=== PATIENT | male | born 1940 | race Caucasian/White ===

== ENCOUNTER 2020-06-28 11:22 | Inpatient (IN) | payer MEDICARE, BC, SELFPAY ==
[2020-06-28] VITALS (10 sets, daily range): BP systolic 112–157; BP diastolic 56–85; PULSE 83–124; RESP 17–20; TEMP 36.8–39.3; O2SAT 92–97
--- NOTE | 2020-06-28 11:36 | ECG_ITS ---
[facility] Test Date: 2020-06-28 Pat Name: Sheng Patiño Department: Room: Gender: Male [employer] Supervisor: : 1940 Requested By: Maria Luisa Kenyon Order Number: [id number] Minoo MD: gO Lewis M.D. Measurements Intervals [place] Rate: 107 P: 84 NV: 206 QRS: -50 QRSD: 81 T: 71 QT: 307 QTc: 410 Interpretive Statements SINUS TACHYCARDIA LEFT ANTERIOR FASCICULAR BLOCK [QRS AXIS <= -45, QR IN I, RS IN II] POSSIBLE ANTERIOR MYOCARDIAL INFARCTION , OF INDETERMINATE AGE [30 ms Q WAVE IN V3/V4, OR R < 0.2 mV IN V4] Compared to ECG 12/02/2015 06:29:59 Left anterior fascicular block now present Myocardial infarct finding now present Sinus rhythm no longer present Left-axis deviation no longer present T-wave abnormality no longer present Possible ischemia no longer present Electronically Signed On 06-28-2020 22:43:59 CDT by Og Lewis M.D. [email or web address].[facility].[employer]/store/[id number]
--- NOTE | 2020-06-28 11:37 | XR_ITS ---
WS: [id number] EXAM: AP CHEST: PORTABLE UPRIGHT DATE OF EXAM: 06/28/2020, 1141 hours COMPARISON: Chest x-ray from 12/01/2015 HISTORY: Patient is 80 years old with fever and abdominal pain.. FINDINGS: The cardiac silhouette is normal in size. The mediastinal contours are normal. The pulmonary vas cularity is normal. Lungs are clear. There is no effusion or pneumothorax. Bone density is decreas ed. There are secondary signs of full thickness rotator cuff tearing in the right shoulder demonstrat ed. XR/XR chest 1V portable [id number] IMPRESSION: No acute pulmonary disease.
--- NOTE | 2020-06-28 11:40 | ED_ITS ---
HPI - Abdominal Pain General: Chief Complaint: Abdominal Pain Stated Complaint: abd pain Time Seen by Provider: 06/28/20 11:23 History of Present Illness: HPI narrative: This patient is an 80-year-old male presenting today by EMS. His family reports that he woke up this morning complaining of abdominal pain. The patient denies abdominal pain now. He does tell me he had pain earlier and has been vomiting. He is otherwise very confused and cannot provide any history including his own birthday. The patient's son, Elisha MOCTEZUMA, arrived and provided further history. He tells me that the patient did not have abdominal pain this morning but had chest pain. He also was sick . By this the son means he was having shaking chills and vomiting. The patient does have baseline dementia however his son says he has been much much worse over the past 2 days. He has been almost too weak to get up and move around. He has been getting out of breath with just mild exertion. His son said a few months ago he was able to get around quite easily. His son also noted that he takes an injectable once a week medicine for diabetes and they have noticed that when they given to him on Thursday he is routinely sick with vomiting on Thursday. The nurse at the doctor's office told him to just give half a dose which they have been doing for the past few weeks. That has seemed to help and he did not have vomiting on this past Thursday. MD elicited complaint: abdominal pain Associated Symptoms: Reports vomiting Review of Systems General: Reports: ROS unobtainable due to mental status GI: Reports: vomiting [facility] ED PFSH: Medical History Coronary artery disease Diabetes Hydronephrosis, left Hyperlipidemia Urinary retention Social History (Updated 06/29/20 @ 16:18 by Lupis Mcgill MD) Smoking and tobacco status: unknown if ever smoked Alcohol intake: unknown Physical Exam Const: COMMON NORMALS: no acute distress, patient oriented x3 and alert GENERAL APPEARANCE: cooperative and comfortable HENMT: HEAD & SCALP: normal to inspection FACE & SINUS: normal facial exam Eye: GENERAL EYE: appearance normal, both eyes and all related structures Neck/C-Spine: COMMON NORMALS: supple, no meningeal signs and no JVD Chest: COMMONS NORMALS: normal inspection of the chest Resp: COMMON NORMALS: normal respiratory effort, No use of accessory muscles and clear to auscultation bilaterally AUSCULTATION: clear to auscultation bilaterally Cardio: COMMON NORMALS: no JVD, regular rate, regular rhythm and No murmurs present (Cardio) RATE: regular rate RHYTHM: regular rhythm GI: COMMON NORMALS: Normal to inspection, nondistended, normoactive bowel sounds present, Soft to palpation and non-tender INSPECTION: Yes normal to inspection AUSCULTATION: Yes normoactive bowel sounds PALPATION: Yes Soft to palpation Back/Pelvis: COMMON NORMALS: thoracic and lumbar spine normal to inspection Extremity: COMMON NORMALS: normal to inspection Neuro: COMMON NORMALS: patient oriented x3, moves all extremities, no focal motor deficits and no sensory deficits noted SENSORIUM/ORIENTATION: Yes alert MENINGEAL SIGNS: Yes no meningeal signs Psych: COMMON NORMALS: cooperative and normal affect THOUGHT PROCESS: confused and Confabulating thought process present Skin: COMMON NORMALS: no rashes or lesions noted and turgor normal GENERAL SKIN EXAM: no rashes or lesions noted and turgor normal Course ED course: Patient will be admitted for further evaluation. He has had a fairly acute change in his mental status over the past couple of days. No clear cause for this is been found. His son said that he had not been complaining of abdominal pain but for my exam he was mildly tender on the left. He does have significant hydronephrosis but is not clear if this is acute. Vital Signs: Vital signs: Vital Signs Temperature 97.7 F 07/01/20 04:00 Pulse Rate 67 07/01/20 04:00 Respiratory Rate 18 07/01/20 04:00 Blood Pressure 154/71 07/01/20 04:00 Pulse Oximetry 98 07/01/20 04:00 MDM - Abdominal Pain Lab Data: Labs: Lab Results 06/28/20 06/28/20 06/28/20 Range/Units 11:54 11:54 11:54 WBC 4.8 (4.0-10.0) 10^3/ uL RBC 3.99 L (4.1-5.3) 10^6/u L Hgb 12.7 (11.7-16.6) g/dL Hct 40.1 L (42.0-52.0) % MCV 100.5 H (80-94) fL MCH 31.8 (28.0-34.0) pg MCHC 31.7 (30.0-36.0) g/dL RDW 14.3 (12.1-15.1) % Plt Count 118 L (130-400) 10^3/c mm MPV 9.9 (7.4-10.4) fL Neut % (Auto) 87.8 % Lymph % (Auto) 6.0 % [place] % (Auto) 4.8 % Eos % (Auto) 0.8 % Baso % (Auto) 0.4 % Neut # (Auto) 4.24 (1.8-7.7) 10^3/u L Lymph # (Auto) 0.3 L (0.8-4.8) 10^3/u L [place] # (Auto) 0.2 (0.2-0.9) 10^3/u L Eos # (Auto) 0.0 (0.0-0.8) 10^3/u L Baso # (Auto) 0.0 (0.0-0.1) 10^3/u L Nucleated RBC % (a uto) 0 % Nucleated RBCs # 0.0 /100WBC Sodium 135 L (136-145) mmol/L Potassium 4.7 (3.5-5.1) mmol/L Chloride 101 (98-107) mmol/L Carbon Dioxide 21 L (22-29) mmol/L Anion Gap 17.7 (5-19) BUN 19 (8-23) mg/dL Creatinine 1.2 (0.7-1.2) mg/dL GFR Calculation Not Reportable Glucose 179 H (65-115) mg/dL Estimat Average Gl ucose Hemoglobin A1c (4.0-6.0) % Calculated Osmolal ity 281 L (285-295) mOsm/k g Lactic Acid 3.1 H (0.5-2.2) mmol/L Calcium 9.6 (8.5-10.5) mg/dL Total Bilirubin 0.6 (0.15-1.2) mg/dL AST 27 (0-40) U/L ALT 19 (0-41) U/L Alkaline Phosphata se 91 (40-130) IU/L Troponin T Baselin e (0-15) ng/L Troponin T 120 Min breana (0-15) ng/L Delta Troponin T (0-10) ABS# C-Reactive Protein (0.0-4.9) mg/L Total Protein 7.7 (6.6-8.7) g/dL Albumin 4.3 (3.5-5.2) g/dL Globulin 3.4 (1.3-4.6) g/dL Lipase (13-60) U/L Procalcitonin (0-0.5) ng/mL TSH (0.27-4.20) uIU/ mL Urine Color (Yellow) Urine Appearance (CLEAR) Urine pH (5-7) Ur Specific Gravit y (1.005-1.030) Urine Protein (Negative) Urine Glucose (UA) (Normal) Urine Ketones (Negative) Urine Blood (Negative) Urine Nitrate (Negative) Urine Bilirubin (NEGATIVE) Prot Sulfosalicyli c Acd (Negative) Urine Urobilinogen (Negative) mg/dL Ur Leukocyte Lilli ase (Negative) Urine RBC (0-2) /hpf Urine WBC (0-5) /hpf Ur Squamous Epith Cells (0-5) Amorphous Sediment Urine Bacteria (NONE) 06/28/20 06/28/20 06/28/20 Range/Units 11:54 11:54 11:54 WBC (4.0-10.0) 10^3/ uL RBC (4.1-5.3) 10^6/u L Hgb (11.7-16.6) g/dL Hct (42.0-52.0) % MCV (80-94) fL MCH (28.0-34.0) pg MCHC (30.0-36.0) g/dL RDW (12.1-15.1) % Plt Count (130-400) 10^3/c mm MPV (7.4-10.4) fL Neut % (Auto) % Lymph % (Auto) % [place] % (Auto) % Eos % (Auto) % Baso % (Auto) % Neut # (Auto) (1.8-7.7) 10^3/u L Lymph # (Auto) (0.8-4.8) 10^3/u L [place] # (Auto) (0.2-0.9) 10^3/u L Eos # (Auto) (0.0-0.8) 10^3/u L Baso # (Auto) (0.0-0.1) 10^3/u L Nucleated RBC % (a uto) % Nucleated RBCs # /100WBC Sodium (136-145) mmol/L Potassium (3.5-5.1) mmol/L Chloride (98-107) mmol/L Carbon Dioxide (22-29) mmol/L Anion Gap (5-19) BUN (8-23) mg/dL Creatinine (0.7-1.2) mg/dL GFR Calculation Glucose (65-115) mg/dL Estimat Average Gl ucose 146 Hemoglobin A1c 6.7 H (4.0-6.0) % Calculated Osmolal ity (285-295) mOsm/k g Lactic Acid (0.5-2.2) mmol/L Calcium (8.5-10.5) mg/dL Total Bilirubin (0.15-1.2) mg/dL AST (0-40) U/L ALT (0-41) U/L Alkaline Phosphata se (40-130) IU/L Troponin T Baselin e 34 H (0-15) ng/L Troponin T 120 Min breana (0-15) ng/L Delta Troponin T (0-10) ABS# C-Reactive Protein 3.9 (0.0-4.9) mg/L Total Protein (6.6-8.7) g/dL Albumin (3.5-5.2) g/dL Globulin (1.3-4.6) g/dL Lipase 55 (13-60) U/L Procalcitonin 0.81 H (0-0.5) ng/mL TSH (0.27-4.20) uIU/ mL Urine Color (Yellow) Urine Appearance (CLEAR) Urine pH (5-7) Ur Specific Gravit y (1.005-1.030) Urine Protein (Negative) Urine Glucose (UA) (Normal) Urine Ketones (Negative) Urine Blood (Negative) Urine Nitrate (Negative) Urine Bilirubin (NEGATIVE) Prot Sulfosalicyli c Acd (Negative) Urine Urobilinogen (Negative) mg/dL Ur Leukocyte Lilli ase (Negative) Urine RBC (0-2) /hpf Urine WBC (0-5) /hpf Ur Squamous Epith Cells (0-5) Amorphous Sediment Urine Bacteria (NONE) 06/28/20 06/28/20 06/28/20 Range/Units 11:54 13:55 14:15 WBC (4.0-10.0) 10^3/ uL RBC (4.1-5.3) 10^6/u L Hgb (11.7-16.6) g/dL Hct (42.0-52.0) % MCV (80-94) fL MCH (28.0-34.0) pg MCHC (30.0-36.0) g/dL RDW (12.1-15.1) % Plt Count (130-400) 10^3/c mm MPV (7.4-10.4) fL Neut % (Auto) % Lymph % (Auto) % [place] % (Auto) % Eos % (Auto) % Baso % (Auto) % Neut # (Auto) (1.8-7.7) 10^3/u L Lymph # (Auto) (0.8-4.8) 10^3/u L [place] # (Auto) (0.2-0.9) 10^3/u L Eos # (Auto) (0.0-0.8) 10^3/u L Baso # (Auto) (0.0-0.1) 10^3/u L Nucleated RBC % (a uto) % Nucleated RBCs # /100WBC Sodium (136-145) mmol/L Potassium (3.5-5.1) mmol/L Chloride (98-107) mmol/L Carbon Dioxide (22-29) mmol/L Anion Gap (5-19) BUN (8-23) mg/dL Creatinine (0.7-1.2) mg/dL GFR Calculation Glucose (65-115) mg/dL Estimat Average Gl ucose Hemoglobin A1c (4.0-6.0) % Calculated Osmolal ity (285-295) mOsm/k g Lactic Acid (0.5-2.2) mmol/L Calcium (8.5-10.5) mg/dL Total Bilirubin (0.15-1.2) mg/dL AST (0-40) U/L ALT (0-41) U/L Alkaline Phosphata se (40-130) IU/L Troponin T Baselin e (0-15) ng/L Troponin T 120 Min [place] 30.87 H (0-15) ng/L Delta Troponin T -3.13 L (0-10) ABS# C-Reactive Protein (0.0-4.9) mg/L Total Protein (6.6-8.7) g/dL Albumin (3.5-5.2) g/dL Globulin (1.3-4.6) g/dL Lipase (13-60) U/L Procalcitonin (0-0.5) ng/mL TSH 2.15 (0.27-4.20) uIU/ mL Urine Color Yellow (Yellow) Urine Appearance Hazy A (CLEAR) Urine pH 8 H (5-7) Ur Specific Gravit y 1.010 (1.005-1.030) Urine Protein Neg (Negative) Urine Glucose (UA) Norm (Normal) Urine Ketones Negative (Negative) Urine Blood 3+ H (Negative) Urine Nitrate Negative (Negative) Urine Bilirubin Neg (NEGATIVE) Prot Sulfosalicyli c Acd Negative (Negative) Urine Urobilinogen Norm (Negative) mg/dL Ur Leukocyte Lilli ase Negative (Negative) Urine RBC 25-40 H (0-2) /hpf Urine WBC None (0-5) /hpf Ur Squamous Epith Cells Rare (0-5) Amorphous Sediment Not Reportable Urine Bacteria 1+ H (NONE) EKG Data ^: EKG 1: EKG interpretation date: 06/28/20 EKG interpretation time: 12:01 Interpretation: Sinus tachycardia with a rate of 107. Left lenticular fascicular block. HI interval is 206. QRS duration is 81 ms. Poor R wave progression. No acute ischemic changes. 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
--- NOTE | 2020-06-28 11:49 | PC.NURSE ---
pt trying to climb out of bed. pt appears disoriented. pt not verbalizing complaints to nurse. ED physician notified.
--- NOTE | 2020-06-28 11:55 | PC.NURSE ---
EKG done at 1150 and shown to ER doctor
[2020-06-28 12:00] LABS: Basophils % 0.4 %; Eosinophils % 0.8 %; Hematocrit 40.1 % (42.0-52.0); Hemoglobin 12.7 g/dL (11.7-16.6); Lymphocytes # 0.3 10^3/uL (0.8-4.8); Mean Corpuscular HGB Conc 31.7 g/dL (30.0-36.0); Mean Corpuscular Hemoglobin 31.8 pg (28.0-34.0); Mean Corpuscular Volume 100.5 fL (80-94); Mean Platelet Volume 9.9 fL (7.4-10.4); Monocytes # 0.2 10^3/uL (0.2-0.9); Monocytes % 4.8 %; Neutrophils # 4.24 10^3/uL (1.8-7.7); Neutrophils % 87.8 %; Nucleated Red Blood Cells % 0 %; Platelet Count 118 10^3/cmm (130-400); Red Blood Count 3.99 10^6/uL (4.1-5.3); Red Cell Distribution Width 14.3 % (12.1-15.1); White Blood Count 4.8 10^3/uL (4.0-10.0)
[2020-06-28] MEDS: sodium chloride 0.9% 500 ML 999 ML IV (12:14)
[2020-06-28 12:25] LABS: Alanine Aminotransferase 19 U/L (0-41); Albumin Level 4.3 g/dL (3.5-5.2); Alkaline Phosphatase 91 IU/L (40-130); Anion Gap 17.7 (5-19); Aspartate Amino Transferase 27 U/L (0-40); Blood Urea Nitrogen 19 mg/dL (8-23); Calcium 9.6 mg/dL (8.5-10.5); Carbon Dioxide 21 mmol/L (22-29); Chloride 101 mmol/L (98-107); Globulin 3.4 g/dL (1.3-4.6); Glucose 179 mg/dL (65-115); Osmolality Calculated 281 mOsm/kg (285-295); Potassium 4.7 mmol/L (3.5-5.1); Sodium 135 mmol/L (136-145); Total Bilirubin 0.6 mg/dL (0.15-1.2); Total Protein 7.7 g/dL (6.6-8.7)
[2020-06-28 12:26] LABS: Lactic Sepsis W/Reflex 3.1 mmol/L (0.5-2.2)
--- NOTE | 2020-06-28 12:35 | CT_ITS ---
WS: [id number] CT ABDOMEN AND PELVIS WITH CONTRAST HISTORY: abdominal pain, fever TECHNIQUE: Imaging performed of the abdomen and pelvis with IV contrast. Single phase imaging of the abdomen. Coronal and sagittal reformats are submitted. All CT scans at [facility] use at least one of these dose optimization techniques: automated exposure control; mA and/or kV adjustment per patient size (includes targeted exams where dose is matched to clinical indication); or iterativ e reconstruction. IV CONTRAST: Visipaque 320; 95 mL IV. Oral contrast: No DLP: 2664.06 mGy.cm COMPARISON: None available. Lower thorax: Subsegmental atelectasis at the lung bases. Normal size heart. Heavy calcification in t he [place] coronary arteries. No hiatal hernia. Liver/biliary system: Normal size liver. 3.0 cm cyst towards the diaphragmatic surface of the liver. No bile duct dilatation. Gallbladder: Normal. No gallstones or wall thickening. No pericholecystic fluid. Pancreas: Atrophied pancreas. No mass. Spleen: Normal. Adrenal glands: Normal. Right kidney: Mild diffuse cortical thinning. Cortical cyst measures 2.8 cm from the mid kidney. Ther e are additional smaller cysts. Left kidney: Cortical thinning. Moderate to severe hydronephrosis. Dilated renal pelvis and dilated t ortuous LEFT ureter. The entire ureter is dilated. The very distal ureter is poorly visualized due to edema hardening artifact secondary to the bilateral hip prostheses. There is also mild increased den sity in the renal pelvis suggests there may be an infectious process. Aorta: Mild atherosclerosis with no aneurysm. Lymphadenopathy: None. Free fluid: None. GI tract: Extensive diverticular disease throughout the colon. No GI tract obstruction. No definite a cute diverticulitis. Abdominal wall: Unremarkable abdominal wall. No hernia. Pelvis: Dilated urinary bladder. Large portion of the bladder is being obscured by artifact secondary to the hip prostheses. Bones: Increase in thoracic kyphosis. There is osteopenia. L4 anterolisthesis by 3 mm. Bilateral hip prostheses. CT/CT abdomen pelvis w con* [id number] IMPRESSION: 1. Significant LEFT hydroureteronephrosis of uncertain etiology. The very dist al LEFT ureter is obscured by artifact from the hip prostheses. Distal ureteral calcification, stricture or mass should be considered. 2. Extensive colonic diverticulosis without evidence for acute diverticulitis. 3. No ascites. 4. RIGHT renal cysts.
--- NOTE | 2020-06-28 12:36 | CT_ITS ---
WS: [id number] CT HEAD NONCONTRAST HISTORY: AMS TECHNIQUE: Contiguous axial imaging performed through the brain in 2.5 mm imaging. Bone and soft tiss ue windows. Sagittal and coronal reformats reviewed. All CT scans at [facility] use at le ast one of these dose optimization techniques: automated exposure control; mA and/or kV adjustment pe r patient size (includes targeted exams where dose is matched to clinical indication); or iterative r econstruction. DLP: 824.3 mGy.cm COMPARISON: None available. No acute intracranial hemorrhage, midline shift or mass effect. Moderate atrophy and chronic ischemic disease. Ventricles: Normal size with no hydrocephalus. Paranasal sinuses: As visualized are clear. Mastoid air cells: Well pneumatized. Calvarium and scalp: Skull is intact with no soft tissue edema or swelling. Moderate atherosclerosis intracranial carotid arteries. CT/CT head wo con* [id number] IMPRESSION: 1. No acute intracranial hemorrhage or edema. 2. Moderate atrophy and chronic ischemic disease.
[2020-06-28 12:57] LABS: Troponin(5th) Baseline 34 ng/L (0-15)
[2020-06-28 14:01] LABS: Reflex Lactate Order REFLEX LACTIC ORDERD
[2020-06-28 14:22] LABS: Troponin 5 2HR 30.87 ng/L (0-15); Troponin 5 2HR Delta -3.13 ABS# (0-10)
--- NOTE | 2020-06-28 14:26 | PC.NURSE ---
EKG done at 1425 and shown to ER doctor
--- NOTE | 2020-06-28 14:36 | ECG_ITS ---
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 Measurements Intervals [place] Rate: 96 P: 22 NE: 191 QRS: -44 QRSD: 81 T: 91 QT: 333 QTc: 422 Interpretive Statements SINUS RHYTHM LEFT AXIS DEVIATION [QRS AXIS < -30] PATTERN CONSISTENT WITH PULMONARY DISEASE NONSPECIFIC T-WAVE ABNORMALITY Compared to ECG 06/28/2020 11:52:33 Left-axis deviation now present T-wave abnormality now present Sinus tachycardia no longer present Left anterior fascicular block no longer present Myocardial infarct finding no longer present Electronically Signed On 06-28-2020 23:28:38 CDT by Og Lewis M.D. [email or web address]/store/OM/[id number]
--- NOTE | 2020-06-28 14:38 | PC.NURSE ---
Pt to CT by stretcher with tech
[2020-06-28] MEDS: iodixanol 320 mg/mL 100mL Btl IV (14:42)
[2020-06-28 14:43] LABS: Add Urine Microscopic? YES; Bilirubin Urine Neg (NEGATIVE); Blood Urine 3+ (Negative); Glucose Urine UA Norm (Normal); Ketones Urine Negative (Negative); Leukocyte Esterase Urine Negative (Negative); Nitrate Urine Negative (Negative); Protein Urine Neg (Negative); RBC Urine 25-40 /hpf (0-2); Sulfosalicylic Acid Urine Negative (Negative); Urine Appearance Hazy (CLEAR); Urine Color Yellow (Yellow); Urobilinogen Urine Norm (Negative); pH Urine 8 (5-7)
[2020-06-28 14:44] LABS: Add Urine Culture? Yes; Bacteria Urine 1+; Squamous Epithelial Cell Urine RARE (0-5)
--- NOTE | 2020-06-28 16:40 | PC.NURSE ---
gave patient a drink of water
[2020-06-28 16:54] LABS: Procalcitonin 0.81 ng/mL (0-0.5)
[2020-06-28 17:04] LABS: C Reactive Protein 3.9 mg/L (0.0-4.9); Lipase 55 U/L (13-60)
[2020-06-28] MEDS: haloperidol inj 5 mg/mL INJ 1 mL IVP (17:31)
--- NOTE | 2020-06-28 17:38 | PC.NURSE ---
pt swabbed for COVID 19 coronavirus. Pt placed on droplet isolation precautions
--- NOTE | 2020-06-28 18:21 | P.HP_ITS ---
Providers/Chief Complaint Admitting Physician: Lupis Mcgill MD Primary Care Provider: Nils Guerrero MD Chief Complaint: abd pain History of Present Illness Sheng Patiño is a 80 year old male With a past medical history of dementia, diabetes mellitus, neuropathic pain, who presents to the ER brought by the son today with chief complaint of altered mental status. I have been unable to reach the son to talk today, history is obtained by talking to the ER physician who states that patient was reportedly in his usual state of health until this morning when he started to develop shaking chills and then became more confused during course of the day. It is possible that he had complained of some chest pain versus abdominal pain. He is unable to participate in history taking right now. He had a T-max of 99 Fahrenheit here. Lactate was elevated. He is being admitted now due to concerns for sepsis. Review of Systems 2 General: Reports: ROS unobtainable due to medical condition and ROS unobtainable due to mental status Medications/Allergies Home Medications Medication Instructions Recorded Confirmed Last Taken Type cetirizine 10 mg PO BID 06/28/20 06/28/20 06/28/20 History donepezil 10 mg PO DAILY 06/28/20 06/28/20 06/28/20 History glimepiride 2 mg PO DAILY 06/28/20 06/28/20 Unknown History metformin 1,000 mg PO BID 06/28/20 06/28/20 Unknown History montelukast 10 mg PO DAILY 06/28/20 06/28/20 06/27/20 History omeprazole 20 mg PO DAILY 06/28/20 06/28/20 06/28/20 History paroxetine HCl 30 mg PO DAILY 06/28/20 06/28/20 06/28/20 History pioglitazone 30 mg PO DAILY 06/28/20 06/28/20 Unknown History polyethylene glycol 3350 [ClearLax] See Rx Instructions .ROUTE .COMPLEX 06/28/20 06/28/20 Unknown History ropinirole 1 mg PO BEDTIME 06/28/20 06/28/20 06/27/20 History simvastatin 40 mg PO DAILY 06/28/20 06/28/20 06/28/20 History Allergies Allergy/AdvReac Type Severity Reaction Status Date / Time No Known Allergies Allergy Verified 06/28/20 12:20 PFSH Acute PFSH: Medical History Coronary artery disease Diabetes Hydronephrosis, left Hyperlipidemia Urinary retention Social History (Updated 06/29/20 @ 16:18 by Lupis Mcgill MD) Smoking and tobacco status: unknown if ever smoked Alcohol intake: unknown Vitals/I&O/Wt Last Vital Signs Temp 98.3 F 06/28/20 16:39 Pulse 83 06/28/20 17:36 Resp 20 H 06/28/20 11:23 BP 154/80 06/28/20 17:36 Pulse Ox 95 06/28/20 17:36 Physical Exam Narrative: EXAM NARRATIVE: GEN: Confused and lethargic HEENT: NC/AT CVS: S1S2 N RS: CTA B/L Abd: Soft, nt/nd , bs+ GILL TENDER: unable to assess, moves all extremities in bed Data : 06/29/20 05:00 06/29/20 05:00 Micro: Microbiology 06/28/20 13:55 Blood Culture - Preliminary Blood SPECIMEN COLLECTED 06/28/20 11:54 Blood Culture - Preliminary Blood SPECIMEN COLLECTED A&P Assessment and plan (1) Sepsis: Status: Acute Qualifiers: Sepsis type: sepsis due to unspecified organism Sepsis acute organ dysfunction status: with acute organ dysfunction Severe sepsis acute organ dysfunction type: encephalopathy Severe sepsis shock status: without septic shock Qualified Code(s): A41.9 - Sepsis, unspecified organism; R65.20 - Severe sepsis without septic shock; G93.40 - Encephalopathy, unspecified (2) AMS (altered mental status): Status: Acute Qualifiers: Altered mental status type: unspecified Qualified Code(s): R41.82 - Altered mental status, unspecified (3) Hydronephrosis: Status: Inactive Qualifiers: Hydronephrosis type: unspecified Qualified Code(s): N13.30 - Unspecified hydronephrosis (4) Urinary retention: Status: Acute (5) Diabetes mellitus: Status: Acute Qualifiers: Diabetes mellitus type: type 2 Diabetes mellitus residential insulin use: without marine oil terminal superintendent use Additional A&P Information # AMS c/o chills at home, tmax here 99F Meets sepsis criteria with elevated lactate and fever,chills possible infectious source left hydronpehrois, lower part not visualized suspect methabolic encephalopathy- start CTX, vancomycin and acyclovir, cannot r /o meningitis US abdomen to evaluate lower end of ureter ?stone vs mass urology consult in am if no improvement in the next 24 hrs, likely proceed with LP blood cx pending covid ag negative # dementia: no h/o available, cant reach son, uncertain of baseline # DM: ISS Full code Dvt ppx: Attestations Medical Necessity Statement*: >2midnight admission for evakuation fo sepsis, source under evaluation Coding Level of Care Code Acute 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 Attendant for [facility] Fwd Diagnoses Sepsis A41.9; R65.20; G93.40 Sepsis type: sepsis due to unspecified organism Sepsis acute organ dysfunction status: with acute organ dysfunction Severe sepsis acute organ dysfunction type: encephalopathy Severe sepsis shock status: without septic shock AMS (altered mental status) R41.82 Altered mental status type: unspecified Hydronephrosis N13.30 Hydronephrosis type: unspecified Urinary retention R33.9 Diabetes mellitus E11.9 Diabetes mellitus type: type 2 Diabetes mellitus marine oil terminal superintendent insulin use: without residential use
--- NOTE | 2020-06-28 18:27 | PC.NURSE ---
jen membreno nurse refused to take ER report at 1825
[2020-06-28 18:44] LABS: SARS Covid-2 Antigen Negative (Negative)
[2020-06-28 18:46] LABS: Estmated Average Glucose 146; Hemoglobin A1C 6.7 % (4.0-6.0)
--- NOTE | 2020-06-28 18:52 | PC.NURSE ---
pt continues to be agitated and disoriented. sitter remains at bedside
--- NOTE | 2020-06-28 18:52 | PC.NURSE ---
orders received earlier from ER physician to place catheter. Pt able to use urinal with assistance. ED physician notified. Catheter not placed
[2020-06-28 19:32] LABS: Troponin 5 6HR 34.96 ng/L (0-15); Troponin 5 6HR Delta 0.96 ng/L (0-12)
[2020-06-28 19:33] LABS: Lactic Acid level (Lactate) 5.8 mmol/L (0.5-2.2)
[2020-06-28] MEDS: enoxaparin 40 mg/0.4 mL Syringe SUBCUT (20:04)
[2020-06-28] MEDS: sodium chloride 0.9% 1,000 ML 75 ML IV (20:05)
[2020-06-28] MEDS: cefTRIAXone 2,000 MG in sodium chloride 0.9% (plus) 50 ML 100 MG IV (20:05)
[2020-06-28 20:52] LABS: Thyroid Stimulating Hormone 2.15 uIU/mL (0.27-4.20)
[2020-06-28] MEDS: acetaminophen 650 mg Supp PR (21:04)
[2020-06-28] MEDS: sodium chloride 0.9% 1,000 ML 999 ML IV (21:21)
[2020-06-28 21:51] LABS: Glucose Point of Care 196 mg/dL (70-110)
--- NOTE | 2020-06-28 22:53 | PC.PHAR ---
Vancomycin is dosed at 1500mg IVPB every 18 hours to produce a predicted trough level of 13.81 (population based pharmacokinetic analysis). A trough level has been ordered from the lab to be obtained before the fourth dose to confirm and adjust if needed.
[2020-06-29 04:00] VITALS: BP 125/75; PULSE 81; RESP 17; TEMP 37.1; O2SAT 97
[2020-06-29 05:13] LABS: Basophils % 0.2 %; Hematocrit 34.4 % (42.0-52.0); Hemoglobin 10.9 g/dL (11.7-16.6); Lymphocytes # 0.5 10^3/uL (0.8-4.8); Lymphocytes % 9.9 %; Mean Corpuscular HGB Conc 31.7 g/dL (30.0-36.0); Mean Corpuscular Hemoglobin 32.8 pg (28.0-34.0); Mean Corpuscular Volume 103.6 fL (80-94); Mean Platelet Volume 10.2 fL (7.4-10.4); Monocytes # 0.2 10^3/uL (0.2-0.9); Monocytes % 3.6 %; Neutrophils # 4.01 10^3/uL (1.8-7.7); Neutrophils % 86.1 %; Nucleated Red Blood Cells % 0 %; Platelet Count 91 10^3/cmm (130-400); Red Blood Count 3.32 10^6/uL (4.1-5.3); Red Cell Distribution Width 14.6 % (12.1-15.1); White Blood Count 4.7 10^3/uL (4.0-10.0)
[2020-06-29 06:14] LABS: Alanine Aminotransferase 17 U/L (0-41); Albumin Level 3.6 g/dL (3.5-5.2); Alkaline Phosphatase 65 IU/L (40-130); Anion Gap 13.5 (5-19); Aspartate Amino Transferase 26 U/L (0-40); Blood Urea Nitrogen 17 mg/dL (8-23); Calcium 8.6 mg/dL (8.5-10.5); Carbon Dioxide 23 mmol/L (22-29); Chloride 104 mmol/L (98-107); Globulin 2.9 g/dL (1.3-4.6); Glucose 137 mg/dL (65-115); Osmolality Calculated 281 mOsm/kg (285-295); Potassium 4.5 mmol/L (3.5-5.1); Sodium 136 mmol/L (136-145); Total Bilirubin 0.5 mg/dL (0.15-1.2); Total Protein 6.5 g/dL (6.6-8.7)
[2020-06-29 07:08] LABS: Glucose Point of Care 116 mg/dL (70-110)
[2020-06-29 08:00] VITALS: BP 117/68; PULSE 84; RESP 16; TEMP 36.8; O2SAT 98
[2020-06-29] MEDS: cefTRIAXone 2,000 MG in sodium chloride 0.9% (plus) 50 ML 100 MG IV ×2 (08:40→21:11)
[2020-06-29 11:07] LABS: Glucose Point of Care 118 mg/dL (70-110)
[2020-06-29 12:00] VITALS: BP 117/68; BP 126/63; PULSE 84; RESP 16; TEMP 36.8; TEMP 37.1; O2SAT 97
--- NOTE | 2020-06-29 13:58 | PC.CHAP ---
Pastoral Care Encounter/Spiritual Assessment Type of Contact [] Declined director ehs visit [] Patient/Family/Request visit [] Outpatient visit [] Follow-up visit [] Physician referral [] Code/Alert [x] Routine visit [] Staff referral [] Actively dying [] Patient sleeping [] Family support [] [] Out of room [] Palliative care [] [] Receiving care in room [] Pre-surgical visit [] Trauma [] Long length of stay [] ICU visit [] Other: Relational/Emotional Strength [] Patient feels connected with others/family/visitors/staff [] Distress [] Loneliness/isolation [] Abandonment Spirituality of Patient [] Person of Kiesha [] Attends Cheondoism of their Kiesha [] Believes in Prayer [] Reads Bible or Presybeterian materials [x] There are Spiritual issues to be addressed Campus Supervisor Interventions [] Prayer [x] Active listening [x] Non-anxious presence [] Spiritual/emotional support [] Crisis/trauma care [] Spiritual counseling [] Bereavement support [] Provided bereavement packet [] Provided Bible/devotional materials [] Provided toy/stuffed animal, coloring book to patient or family member [] Provided Communion [] Anointing/[place] [] Salvation [x] Completed spiritual assessment [] Other: Impact on Illness or Injury [] Angry [] Fearful [x] Anxious [] Often cries [] Exhaustion [] Unable to work [] Unable to attend buddhism [] Unable to walk/stand [] Unable to read [] Unable to drive [] Unable to eat/drink [] Unable to sleep [x] Unable to be with family [] Patient intubated [] Other: Summary Patient stated he didn't know if he wanted prayer or not. Patient stated repeatedly that he didn't know why he was here and didn't know when he was going to be able to leave. He stated that he felt just fine. When the director ehs asked him if he was still having abdominal pain the patient stated that he wasn't having any pain. Patient was demonstrating some anxiousness and wanted to go home to be with his son. Campus Supervisor spoke with nursing staff as to whether or not a decision had been reached about when he may be able to go home. Nurse stated that the they had not been informed by the doctor of his being released. Campus Supervisor let the patient know what the nurse had stated and he stated I don't know when they'll let me go home. Time spent with patient 10 minutes
--- NOTE | 2020-06-29 15:27 | PM.CONSULT ---
Providers/Reason For Consult Consulting Physican/Specialty*: Taylor/Urology Reason for Consult*: Left Hydronephrosis Attending Physician: Lupis Mcgill MD Primary Care Provider: Nils Guerrero MD History of Present Illness History of Present Illness Sheng Patiño is a 80 year old male who I evaluated for the first time today at the request of Dr. Mcgill for left hydronephrosis, urinary retention, and concern for possible urinary source of sepsis. Patient presented to the emergency department yesterday with complaints of decreased mentation, chills, vomiting, abdominal pain. His mental status was much worse than his baseline dementia. Information was obtained from his son who knew his status well. Work-up: Fever, stable vital signs otherwise. White blood cell count of 4.8, creatinine 1.2, elevated lactic acid, normal LFTs. 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 There was significant atrophy of left kidney. No acute inflammatory changes around the left kidney or ureter the bladder was quite distended. Bladder was drained and had about 1200 cc in it. At time of admission the patient could not really relate any significant symptoms. His clinical status has improved. The source of his infection is not clear. Today he states that he is not had any renal colicky type pain. Denies any tenderness in the left flank or left upper quadrant. Does state that he voids frequently but denies history of retention. I do not think his answers are completely reliable. Genitourinary physical findings: Normal genitalia. No CVA tenderness. No left upper quadrant tenderness My general impression that he does not have obstructive pyelonephritis, the hydronephrosis appears to be chronic and without clear etiology at this point. He does need to be worked up but in the absence of clear urinary source of sepsis and no acute symptoms related to the left collecting system and no evidence of progressive renal dysfunction at this point I would hold on placing a stent. Would recommend repeating the urinalysis and consider empiric stenting if in fact his condition deteriorates or the urinalysis shows evidence of urine source for infection. Review of Systems Narrative: In general he denies any significant symptoms but I do not think he is able to give too many accurate answers at this point. The information that have been obtained by the emergency physician from his son is already mentioned above Meds/Allergies Home Medications and Allergies Home Medications Medication Instructions Recorded Confirmed Last Taken Type cetirizine 10 mg PO BID 06/28/20 06/28/20 06/28/20 History donepezil 10 mg PO DAILY 06/28/20 06/28/20 06/28/20 History glimepiride 2 mg PO DAILY 06/28/20 06/28/20 Unknown History metformin 1,000 mg PO BID 06/28/20 06/28/20 Unknown History montelukast 10 mg PO DAILY 06/28/20 06/28/20 06/27/20 History omeprazole 20 mg PO DAILY 06/28/20 06/28/20 06/28/20 History paroxetine HCl 30 mg PO DAILY 06/28/20 06/28/20 06/28/20 History pioglitazone 30 mg PO DAILY 06/28/20 06/28/20 Unknown History polyethylene glycol 3350 [ClearLax] See Rx Instructions .ROUTE .COMPLEX 06/28/20 06/28/20 Unknown History ropinirole 1 mg PO BEDTIME 06/28/20 06/28/20 06/27/20 History simvastatin 40 mg PO DAILY 06/28/20 06/28/20 06/28/20 History Allergies Allergy/AdvReac Type Severity Reaction Status Date / Time No Known Allergies Allergy Verified 06/28/20 12:20 Current Medications Current Medications Generic Name Dose Route Start Last Admin Trade Name Freq PRN Reason Stop Dose Admin Acetaminophen 650 mg 06/28/20 20:19 06/28/20 21:04 Tylenol OK 650 mg Q4H PRN Administration MILD PAIN OR INCREASE TEMP Enoxaparin Sodium 40 mg 06/28/20 19:00 06/28/20 20:04 Lovenox SUBCUT 40 mg Q24H TWILA Administration Sodium Chloride 1,000 mls @ 75 mls/hr 06/28/20 18:15 06/28/20 23:00 Sodium Chloride 0.9% IV 75 mls/hr .[id number] TWILA Infusion Ceftriaxone Sodium 2,000 mg/ 50 mls @ 100 mls/hr 06/28/20 19:00 06/29/20 08:40 Sodium Chloride IV 100 mls/hr Q12H TWILA Administration Protocol Vancomycin HCl 1,500 mg/ 250 mls @ 250 mls/hr 06/28/20 23:00 06/29/20 12:11 Sodium Chloride IV Infused Q18H TWILA Infusion Protocol As Directed Acyclovir 1,090 mg/ Sodium 121.8 mls @ 110 mls/hr 06/28/20 22:30 06/29/20 10:04 Chloride IV 110 mls/hr Q8H TWILA Administration Insulin Aspart 0 unit 06/28/20 21:00 06/29/20 11:57 Novolog SUBCUT Not Given WM&BEDTIME TWILA Protocol PFSH Acute PFSH: Medical History (Updated 06/29/20 @ 15:49 by Jono Taylor MD) Coronary artery disease Diabetes Hydronephrosis, left Hyperlipidemia Urinary retention Vitals/I&O/Wt Last Vital Signs Temp 98.8 F 06/29/20 12:00 Pulse 84 06/29/20 12:00 Resp 16 06/29/20 12:00 BP 126/63 06/29/20 12:00 Pulse Ox 97 06/29/20 12:00 06/29/20 06/29/20 06/29/20 06:59 14:59 22:59 Intake Total 1121.8 / 1768.05 250 / 250 Output Total 950 / 2200 Balance 171.8 / -431.95 250 / 250 Weight last 48 hrs Weight 240 lb 11.2 oz Weight 240 lb 11.2 oz Physical Exam Const: COMMON NORMALS: no acute distress, alert and well nourished GENERAL APPEARANCE: well kempt and well developed HENMT: COMMON NORMALS: normocephalic and atraumatic HEAD & SCALP: normocephalic and atraumatic Neck/C-Spine: COMMON NORMALS: full ROM Resp: COMMON NORMALS: normal respiratory effort EFFORT & INSPECTION: No labored and No Actively coughing Extremity: COMMON NORMALS: no clubbing, cyanosis or edema Neuro: COMMON NORMALS: no focal motor deficits SENSORIUM/ORIENTATION: Yes alert Psych: COMMON NORMALS: mental status grossly normal APPEARANCE: Yes grossly normal and Yes well kempt ATTITUDE: Yes calm and Yes engaged Skin: COMMON NORMALS: no rashes or lesions noted GENERAL SKIN EXAM: no rashes or lesions noted Urinary Catheter Management^: Reed: Cath Placed During This Visit: yes Reason for Continuing Indwelling Catheter: Acute Urinary Retention or Obstruction Urinary Catheter Date of Insertion: 06/28/20 Urinary Catheter Time of Insertion: 22:00 Data Micro: Micro: Microbiology 06/28/20 13:55 Blood Culture - Pr eliminary Blood NEGATIVE TO YURI E 06/28/20 11:54 Blood Culture - Pr eliminary Blood NEGATIVE TO YURI E A&P Assessment and plan (1) Hydronephrosis, left: Etiology unclear. Does not appear to be an acute process given the left renal atrophy. No obvious inflammatory changes around the kidney suggestive of pyelonephritis or acute obstruction. In the absence of obstructive pyelonephritis clinical picture I would hold on placing a stent but I do think this needs to be further worked up as his condition improves. If in fact he has significant clinical deterioration or development of evidence pointing to a urinary source of infection I can place a stent at any time. I will review with Dr. Mcgill Status: Acute (2) Urinary retention: About 1200 cc drained from the bladder. Status: Acute (3) Sepsis: Status: Acute Consult Attestations Medical Necessity Statement: See attending Coding Level of Care Code Acute Factory Representative for [facility] Diagnoses Hydronephrosis, left N13.30 Urinary retention R33.9 Sepsis A41.9
[2020-06-29 15:59] VITALS: BP 117/69; PULSE 91; RESP 16; TEMP 36.7; O2SAT 96
[2020-06-29 16:00] VITALS: BP 117/69; PULSE 91; RESP 16; TEMP 36.7
[2020-06-29] MEDS: sodium chloride 0.9% 1,000 ML 75 ML IV (16:25)
--- NOTE | 2020-06-29 16:26 | PM.PN ---
Subjective Subjective: Interval history: overnight tmax 102.7F, mental status much improved today, able to converse in few short sentences, states he was brought to the hospital for abdominal pain and diarrhea. US abdomen withotu any further information on hydronpehrosis Medications: Reviewed: Yes Vitals/I&O/Wt Last Vital Signs Temp 98.1 F 06/29/20 15:59 Pulse 91 06/29/20 15:59 Resp 16 06/29/20 15:59 BP 117/69 06/29/20 15:59 Pulse Ox 96 06/29/20 15:59 06/29/20 06/29/20 06/29/20 06:59 14:59 22:59 Intake Total 1121.8 / 1768.05 1153.75 / 1153.75 50 / 1203.75 Output Total 950 / 2200 Balance 171.8 / -431.95 1153.75 / 1153.75 50 / 1203.75 Weight last 48 hrs Weight 109.18 kg Weight 109.18 kg Physical Exam Narrative: EXAM NARRATIVE: GEN: Awake, alert, needs frequent reorientation, mentation improved over yesetrday CVS: S1S2 N RS: CTA B/L Abd: Soft, nt/nd , bs+ CONSUMER EDUCATION SPECIALIST: moving all extremities in bed Urinary Catheter Management^: Reed: Cath Placed During This Visit: yes Reason for Continuing Indwelling Catheter: Acute Urinary Retention or Obstruction Urinary Catheter Date of Insertion: 06/28/20 Urinary Catheter Time of Insertion: 22:00 Data : 06/29/20 05:00 06/29/20 05:00 Micro: Microbiology 06/28/20 13:55 Blood Culture - Preliminary Blood NEGATIVE TO DATE 06/28/20 11:54 Blood Culture - Preliminary Blood NEGATIVE TO DATE A&P Assessment and plan (1) Sepsis: Status: Acute Qualifiers: Sepsis type: sepsis due to unspecified organism Sepsis acute organ dysfunction status: with acute organ dysfunction Severe sepsis acute organ dysfunction type: encephalopathy Severe sepsis shock status: without septic shock Qualified Code(s): A41.9 - Sepsis, unspecified organism; R65.20 - Severe sepsis without septic shock; G93.40 - Encephalopathy, unspecified (2) AMS (altered mental status): Status: Acute Qualifiers: Altered mental status type: unspecified Qualified Code(s): R41.82 - Altered mental status, unspecified (3) Hydronephrosis: Status: Inactive Qualifiers: Hydronephrosis type: unspecified Qualified Code(s): N13.30 - Unspecified hydronephrosis (4) Urinary retention: Status: Acute (5) Diabetes mellitus: Status: Acute Qualifiers: Diabetes mellitus type: type 2 Diabetes mellitus skilled nursing insulin use: without terminal clerk use Additional A&P Information # Sepsis : fever, elevated lactate and likely infectious source # AMS, improving today Suspect urinary source given urinary retention >1250ml upon insertion of Reed, however lack of positive findings on UA, CVA tenderness or acute derangement of renal function, unsure if obstructive pyelonephritis is the commercial driver's license driver here suspect methabolic encephalopathy as cause of AMS- Continue CONSUMER EDUCATION SPECIALIST dosing for CTX, vancomycin and acyclovir for now, cannot r/o meningitis urology consult with Dr. cochran blood cx pending , NGTD covid ag negative # dementia:unsure of baseline, attempting to recah son again today # DM: ISS , controlled currently Full code Dvt ppx: lovenox Attestations Medical Necessity Statement*: sepsis, source under evaluation, need for iv abx and hydration Coding Level of Care Code Acute Basket Grader for [facility] Fwd Diagnoses Sepsis A41.9; R65.20; G93.40 Sepsis type: sepsis due to unspecified organism Sepsis acute organ dysfunction status: with acute organ dysfunction Severe sepsis acute organ dysfunction type: encephalopathy Severe sepsis shock status: without septic shock AMS (altered mental status) R41.82 Altered mental status type: unspecified Hydronephrosis N13.30 Hydronephrosis type: unspecified Urinary retention R33.9 Diabetes mellitus E11.9 Diabetes mellitus type: type 2 Diabetes mellitus terminal clerk insulin use: without terminal clerk use
[2020-06-29 17:40] LABS: Glucose Point of Care 124 mg/dL (70-110)
--- NOTE | 2020-06-29 17:49 | PC.NURSE ---
Patient had c/o discomfort at the IV site to left AC per KADIE Cox. IV was flushed with 10 mL NS and flushed without issue. IV is patent. Dressing is notably dislodged, dressing changed following aseptic technique with venaguard and foam tape. Patient tolerated procedure well with no complications. I provided education to patient's son that if the patient began experiencing more discomfort or attempting to remove IV, to utilize the call light and we would reinforce with coban and tape. He verbalizes understanding.
--- NOTE | 2020-06-29 18:19 | US_ITS ---
WS: [id number] EXAM: RENAL SONOGRAM DATE OF EXAMINATION: 06/29/2020, 0550 hours COMPARISON: CT of the abdomen and pelvis from 06/28/2020 HISTORY: Left hydronephrosis seen on recent CT examination. Unable to see the distal ureter secondary to strea k artifact from hip hardware. FINDINGS: The right kidney is 9.7 x 7.3 x 5.62 cm in size. 2 cysts are demonstrated. Each appear fairly benign in appearance. The first about 2.9 cm in maximum dimension the second about 2.6 cm in maximal dimensi on. No solid mass lesion or obstructive uropathy. Left kidney is estimated at 14.6 x 9.6 x 6.9 cm in size. There are slight cortical thinning. There ar e findings of hydronephrosis demonstrated Reed ends in the bladder. A definite stone in the pelvis a djacent to the bladder is not seen. Would recommend correlation with abdominal KUB since the CT was p erformed with IV contrast to check for late excretion to possibly see a stone in this region in the p irma. US/US renal BI with bladder IMPRESSION: Left hydronephrosis. Reed decompresses the bladder. No definite stone seen terry und the left side of the bladder. Right kidney with 2 cysts. No obstructive uropathy on the right.
[2020-06-29] MEDS: enoxaparin 40 mg/0.4 mL Syringe SUBCUT (18:41)
--- NOTE | 2020-06-29 19:17 | PC.NURSE ---
TRANSFER TO BED FROM CHAIR Ready to return to bed at shift change. Took max assist of 2 to transfer. Is quite unsteady and gets legs crossed up
[2020-06-29 20:00] VITALS: BP 129/63; PULSE 89; RESP 18; TEMP 37.1; O2SAT 97
[2020-06-29] MEDS: acyclovir 1,000 MG in sodium chloride 0.9% (100 ml) 100 ML 110 MG IV (20:00)
[2020-06-29] MEDS: ropinirole 1 mg Tablet PO (21:12)
[2020-06-29 21:27] LABS: Glucose Point of Care 147 mg/dL (70-110)
[2020-06-30] VITALS: BP 125/70; PULSE 73; RESP 18; TEMP 36.6; O2SAT 96
[2020-06-30] MEDS: acyclovir 1,000 MG in sodium chloride 0.9% (100 ml) 100 ML 110 MG IV ×2 (03:21→11:41)
[2020-06-30 03:45] LABS: Basophils % 0.3 %; Eosinophils # 0.1 10^3/uL (0.0-0.8); Eosinophils % 3.6 %; Hematocrit 33.8 % (42.0-52.0); Hemoglobin 10.5 g/dL (11.7-16.6); Lymphocytes # 0.9 10^3/uL (0.8-4.8); Lymphocytes % 29.3 %; Mean Corpuscular HGB Conc 31.1 g/dL (30.0-36.0); Mean Corpuscular Hemoglobin 31.6 pg (28.0-34.0); Mean Corpuscular Volume 101.8 fL (80-94); Mean Platelet Volume 10.6 fL (7.4-10.4); Monocytes # 0.3 10^3/uL (0.2-0.9); Monocytes % 8.5 %; Neutrophils # 1.78 10^3/uL (1.8-7.7); Nucleated Red Blood Cells % 0 %; Platelet Count 89 10^3/cmm (130-400); Red Blood Count 3.32 10^6/uL (4.1-5.3); Red Cell Distribution Width 14.6 % (12.1-15.1); White Blood Count 3.1 10^3/uL (4.0-10.0)
[2020-06-30] MEDS: acetaminophen 325 mg Tablet 650 MG PO (03:54)
[2020-06-30 04:00] VITALS: BP 148/67; PULSE 74; RESP 18; TEMP 36.6; O2SAT 98
[2020-06-30 04:00] LABS: Alanine Aminotransferase 24 U/L (0-41); Albumin Level 3.5 g/dL (3.5-5.2); Alkaline Phosphatase 66 IU/L (40-130); Anion Gap 13.8 (5-19); Aspartate Amino Transferase 38 U/L (0-40); Blood Urea Nitrogen 19 mg/dL (8-23); Calcium 8.6 mg/dL (8.5-10.5); Carbon Dioxide 23 mmol/L (22-29); Chloride 103 mmol/L (98-107); Globulin 2.8 g/dL (1.3-4.6); Glucose 115 mg/dL (65-115); Osmolality Calculated 279 mOsm/kg (285-295); Potassium 3.8 mmol/L (3.5-5.1); Sodium 136 mmol/L (136-145); Total Bilirubin 0.3 mg/dL (0.15-1.2); Total Protein 6.3 g/dL (6.6-8.7)
[2020-06-30 06:57] LABS: Glucose Point of Care 105 mg/dL (70-110)
[2020-06-30 07:38] VITALS: BP 136/56; PULSE 78; RESP 18; TEMP 36.4; O2SAT 97
[2020-06-30] MEDS: cefTRIAXone 2,000 MG in sodium chloride 0.9% (plus) 50 ML 100 MG IV (08:19)
[2020-06-30] MEDS: sodium chloride 0.9% 1,000 ML 75 ML IV (08:19)
[2020-06-30] MEDS: pantoprazole DR 40 mg Tablet PO (08:19)
[2020-06-30] MEDS: donepezil 5 MG Tablet 10 MG PO (08:19)
[2020-06-30] MEDS: PARoxetine 20 mg Tablet 30 MG PO (08:20)
[2020-06-30] MEDS: atorvastatin 40 mg Tablet 20 MG PO (08:20)
[2020-06-30 09:35] LABS: Specific Gravity, Urine 1.015 (1.005-1.030); Urine Appearance Clear (CLEAR); Urine Color Yellow (Yellow); pH Urine 5 (5-7)
[2020-06-30 09:36] LABS: Add Urine Culture? No; Add Urine Microscopic? YES; Bacteria Urine TRACE; Bilirubin Urine Neg (NEGATIVE); Blood Urine 2+ (Negative); Coarse Granular Casts Urine 0-4 /lpf; Glucose Urine UA Norm (Normal); Ketones Urine 1+ (Negative); Leukocyte Esterase Urine Negative (Negative); Mucus Urine TRACE; Nitrate Urine Negative (Negative); Protein Urine Neg (Negative); Squamous Epithelial Cell Urine 0-4 (0-5); Urobilinogen Urine Norm (Negative); WBC Urine 0-4 /hpf (0-5)
[2020-06-30 11:40] VITALS: BP 127/75; PULSE 77; RESP 18; TEMP 36.4; O2SAT 96
[2020-06-30 11:44] LABS: Glucose Point of Care 181 mg/dL (70-110)
[2020-06-30 15:41] VITALS: BP 130/77; PULSE 79; RESP 18; TEMP 36.5; O2SAT 98
--- NOTE | 2020-06-30 16:11 | P.PN_ITS ---
Subjective Subjective: Interval history: Appears significantly improved today. Mentation is better. He is able to correctly tell me his name, name of his son, his 2 weeks ago which is accurate, tells me his son and moved down from [place] to take care of him which is also accurate. He also has a negative nitrate, however does not tell me his correct date of . Thinks he is in [place] but with reorientation notes that he is in [place]. Medications: Reviewed: Yes Vitals/I&O/Wt Last Vital Signs Temp 97.7 F 06/30/20 15:41 Pulse 79 06/30/20 15:41 Resp 18 06/30/20 15:41 BP 130/77 06/30/20 15:41 Pulse Ox 98 06/30/20 15:41 06/30/20 06/30/20 06/30/20 06:59 14:59 22:59 Intake Total 1270 / 3353.75 720 / 720 Output Total 750 / 1700 Balance 520 / 1653.75 720 / 720 Weight last 48 hrs Weight 109.18 kg Weight 109.18 kg Physical Exam Narrative: EXAM NARRATIVE: GEN: Awake, alert, needs reoriemtation but othe rwise mentation improving, less lethargic today CVS: S1S2 N RS: CTA B/L Abd: Soft, nt/nd , bs+ BENZENE WORKER: no focal neuro deficits : Reed in place Urinary Catheter Management^: Reed: Cath Placed During This Visit: yes Reason for Continuing Indwelling Catheter: Acute Urinary Retention or Obstruction Urinary Catheter Date of Insertion: 06/28/20 Urinary Catheter Time of Insertion: 22:00 Data : 06/30/20 03:17 06/30/20 03:17 Micro: Microbiology 06/28/20 14:15 Urine Culture - Final Urine,Clean Catch 06/28/20 13:55 Blood Culture - Preliminary Blood NEGATIVE TO DATE 06/28/20 11:54 Blood Culture - Preliminary Blood NEGATIVE TO DATE A&P Assessment and plan (1) Sepsis: Status: Acute Qualifiers: Sepsis type: sepsis due to unspecified organism Sepsis acute organ dy sfunction status: with acute organ dysfunction Severe sepsis acute organ d ysfunction type: encephalopathy Severe sepsis shock status: without septic shock Qualified Code(s): A41.9 - Sepsis, unspecified organism; R65.20 - Severe sepsis without septic shock; G93.40 - Encephalopathy, unspecified (2) AMS (altered mental status): Status: Acute Qualifiers: Altered mental status type: unspecified Qualified Code(s): R41.82 - Altered mental status, unspecified (3) Hydronephrosis: Status: Inactive Qualifiers: Hydronephrosis type: unspecified Qualified Code(s): N13.30 - Unspecified hydronephrosis (4) Urinary retention: Status: Acute (5) Diabetes mellitus: Status: Acute Qualifiers: Diabetes mellitus type: type 2 Diabetes mellitus long term care pharmacist insulin use: without residential use Additional A&P Information # Sepsis : fever, elevated lactate and likely infectious source # AMS, not significantly improving. Noted the patient developing some degree of pancytopenia. WBC down to 3.1 platelets at 89. No one infectious source clearly discernible at this time. Differentials include urinary source given urinary retention >1250ml upon insertion of Reed and left hydronephrosis, however lack of positive findings on UA, CVA tenderness or acute derangement of renal function, unsure if obstructive pyelonephritis is the bung driver here. Appreciate Dr. Taylor's recommendations, left hydronephrosis apppears to be a more chronic process and will need further w/up as outpatient. urine cx with multiple small colonies, likely contaminants. Other possibilities include tick borne illnesses. meningitis appears to be less likely given improvement in mentation in less than 24hrs. Suspect methabolic encephalopathy was the cause of AMS. Deescalate abx today to Ceftriaxone 1g iv q24h, d/c vancomycin and acyclovir, start doxycycline and monitor closely for any clinical changes. blood cx negative to date covid ag negative CT abdomen with hydronpehrosis but no other acute findings CXR with clear lungs # dementia: mentation improving. # DM: ISS , controlled currently Full code Dvt ppx: lovenox Attestations Medical Necessity Statement*: de escalate abx, monitor closely with change Coding Level of Care Code Acute Production Analyst for [facility] Fwd Diagnoses Sepsis A41.9; R65.20; G93.40 Sepsis type: sepsis due to unspecified organism Sepsis acute organ dysfunction status: with acute organ dysfunction Severe sepsis acute organ dysfunction type: encephalopathy Severe sepsis shock status: without septic shock AMS (altered mental status) R41.82 Altered mental status type: unspecified Hydronephrosis N13.30 Hydronephrosis type: unspecified Urinary retention R33.9 Diabetes mellitus E11.9 Diabetes mellitus type: type 2 Diabetes mellitus long term care pharmacist insulin use: without residential use
[2020-06-30 16:46] LABS: Glucose Point of Care 184 mg/dL (70-110)
[2020-06-30] MEDS: doxycycline 100 mg Tablet PO (17:42)
[2020-06-30] MEDS: enoxaparin 40 mg/0.4 mL Syringe SUBCUT (17:43)
--- NOTE | 2020-06-30 18:15 | PC.NURSE ---
SHIFT SUMMARY PATIENT HAS DONE WELL TODAY. BEEN UP IN THE CHAIR MOST OF THE DAY. PATIENT HAD 1300ML OF URINE OUTPUT. GOOD PO INTAKE. PATIENT BECOMING MORE ALERT THROUGHOUT THE DAY.
[2020-06-30 19:29] VITALS: BP 156/71; PULSE 74; RESP 20; TEMP 37; O2SAT 98
[2020-06-30 20:45] LABS: Glucose Point of Care 158 mg/dL (70-110)
[2020-06-30] MEDS: ropinirole 1 mg Tablet PO (20:52)
[2020-07-01] VITALS (7 sets, daily range): BP systolic 138–177; BP diastolic 62–81; PULSE 63–72; RESP 18–20; TEMP 36.4–36.9; O2SAT 97–99
[2020-07-01 04:57] LABS: Basophils % 0.3 %; Eosinophils # 0.3 10^3/uL (0.0-0.8); Eosinophils % 8.4 %; Hemoglobin 10.5 g/dL (11.7-16.6); Lymphocytes # 1.1 10^3/uL (0.8-4.8); Lymphocytes % 38.2 %; Mean Corpuscular HGB Conc 32.8 g/dL (30.0-36.0); Mean Corpuscular Hemoglobin 33.1 pg (28.0-34.0); Mean Corpuscular Volume 100.9 fL (80-94); Mean Platelet Volume 10.6 fL (7.4-10.4); Monocytes # 0.2 10^3/uL (0.2-0.9); Monocytes % 8.1 %; Neutrophils # 1.32 10^3/uL (1.8-7.7); Neutrophils % 44.7 %; Nucleated Red Blood Cells % 0 %; Platelet Count 96 10^3/cmm (130-400); Red Blood Count 3.17 10^6/uL (4.1-5.3); Red Cell Distribution Width 14.3 % (12.1-15.1)
[2020-07-01 05:23] LABS: Alanine Aminotransferase 23 U/L (0-41); Albumin Level 3.3 g/dL (3.5-5.2); Alkaline Phosphatase 80 IU/L (40-130); Anion Gap 12.8 (5-19); Aspartate Amino Transferase 32 U/L (0-40); Blood Urea Nitrogen 18 mg/dL (8-23); Calcium 8.4 mg/dL (8.5-10.5); Carbon Dioxide 23 mmol/L (22-29); Chloride 105 mmol/L (98-107); Globulin 2.8 g/dL (1.3-4.6); Glucose 144 mg/dL (65-115); Osmolality Calculated 283 mOsm/kg (285-295); Potassium 3.8 mmol/L (3.5-5.1); Sodium 137 mmol/L (136-145); Total Bilirubin 0.3 mg/dL (0.15-1.2); Total Protein 6.1 g/dL (6.6-8.7)
--- NOTE | 2020-07-01 05:23 | PC.NURSE ---
SHIFT SUMMARY Has rested well. Confused but cooperative. Occ takes off O2 but otherwise doing well. Not trying to get OOB tonight. Has had 1:1 sitter at bedside. Going to try today without sitter and see how pt does. Good urine output from Reed. IV infusing at 50ml/hr rate.
[2020-07-01 06:39] LABS: Glucose Point of Care 131 mg/dL (70-110)
[2020-07-01] MEDS: cefTRIAXone 1,000 MG in sodium chloride 0.9% (plus) 50 ML 100 MG IV (07:20)
[2020-07-01] MEDS: sodium chloride 0.9% 1,000 ML 75 ML IV (07:20)
[2020-07-01] MEDS: donepezil 5 MG Tablet 10 MG PO (07:21)
[2020-07-01] MEDS: doxycycline 100 mg Tablet PO ×2 (07:21→17:12)
[2020-07-01] MEDS: pantoprazole DR 40 mg Tablet PO (07:21)
[2020-07-01] MEDS: atorvastatin 40 mg Tablet 20 MG PO (07:21)
[2020-07-01] MEDS: PARoxetine 20 mg Tablet 30 MG PO (07:21)
[2020-07-01 10:40] LABS: Glucose Point of Care 198 mg/dL (70-110)
--- NOTE | 2020-07-01 12:25 | PC.SOCIAL ---
IMM completed 07/01/2020 @ 1013. Explained rights and copy of rights given to pt.
--- NOTE | 2020-07-01 16:38 | P.PN_ITS ---
Subjective Subjective: Interval history: no acute events, improving mentation, no further fever, per son at bedside, he feels his dad i still not back at baseline. Stable pancytopenia. Medications: Reviewed: Yes Vitals/I&O/Wt Last Vital Signs Temp 98.5 F 07/01/20 15:51 Pulse 70 07/01/20 15:51 Resp 18 07/01/20 15:51 BP 138/73 07/01/20 15:51 Pulse Ox 98 07/01/20 15:51 07/01/20 07/01/20 07/01/20 06:59 14:59 22:59 Intake Total 150 / 2090 600 / 600 Output Total 1450 / 2650 1000 / 1000 1000 / 2000 Balance -1300 / -560 -400 / -400 -1000 / -1400 Physical Exam Narrative: EXAM NARRATIVE: GEN: Awake, alert and oriented, no acute distress CVS: S1S2 N RS: CTA B/L Abd: Soft, nt/nd , bs+ SUSTAINABILITY PROJECT COORDINATOR: no focal neuro deficits Urinary Catheter Management^: Reed: Cath Placed During This Visit: yes Reason for Continuing Indwelling Catheter: Acute Urinary Retention or Obstruction Urinary Catheter Date of Insertion: 06/28/20 Urinary Catheter Time of Insertion: 22:00 Data : 07/01/20 04:05 07/01/20 04:05 A&P Assessment and plan (1) Sepsis: Status: Acute Qualifiers: Sepsis type: sepsis due to unspecified organism Sepsis acute organ dysfunction status: with acute organ dysfunction Severe sepsis acute organ dysf unction type: encephalopathy Severe sepsis shock status: without septic shock Qualified Code(s): A41.9 - Sepsis, unspecified organism; R65.20 - Severe sepsis without septic shock; G93.40 - Encephalopathy, unspecified (2) AMS (altered mental status): Status: Acute Qualifiers: Altered mental status type: unspecified Qualified Code(s): R41.82 - Altered mental status, unspecified (3) Hydronephrosis: Status: Inactive Qualifiers: Hydronephrosis type: unspecified Qualified Code(s): N13.30 - Unspecified hydronephrosis (4) Urinary retention: Status: Acute (5) Diabetes mellitus: Status: Acute Qualifiers: Diabetes mellitus type: type 2 Diabetes mellitus mcc insulin use: without mcc use Additional A&P Information # Sepsis : resolving # AMS, Now much improved Able to correctly tell me name, place, age, , son's name, 's passing 2 weeks ago, his and son's occupation. kids' names etc, tolerating po intake. Noted the patient developing some degree of pancytopenia. No one infectious source clearly discernible at this time. Differentials include urinary source given urinary retention >1250ml upon insertion of Reed and left hydronephrosis, however lack of positive findings on UA, CVA tenderness or acute derangement of renal function, unsure if obstructive pyelonephritis is the route relief driver here. Appreciate Dr. Taylor's recommendations, left hydronephrosis apppears to be a more chronic process and will need further w/up as outpatient. urine cx with multiple small colonies, likely contaminants. Other possibilities include tick borne illnesses. meningitis appears to be less likely given improvement in mentation in less than 24hrs. Suspect methabolic encephalopathy was the cause of AMS. Abx de escalated to Ceftriaxone 1g iv q24h, and doxycycline. tick panel pending blood cx negative to date covid ag negative CT abdomen with hydronpehrosis but no other acute findings CXR with clear lungs # dementia: mentation improving, however per son still not back at recent baseline. May need LP if persisting concern. Unable to get IR procedures over the weekend. Low suspicion for now # DM: ISS , controlled currently Full code Dvt ppx: lovenox Attestations Medical Necessity Statement*: improving sepsis, monitor mental status closely with de escalation of abx Coding Level of Care Code Acute Radiation Monitor for [facility] Fwd Diagnoses Sepsis A41.9; R65.20; G93.40 Sepsis type: sepsis due to unspecified organism Sepsis acute organ dysfunction status: with acute organ dysfunction Severe sepsis acute organ dysfunction type: encephalopathy Severe sepsis shock status: without septic shock AMS (altered mental status) R41.82 Altered mental status type: unspecified Hydronephrosis N13.30 Hydronephrosis type: unspecified Urinary retention R33.9 Diabetes mellitus E11.9 Diabetes mellitus type: type 2 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
[2020-07-01 16:46] LABS: Glucose Point of Care 188 mg/dL (70-110)
[2020-07-01] MEDS: enoxaparin 40 mg/0.4 mL Syringe SUBCUT (17:12)
--- NOTE | 2020-07-01 17:55 | PC.NURSE ---
SHIFT SUMMARY PATIENT HAS DONE WELL TODAY. HE HAS BEEN MORE ALERT. STILL HAS A FEW MOMENTS OF CONFUSION. GOOD PO INTAKE AND URINE OUTPUT. NO PAIN. NO COMPLAINTS AT THIS TIME.
[2020-07-01 19:40] LABS: Glucose Point of Care 186 mg/dL (70-110)
[2020-07-01] MEDS: ropinirole 1 mg Tablet PO (21:28)
[2020-07-02 03:45] VITALS: BP 154/76; PULSE 51; RESP 16; TEMP 36.3; O2SAT 96
[2020-07-02 04:31] LABS: Basophils % 0.6 %; Eosinophils # 0.3 10^3/uL (0.0-0.8); Eosinophils % 8.9 %; Hematocrit 34.7 % (42.0-52.0); Hemoglobin 11.2 g/dL (11.7-16.6); Lymphocytes # 1.4 10^3/uL (0.8-4.8); Lymphocytes % 39.8 %; Mean Corpuscular HGB Conc 32.3 g/dL (30.0-36.0); Mean Corpuscular Hemoglobin 31.9 pg (28.0-34.0); Mean Corpuscular Volume 98.9 fL (80-94); Mean Platelet Volume 10.7 fL (7.4-10.4); Monocytes # 0.2 10^3/uL (0.2-0.9); Monocytes % 6.4 %; Neutrophils # 1.58 10^3/uL (1.8-7.7); Nucleated Red Blood Cells % 0 %; Platelet Count 131 10^3/cmm (130-400); Red Blood Count 3.51 10^6/uL (4.1-5.3); Red Cell Distribution Width 14.1 % (12.1-15.1); White Blood Count 3.6 10^3/uL (4.0-10.0)
[2020-07-02 04:43] LABS: Alanine Aminotransferase 29 U/L (0-41); Albumin Level 3.5 g/dL (3.5-5.2); Alkaline Phosphatase 114 IU/L (40-130); Anion Gap 12.8 (5-19); Aspartate Amino Transferase 39 U/L (0-40); Blood Urea Nitrogen 19 mg/dL (8-23); Calcium 8.7 mg/dL (8.5-10.5); Carbon Dioxide 24 mmol/L (22-29); Chloride 104 mmol/L (98-107); Glucose 163 mg/dL (65-115); Osmolality Calculated 284 mOsm/kg (285-295); Potassium 3.8 mmol/L (3.5-5.1); Sodium 137 mmol/L (136-145); Total Bilirubin 0.3 mg/dL (0.15-1.2); Total Protein 6.5 g/dL (6.6-8.7)
--- NOTE | 2020-07-02 06:12 | PC.NURSE ---
SHIFT SUMMARY Patient had a shower before bed and has rested well all night. Good output and no complaints of pain.
[2020-07-02 06:22] LABS: Glucose Point of Care 149 mg/dL (70-110)
[2020-07-02 07:37] VITALS: BP 148/80; PULSE 69; RESP 18; TEMP 36.5; O2SAT 95
[2020-07-02] MEDS: cefTRIAXone 1,000 MG in sodium chloride 0.9% (plus) 50 ML 100 MG IV (08:55)
[2020-07-02] MEDS: PARoxetine 20 mg Tablet 30 MG PO (08:57)
[2020-07-02] MEDS: donepezil 5 MG Tablet 10 MG PO (08:58)
[2020-07-02] MEDS: pantoprazole DR 40 mg Tablet PO (09:02)
[2020-07-02] MEDS: doxycycline 100 mg Tablet PO ×2 (09:02→18:20)
[2020-07-02] MEDS: atorvastatin 40 mg Tablet 20 MG PO (09:03)
[2020-07-02 10:51] LABS: Glucose Point of Care 266 mg/dL (70-110)
--- NOTE | 2020-07-02 11:11 | FL_ITS ---
WS: [id number] LUMBAR PUNCTURE CLINICAL INFORMATION: ams Fluoroscopy time 0.2 minutes COMPARISON: None. TECHNIQUE: Informed consent: The procedure and its potential risk and complications were discussed with the néstor ent. Verbal and written consent was obtained. Timeout: A timeout was performed to confirm correct patient, procedure, and site. Patient was prepped and draped in the usual sterile fashion. Lidocaine 1% was used for local anesthes ia. Utilizing fluoroscopic guidance, a 3.5 inch 22-gauge spinal needle was advanced into the subarach noid space at L3-L4 via right oblique sublaminar approach. Free flow of clear CSF was obtained. 10 cc of CSF was collected and sent the lab for further analysis. FLUOROSCOPIC TIME: 0.2 minutes. FL/FL guided lumbarpunc dx* [id number] IMPRESSION: Fluoroscopically guided lumbar puncture. No immediate complications
[2020-07-02 11:28] VITALS: BP 156/83; PULSE 72; RESP 18; TEMP 36.7; O2SAT 94
--- NOTE | 2020-07-02 11:54 | PM.PN ---
Subjective Subjective: Interval history: This morning patient was examined, he was lying in bed, Reed catheter still in place, he is alert and oriented x2, does not know the president [employer], does not know the year, he does not know his age, states that he is 78, but is 80, he tells me his 2 months ago, does not know why she , tells me that he has 3 sons, gets other questions appropriately, but does deftly has persistent confusion, no neck pain, no neck stiffness, no fevers, chills, patient actually does not have any significant complaints, does not know why he still here in the hospital, has ambulated without any significant difficulty, no neck pain, no neck stiffness. He tells me that he used to work in [employer], he is retired, [place], his was a primary homemaker, she unfortunately suddenly 2 months ago, it is been difficult to cope, he does state that he is depressed, his son tells me that his primary care physician has been trying medication for depression, but none seem to work, does state that he has anxious episodes, denies thoughts of hurting himself, denies thoughts of hurting others, denies seeing or hearing things that are not there I spoke to patient son over the phone, patient has 3 sons, patient son is concerned about his change in his mentation, but they have been concerned about depression as a possible etiology, given his 's sudden passing, he does have a history of dementia, but patient's family is concerned for infectious etiologies, and want a lumbar puncture to be performed, advised the risk and benefits, voiced understanding, all questions answered, agreed to proceed Medications: Reviewed: Yes Vitals/I&O/Wt Last Vital Signs Temp 98.1 F 07/02/20 11:28 Pulse 72 07/02/20 11:28 Resp 18 07/02/20 11:28 BP 156/83 07/02/20 11:28 Pulse Ox 94 07/02/20 11:28 07/01/20 07/02/20 07/02/20 22:59 06:59 14:59 Intake Total 480 / 480 Output Total 1000 / 2000 1200 / 3200 650 / 650 Balance -1000 / -1350 -1200 / -2550 -170 / -170 Physical Exam Const: COMMON NORMALS: no acute distress and alert HENMT: COMMON NORMALS: normocephalic HEAD & SCALP: normocephalic Neck/C-Spine: COMMON NORMALS: no JVD Resp: COMMON NORMALS: normal respiratory effort, No retractions, No use of accessory muscles and clear to auscultation bilaterally AUSCULTATION: clear to auscultation bilaterally Cardio: COMMON NORMALS: no JVD, regular rate, regular rhythm, S1 normal heart sound present and S2 normal heart sound present RATE: regular rate RHYTHM: regular rhythm HEART SOUNDS: S1 normal heart sound present and S2 normal heart sound present GI: COMMON NORMALS: Normal to inspection, nondistended, normoactive bowel sounds present, Soft to palpation, non-tender, No hepatosplenomegaly present, no masses and no bruits PALPATION: Yes Soft to palpation and Yes No hepatosplenomegaly present Extremity: COMMON NORMALS: capillary refill normal, no clubbing, cyanosis or edema, no calf tenderness and no pedal edema Neuro: SENSORIUM/ORIENTATION: Yes alert Psych: ATTITUDE: Yes calm ACTIVITY/MOTOR BEHAVIOR: Yes appropriate eye contact MOOD & AFFECT: Yes depressed mood THOUGHT CONTENT: Yes Normal thought content present, No Suicidality present and No Homicidality present ATTENTION/CONCENTRATION: Yes attention grossly impaired MEMORY/COGNITION: Yes memory grossly impaired Urinary Catheter Management^: Reed: Cath Placed During This Visit: yes, but has since been removed by the nurse Reason for Continuing Indwelling Catheter: Decision to DC Catheter Urinary Catheter Date of Insertion: 06/28/20 Urinary Catheter Time of Insertion: 22:00 Date Urinary Catheter Removed: 07/02/20 Time Urinary Catheter Discontinued: 10:00 Data : 07/02/20 03:52 07/02/20 03:52 A&P Assessment and plan (1) Sepsis: Status: Acute Qualifiers: Sepsis type: sepsis due to unspecified organism Sepsis acute organ dysfunction status: with acute organ dysfunction Severe sepsis acute organ dysfunction type: encephalopathy Severe sepsis shock status: without septic shock Qualified Code(s): A41.9 - Sepsis, unspecified organism; R65.20 - Severe sepsis without septic shock; G93.40 - Encephalopathy, unspecified (2) AMS (altered mental status): Status: Acute Qualifiers: Altered mental status type: unspecified Qualified Code(s): R41.82 - Altered mental status, unspecified (3) Hydronephrosis: Status: Inactive Qualifiers: Hydronephrosis type: unspecified Qualified Code(s): N13.30 - Unspecified hydronephrosis (4) Urinary retention: Status: Acute (5) Diabetes mellitus: Status: Acute Qualifiers: Diabetes mellitus type: type 2 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 kids' names etc, tolerating po intake. Noted the patient developing some degree of pancytopenia. No one infectious source clearly discernible at this time. Differentials include urinary source given urinary retention >1250ml upon insertion of Reed and left hydronephrosis, however lack of positive findings on UA, CVA tenderness or acute derangement of renal function, unsure if obstructive pyelonephritis is the transfer driver here. Appreciate Dr. Taylor's recommendations, left hydronephrosis apppears to be a more chronic process and will need further w/up as outpatient. urine cx with multiple small colonies, likely contaminants. Other possibilities include tick borne illnesses. meningitis appears to be less likely given improvement in mentation in less than 24hrs. Suspect methabolic encephalopathy was the cause of AMS. Abx de escalated to Ceftriaxone 1g iv q24h, and doxycycline. tick panel pending blood cx negative to date covid ag negative CT abdomen with hydronpehrosis but no other acute findings CXR with clear lungs plan on doing a lumbar puncture today # dementia: mentation improving, however per son still not back at recent baseline. May need LP if persisting concern. Unable to get IR procedures over the weekend. Low suspicion for now Atypical depression, psychiatry consulted # DM: ISS , controlled currently Full code Dvt ppx: lovenox Attestations Medical Necessity Statement*: Patient requires hospitalization for altered mental status,'s second infectious etiology versus dementia versus atypical depression, planning a preferring lumbar puncture today Coding Level of Care Code Acute Chief [employer] for [facility] F[facility] Diagnoses Sepsis A41.9; R65.20; G93.40 Sepsis type: sepsis due to unspecified organism Sepsis acute organ dysfunction status: with acute organ dysfunction Severe sepsis acute organ dysfunction type: encephalopathy Severe sepsis shock status: without septic shock AMS (altered mental status) R41.82 Altered mental status type: unspecified Hydronephrosis N13.30 Hydronephrosis type: unspecified Urinary retention R33.9 Diabetes mellitus E11.9 Diabetes mellitus type: type 2 Diabetes mellitus keno terminal operator insulin use: without keno terminal operator use
[2020-07-02 12:03] LABS: Lyme AB Screen <0.90 index
[2020-07-02 13:42] LABS: Mononuclear WBC CSF % 0 % (50-90); Polynuclear Cells ,CSF # 0.001 10^3/uL (0-10); Polynuclear WBC CSF % 100 % (0-10); Red Blood Cell CSF 0 10^3/uL (0-0); White Blood Cell CSF 1 /uL (0-5)
[2020-07-02 14:08] LABS: Glucose CSF 101 mg/dL (40-70); Total Protein CSF 62 mg/dL (15-45)
[2020-07-02 14:28] LABS: CSF Specific Gravity 1.006
[2020-07-02 14:40] LABS: Appearance CSF CLEAR (CLEAR); Color CSF COLORLESS (COLORLESS); Pathology Referral Yes
[2020-07-02 15:46] VITALS: BP 143/71; PULSE 64; RESP 18; TEMP 36.8; O2SAT 96
[2020-07-02 17:22] LABS: Glucose Point of Care 137 mg/dL (70-110)
[2020-07-02] MEDS: enoxaparin 40 mg/0.4 mL Syringe SUBCUT (18:21)
[2020-07-02 20:00] VITALS: BP 144/74; PULSE 66; RESP 16; TEMP 36.4; O2SAT 95
[2020-07-02 20:36] LABS: Glucose Point of Care 295 mg/dL (70-110)
[2020-07-02] MEDS: ropinirole 1 mg Tablet PO (21:51)
[2020-07-03] VITALS: BP 152/77; PULSE 66; RESP 16; TEMP 36.6; O2SAT 96
[2020-07-03 04:00] VITALS: BP 155/70; PULSE 64; RESP 16; TEMP 36.5; O2SAT 95
[2020-07-03 04:44] LABS: Basophils % 0.7 %; Eosinophils # 0.4 10^3/uL (0.0-0.8); Hematocrit 35.3 % (42.0-52.0); Hemoglobin 11.4 g/dL (11.7-16.6); Lymphocytes # 1.4 10^3/uL (0.8-4.8); Lymphocytes % 34.6 %; Mean Corpuscular HGB Conc 32.3 g/dL (30.0-36.0); Mean Corpuscular Hemoglobin 32.5 pg (28.0-34.0); Mean Corpuscular Volume 100.6 fL (80-94); Mean Platelet Volume 10.3 fL (7.4-10.4); Monocytes # 0.4 10^3/uL (0.2-0.9); Monocytes % 8.8 %; Neutrophils % 46.4 %; Nucleated Red Blood Cells % 0 %; Platelet Count 142 10^3/cmm (130-400); Red Blood Count 3.51 10^6/uL (4.1-5.3); Red Cell Distribution Width 14.1 % (12.1-15.1); White Blood Count 4.1 10^3/uL (4.0-10.0)
[2020-07-03 05:16] LABS: Alanine Aminotransferase 41 U/L (0-41); Albumin Level 3.7 g/dL (3.5-5.2); Alkaline Phosphatase 126 IU/L (40-130); Anion Gap 13.9 (5-19); Aspartate Amino Transferase 47 U/L (0-40); Blood Urea Nitrogen 20 mg/dL (8-23); C Reactive Protein 14.1 mg/L (0.0-4.9); Calcium 8.4 mg/dL (8.5-10.5); Carbon Dioxide 24 mmol/L (22-29); Chloride 104 mmol/L (98-107); Globulin 3.2 g/dL (1.3-4.6); Glucose 174 mg/dL (65-115); Magnesium 1.8 mg/dL (1.7-2.3); Osmolality Calculated 287 mOsm/kg (285-295); Potassium 3.9 mmol/L (3.5-5.1); Sodium 138 mmol/L (136-145); Total Bilirubin 0.4 mg/dL (0.15-1.2); Total Protein 6.9 g/dL (6.6-8.7)
[2020-07-03 06:40] LABS: Glucose Point of Care 191 mg/dL (70-110)
[2020-07-03 08:00] VITALS: BP 137/73; PULSE 60; RESP 18; TEMP 36.5; O2SAT 94
[2020-07-03] MEDS: atorvastatin 40 mg Tablet 20 MG PO (08:53)
[2020-07-03] MEDS: doxycycline 100 mg Tablet PO (08:54)
[2020-07-03] MEDS: PARoxetine 20 mg Tablet 30 MG PO (08:54)
[2020-07-03] MEDS: pantoprazole DR 40 mg Tablet PO (08:54)
[2020-07-03] MEDS: donepezil 5 MG Tablet 10 MG PO (08:54)
--- NOTE | 2020-07-03 10:05 | PC.SOCIAL ---
IMM Updated Updated pt on Pg 2 IMM. Provided pt a copy. No questions voiced. Signed, dated, & timed copy in chart.
--- NOTE | 2020-07-03 10:40 | PC.CHAP ---
Pastoral Care Encounter/Spiritual Assessment Type of Contact [] Declined marketing communications manager visit [] Patient/Family/Request visit [] Outpatient visit [] Follow-up visit [] Physician referral [] Code/Alert [x] Routine visit [] Staff referral [] Actively dying [] Patient sleeping [] Family support [] [] Out of room [] Palliative care [] [x] Receiving care in room [] Pre-surgical visit [] Trauma [] Long length of stay [] ICU visit [] Other: Relational/Emotional Strength [x] Patient feels connected with others/family/visitors/staff [] Distress [] Loneliness/isolation [] Abandonment Spirituality of Patient [x] Person of Kiesha [] Attends [employer] their [place]ha [x] Believes in Prayer [] Reads Bible or Denominational materials [] There are Spiritual issues to be addressed Glass Blowing Instructor Interventions [x] Prayer [x] Active listening [x] Non-anxious presence [x] Spiritual/emotional support [] Crisis/trauma care [x] Spiritual counseling [] Bereavement support [] Provided bereavement packet [] Provided Bible/devotional materials [] Provided toy/stuffed animal, coloring book to patient or family member [] Provided Communion [] Anointing/[place] [] Salvation [] Completed spiritual assessment [] Other: Impact on Illness or Injury [] Angry [] Fearful [] Anxious [] Often cries [] Exhaustion [] Unable to work [] Unable to attend confucianism [] Unable to walk/stand [] Unable to read [] Unable to drive [] Unable to eat/drink [] Unable to sleep [] Unable to be with family [] Patient intubated [] Other: Summary ADM Pain shortness of breath, doesn't about tests has good attitude, feels good, going home his son will take care of him Time spent with patient 10 mins
[2020-07-03 10:58] LABS: Glucose Point of Care 226 mg/dL (70-110)
[2020-07-03 11:22] VITALS: BP 132/69; PULSE 67; RESP 18; TEMP 36.4; O2SAT 92
--- NOTE | 2020-07-03 11:52 | PC.SOCIAL ---
[facility] called wanting to verify if Doxycycline Hyclate can be used instead of monohydrate and if can be via capsule not tablet. Dr Meier called and verified this was okay to change. Updated Cande at pharmacy.
--- NOTE | 2020-07-03 12:48 | P.DS_ITS ---
Discharge Providers Date of Admission: 06/28/20 16:49 Date of Discharge: July 03, 2020 Attending Provider at Admission: Lupis Mcgill MD Attending Provider at Discharge: Anastacio Meier MD Primary Care Provider: Nils Guerrero MD Diagnoses at Discharge Discharge Diagnosis (1) Sepsis: Status: Acute Qualifiers: Sepsis acute organ dysfunction status: with acute organ dysfunction Sepsis type: sepsis due to unspecified organism Severe sepsis acute organ dysfunction type: encephalopathy Severe sepsis shock status: without septic shock Qualified Code(s): A41.9 - Sepsis, unspecified organism; R65.20 - Severe sepsis without septic shock; G93.40 - Encephalopathy, unspecified (2) AMS (altered mental status): Status: Acute Qualifiers: Altered mental status type: unspecified Qualified Code(s): R41.82 - Altered mental status, unspecified (3) Hydronephrosis: Status: Inactive Qualifiers: Hydronephrosis type: unspecified Qualified Code(s): N13.30 - Unspecified hydronephrosis (4) Urinary retention: Status: Acute (5) Diabetes mellitus: Status: Acute Qualifiers: 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 Reason for Visit Reason for Visit: abd pain Hospital Course Discharge Summary: This is a 80-year-old male with a past medical history of dementia, depression, [id number] type 2 diabetes mellitus, neuropathic pain, who presents to [facility] with his son due to complaints of altered mental status Patient was admitted for altered mental status, etiology multifactorial secondary to dementia, atypical depression, possible UTI, acute urinary retention -COVID was negative -Head CT showed no acute infarct, moderate atrophy, chronic ischemic disease, patient worked with physical therapy as inpatient, no focal neurologic deficits, the likelihood of stroke is fairly unlikely -Patient had an infectious work-up, remained afebrile during his hospitalization, blood cultures remain unremarkable -There was concerns for UTI on admission, CT of the abdomen was negative for obstructive uropathy, patient was kept on Rocephin during his hospital admission, urine cultures are unremarkable, will be discharged on 3 remaining days of Bactrim -On admission patient was found to have acute urinary retention, approximately 1200 cc was drained from the bladder, CT of the abdomen did show left hydro- ureter nephrosis, urology was consulted, who felt that the findings were likely chronic, and that stent placement could be placed if his condition deteriorated. Patient remained hemodynamically stable, afebrile, thus no stent placement was required. Reed catheter was removed 2 days before discharge, however patient failed voiding trial. Reed was put back in, patient was discharged with Reed, with close follow-up with Dr. Rodriguez as outpatient. -There was concerns for possible meningitis through his hospital admission, he was on broad-spectrum antibiotics on admission, including acyclovir but they were de-escalated, his mentation improved without requiring a lumbar puncture and with de-escalating antibiotics. Remained afebrile, no neck pain, no neck stiffness, no significant alterations of his mentation. However patient's family was quite concerned about his cognition, concerned for meningitis/encephalitis, thus patient had lumbar puncture performed, Gram stain unremarkable, white blood cell count was 1, clear, colorless, glucose 101, total protein 62, serologies pending. Thus I felt that it infectious etiology was fairly unlikely. -There was concerns for possible tickborne illness, patient was kept on doxycycline throughout his hospital admission, his Lyme serologies are pending, I will discharge the patient on 7 remaining days of doxycycline -Patient does have dementia, is on donepezil -Patients of many years, 2 months ago, suddenly, patient admits that he has been depressed, likely has a component of atypical depression that is a significant component to his initial presentation, no suicidal homicidal ideation, does not have access to the guns, was told by the son that there is a gun safe in the home and is locked. I had psychiatry see the patient as inpatient, recommended increasing paroxetine to 40 mg daily, and follow-up with [facility] as outpatient. And if 40 mg of paroxetine is not effective, recommend to switch to Lexapro. -Patient will be discharged home with home health care, and to the care of his son Physical Exam Const: COMMON NORMALS: no acute distress and alert ORIENTATION/CONSCIOUSNESS: Yes oriented to person and Yes oriented to place; not oriented to time HENMT: COMMON NORMALS: normocephalic HEAD & SCALP: normocephalic Neck/C-Spine: COMMON NORMALS: no JVD Resp: COMMON NORMALS: normal respiratory effort, No retractions, No use of accessory muscles and clear to auscultation bilaterally AUSCULTATION: clear to auscultation bilaterally Cardio: COMMON NORMALS: no JVD, regular rate, regular rhythm, S1 normal heart sound present and S2 normal heart sound present RATE: regular rate RHYTHM: regular rhythm HEART SOUNDS: S1 normal heart sound present and S2 normal heart sound present GI: COMMON NORMALS: Normal to inspection, nondistended, normoactive bowel sounds present, Soft to palpation, non-tender, No hepatosplenomegaly present, no masses and no bruits PALPATION: Yes Soft to palpation and Yes No hepatosplenomegaly present Extremity: COMMON NORMALS: capillary refill normal, no clubbing, cyanosis or edema, no calf tenderness and no pedal edema Neuro: SENSORIUM/ORIENTATION: Yes alert, Yes oriented to person, Yes oriented to place and No oriented to time Psych: COMMON NORMALS: mental status grossly normal Urinary Catheter Management^: Reed: Cath Placed During This Visit: yes, but has since been removed by the nurse Reason for Continuing Indwelling Catheter: Acute Urinary Retention or Obstruction Urinary Catheter Date of Insertion: 07/02/20 Urinary Catheter Time of Insertion: 15:39 Date Urinary Catheter Removed: 07/02/20 Time Urinary Catheter Discontinued: 10:00 Discharge Data Data Completed and Pending: Completed Studies During Hospitalization Category Date Time Status CT abdomen pelvis w con* [id number] Urge nt Cat Scan 06/28/20 12:[address] head wo con* [id number] Stat Cat Scan 06/28/20 12:36 Completed FL guided lumbarp unc dx* [id number] Stat Exams 07/02/20 11:11 Completed XR chest 1V susan ble [id number] Stat Exams 06/28/20 11:37 Completed US renal BI with bladder Routine Ultrasound 06/29/20 18:19 Completed Pending at discharge Category Date Time Status Blood Culture Sta t Lab 06/28/20 11:54 Results C Reactive Protei n AM LABS Lab 07/04/20 04:00 Ordered C Reactive Protei n AM LABS Lab 07/05/20 04:00 Ordered CSF Culture & Gra m Stain Stat Lab 07/02/20 12:15 Results Complete Blood Co unt w/Auto AM LABS Lab 07/04/20 04:00 Ordered Complete Blood Co unt w/Auto AM LABS Lab 07/05/20 04:00 Ordered Comprehensive Met abolic Panel AM LA BS Lab 07/04/20 04:00 Ordered Comprehensive Met abolic Panel AM LA BS Lab 07/05/20 04:00 Ordered Lymes Disease Ant ibodies CSF Stat Lab 07/02/20 12:05 Received Magnesium AM LABS Lab 07/04/20 04:00 Ordered Magnesium AM LABS Lab 07/05/20 04:00 Ordered Miscellaneous Laine t Routine Lab 07/02/20 12:15 Received Miscellaneous Laine t Routine Lab 07/02/20 12:15 Received Oligoclonal Bands IGG, CSF Stat Lab 07/02/20 12:05 Received Phosphorus AM LAB S Lab 07/04/20 04:00 Ordered Phosphorus AM LAB S Lab 07/05/20 04:00 Ordered Procalcitonin AM LABS Lab 07/04/20 04:00 Ordered Procalcitonin AM LABS Lab 07/05/20 04:00 Ordered [place] Enceph. Virus IFA CSF Stat Lab 07/02/20 12:05 Received Tick Panel Routin e Lab 06/28/20 19:03 Results VDRL on CSF Stat Lab 07/02/20 12:15 Received [place] Virus A B Panel,CSF Stat Lab 07/02/20 12:15 Received Labs from last 24 hours 07/03/20 07/03/20 07/03/20 10:50 06:31 03:30 WBC RBC Hgb Hct MCV MCH MCHC RDW Plt Count MPV Neut % (Auto) Lymph % (Auto) [place] % (Auto) Eos % (Auto) Baso % (Auto) Neut # (Auto) Lymph # (Auto) [place] # (Auto) Eos # (Auto) Baso # (Auto) Nucleated RBC % (a uto) Nucleated RBCs # Sodium Potassium Chloride Carbon Dioxide Anion Gap BUN Creatinine GFR Calculation Glucose POC Glucose 226 191 Calculated Osmolal ity Calcium Phosphorus Magnesium Total Bilirubin AST ALT Alkaline Phosphata se C-Reactive Protein Total Protein Albumin Globulin Procalcitonin 1.60 H CSF Appearance CSF Color CSF Specific Gravi ty CSF WBC CSF RBC CSF Mononuclear # Auto CSF Mononuclear WB Cs % CSF Polynuclear WB Cs # CSF Polynuclear WB Cs % CSF Diff Comment CSF Glucose CSF LDH CSF Total Protein CSF Albumin CSF VDRL [place] Virus Ig G Ab [place] Virus Ig M Ab Misc Test Referenc e 07/03/20 07/03/20 07/02/20 03:30 03:30 20:05 WBC 4.1 RBC 3.51 L Hgb 11.4 L Hct 35.3 L MCV 100.6 H MCH 32.5 MCHC 32.3 RDW 14.1 Plt Count 142 MPV 10.3 Neut % (Auto) 46.4 Lymph % (Auto) 34.6 [place] % (Auto) 8.8 Eos % (Auto) 9.0 Baso % (Auto) 0.7 Neut # (Auto) 1.90 Lymph # (Auto) 1.4 [place] # (Auto) 0.4 Eos # (Auto) 0.4 Baso # (Auto) 0.0 Nucleated RBC % (a uto) 0 Nucleated RBCs # 0.0 Sodium 138 Potassium 3.9 Chloride 104 Carbon Dioxide 24 Anion Gap 13.9 BUN 20 Creatinine 1.0 GFR Calculation Not Reportable Glucose 174 H POC Glucose 295 Calculated Osmolal ity 287 Calcium 8.4 L Phosphorus 3.0 Magnesium 1.8 Total Bilirubin 0.4 AST 47 H ALT 41 Alkaline Phosphata se 126 C-Reactive Protein 14.1 H Total Protein 6.9 Albumin 3.7 Globulin 3.2 Procalcitonin CSF Appearance CSF Color CSF Specific Gravi ty CSF WBC CSF RBC CSF Mononuclear # Auto CSF Mononuclear WB Cs % CSF Polynuclear WB Cs # CSF Polynuclear WB Cs % CSF Diff Comment CSF Glucose CSF LDH CSF Total Protein CSF Albumin CSF VDRL [place] Virus Ig G Ab [place] Virus Ig M Ab Misc Test Referenc e 07/02/20 07/02/20 07/02/20 16:44 12:15 12:15 WBC RBC Hgb Hct MCV MCH MCHC RDW Plt Count MPV Neut % (Auto) Lymph % (Auto) [place] % (Auto) Eos % (Auto) Baso % (Auto) Neut # (Auto) Lymph # (Auto) [place] # (Auto) Eos # (Auto) Baso # (Auto) Nucleated RBC % (a uto) Nucleated RBCs # Sodium Potassium Chloride Carbon Dioxide Anion Gap BUN Creatinine GFR Calculation Glucose POC Glucose 137 Calculated Osmolal ity Calcium Phosphorus Magnesium Total Bilirubin AST ALT Alkaline Phosphata se C-Reactive Protein Total Protein Albumin Globulin Procalcitonin CSF Appearance CSF Color CSF Specific Gravi ty CSF WBC CSF RBC CSF Mononuclear # Auto CSF Mononuclear WB Cs % CSF Polynuclear WB Cs # CSF Polynuclear WB Cs % CSF Diff Comment CSF Glucose CSF LDH CSF Total Protein CSF Albumin CSF VDRL [place] Virus Ig G Ab [place] Virus Ig M Ab Misc Test Referenc e Pending Pending 07/02/20 07/02/20 07/02/20 12:15 12:15 12:15 WBC RBC Hgb Hct MCV MCH MCHC RDW Plt Count MPV Neut % (Auto) Lymph % (Auto) [place] % (Auto) Eos % (Auto) Baso % (Auto) Neut # (Auto) Lymph # (Auto) [place] # (Auto) Eos # (Auto) Baso # (Auto) Nucleated RBC % (a uto) Nucleated RBCs # Sodium Potassium Chloride Carbon Dioxide Anion Gap BUN Creatinine GFR Calculation Glucose POC Glucose Calculated Osmolal ity Calcium Phosphorus Magnesium Total Bilirubin AST ALT Alkaline Phosphata se C-Reactive Protein Total Protein Albumin Globulin Procalcitonin CSF Appearance Clear CSF Color Colorless CSF Specific Gravi ty 1.006 CSF WBC 1 CSF RBC 0 CSF Mononuclear # Auto 0.000 L CSF Mononuclear WB Cs % 0 L CSF Polynuclear WB Cs # 0.001 CSF Polynuclear WB Cs % 100 H CSF Diff Comment Yes CSF Glucose 101 H CSF LDH Cancelled CSF Total Protein 62 H CSF Albumin Cancelled CSF VDRL Pending [place] Virus Ig G Ab Pending [place] Virus Ig M Ab Pending Misc Test Referenc e Vitals: Last Vital Signs Temp 97.6 F 07/03/20 11:22 Pulse 67 07/03/20 11:22 Resp 18 07/03/20 11:22 BP 132/69 07/03/20 11:22 Pulse Ox 92 07/03/20 11:22 Discharge Plan Discharge Patient Disposition: Home Condition: Stable Prescriptions: New doxycycline monohydrate 100 mg Tablet 100 mg PO BID 11 Days Qty: 22 RF: 0 Bactrim DS 800-160 mg tablet 1 tab PO Q12H 3 Days Qty: 6 RF: 0 cyanocobalamin (vitamin B-12) 1,000 mcg tablet 1,000 mcg PO DAILY 30 Days Qty: 30 RF: 0 Continued ropinirole 1 mg tablet 1 mg PO BEDTIME RF: 0 donepezil 10 mg tablet 10 mg PO DAILY RF: 0 simvastatin 40 mg tablet 40 mg PO DAILY RF: 0 glimepiride 2 mg tablet 2 mg PO DAILY RF: 0 paroxetine HCl 30 mg tablet 30 mg PO DAILY RF: 0 metformin 1,000 mg tablet 1,000 mg PO BID RF: 0 omeprazole 20 mg capsule,delayed release(DR/EC) 20 mg PO DAILY RF: 0 montelukast 10 mg tablet 10 mg PO DAILY RF: 0 ClearLax 17 gram/dose powder See Rx Instructions .ROUTE .COMPLEX RF: 0 pioglitazone 30 mg tablet 30 mg PO DAILY RF: 0 Discontinued cetirizine 10 mg tablet 10 mg PO BID RF: 0 Discharge Orders: Discharge Order (Routine); Ordered 07/03/20 Ordered By: Anastacio Meier Other Ambulatory Orders: Complete Blood Count w/Auto (Routine) Timeframe: 1 Week Location: Determined by Patient Ordered By: Anastacio Meier Comprehensive Metabolic Panel (Routine) Timeframe: 1 Week Facility: [facility] - Location: Lab - Main Lab Ordered By: Anastacio Meier Referrals: Jono Rodriguez MD [Physician] - 2 weeks (OFFICE WILL CALL WITH APPOINTMENT WITH DR RODRIGUEZ) Nils Guerrero MD [Primary Care Provider] - [facility], [Staff Physician] - 1 week Discharge Diet: Regular and Diabetic Discharge Activity: Resume usual activity Patient Instructions: Depression (GEN), Dementia (GEN) Activity Restrictions/Additional Instructions: -Follow-up with psychiatry in 1 week Discharge Attestations Time Spent in Discharge Care*: less than 30 min Quality Metrics Clinical Quality Measures During this hospital stay, did patient experience: None Coding Level of Care Code Acute Grading Machine Feeder for Chg Fwd Diagnoses Sepsis A41.9; R65.20; G93.40 Sepsis acute organ dysfunction status: with acute organ dysfunction Sepsis type: sepsis due to unspecified organism Severe sepsis acute organ dysfunction type: encephalopathy Severe sepsis shock status: without septic shock AMS (altered mental status) R41.82 Altered mental status type: unspecified Hydronephrosis N13.30 Hydronephrosis type: unspecified Urinary retention R33.9 Diabetes mellitus E11.9 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
[2020-07-03 13:13] VITALS: BP 132/69; PULSE 67; RESP 18; TEMP 36.4; O2SAT 92
--- NOTE | 2020-07-03 13:38 | P.CONIM_ITS ---
Providers/Reason for Consult Consulting Physican/Specialty*: Blane Dunne MD Reason for Consult*: Psychiatric Evaluation Attending Physician: Anastacio Meier MD Primary Care Provider: Nils Guerrero MD Psych Consult HPI History of Present Illness Sheng Patiño is a 80 year old male who Sheng presented to the emergency room several days ago with his family reporting he woke up with abdominal pain and frequent emesis. He was reportedly confused, unable to provide any history including his birthday. [facility] for definitive treatment of those issues. Today he presents quite pleasant and conversant, but very limited in his ability to provide factual information beginning with his birthday. He was ultimately able to give me the month and date but was unable to provide the year. His son happened to be in the room and was able to give some factual information. He often, during the course of our conversation, would identify that he could not remember a certain piece of information. There was some historical data like what he did for a living for most of his life and things of that nature that he could report, but significant events in his life including the of his of 60 years escaped him and his son reports that a significant part of his decline has arisen in the wake of her . He first had some psychiatric treatment shortly after his ?s demise in March of this year. He and his had been about 62 years and they report that he has been having angry outbursts, some of it related to memory problems like he had lost his keys or locked himself out of something, and realizing that is not something that he would do if his mind was right. This led to some really explosive moments. They have since confiscated the keys and he has been doing reportedly better since then, but they report that on the day that he came to the hospital they went into the room and he was doubled over in pain, unable to manage himself and figure out what to do. He complained initially of chest pain and his son immediately called EMS. It was clear that he was not having a heart attack but ultimately, they had significant concerns. The son who is present and his now live with dad. 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 His ability to assist in anything has greatly diminished. He did have some low mood and anxiety which led to him being placed on Paxil with some limited improvement, but no impact on the memory. No history of suicidality, suicide attempts, and no significant history of addiction issues. He is not a cigarette smoker, does not drink alcohol, smoke marijuana or any other illicit drugs. Outside of recent time with bereavement, there have not been issues of psychiatric concerns. PSYCHIATRIC HISTORY: As above. SUBSTANCE ABUSE HISTORY: As above. FAMILY HISTORY: No significant mental health or addiction issues reported in the family or suicide attempts or completions. DEVELOPMENTAL HISTORY: He denies any issues with his mother?s or delivery of him. He met all developmental milestones on time. He denies any speech therapy, learning support, emotional support, or special education classes. PSYCHOSOCIAL HISTORY: His mother and father were together when he was born. They reportedly had seven kids and it was somewhat confusing as they tried to name off the siblings. His mother lived quite a long life as well. She a decade or so ago. His childhood was reportedly good. He denied any emotional, physical, or sexual abuse. He graduated from high school. He has significant high school training that he could not really recall. He is heterosexual with his longest relationship being about 62 years. He had one marriage. They had six children, three boys and three girls. He has never been in the . He attended [employer] with his for many, many years. His longest employment was at at one point in [place]. He currently lives at a home with his son and [id number]. LEGAL HISTORY: He has never been to [facility]. MEDICAL HISTORY: Extensive as he ages, including diabetes, high cholesterol, hypertension, but most of his life he had been really healthy. Meds Current Medications: Current Medications Generic Name Dose Route Start Last Admin Trade Name Freq PRN Reason Stop Dose Admin Acetaminophen 650 mg 06/28/20 18:14 06/30/20 03:54 Tylenol PO 650 mg Q6H PRN Administration Mild/Mod Pain Or Temp >/= 101 Acetaminophen 650 mg 06/28/20 20:19 06/28/20 21:04 Tylenol OK 650 mg Q4H PRN Administration MILD PAIN OR INCR EASE TEMP Atorvastatin Calci um 20 mg 06/30/20 09:00 07/02/20 09:03 Lipitor PO 20 mg DAILY TWILA Administration Donepezil HCl 10 mg 06/30/20 09:00 07/02/20 08:58 Aricept PO 10 mg DAILY TWILA Administration Doxycycline Monohy drate 100 mg 06/30/20 18:00 07/02/20 18:20 Vibramycin PO 100 mg BID TWILA Administration Protocol Enoxaparin Sodium 40 mg 06/28/20 19:00 07/02/20 18:21 Lovenox SUBCUT 40 mg Q24H TWILA Administration Ceftriaxone Sodium 1,000 mg/ 50 mls @ 100 mls/ hr 07/01/20 08:00 07/02/20 09:25 Sodium Chloride IV Infused Q24H TWILA Infusion Protocol Insulin Aspart 0 unit 06/29/20 18:00 07/02/20 21:51 Novolog SUBCUT 10 unit WM&BEDTIME TWILA Administration Protocol Pantoprazole Sodiu m 40 mg 06/30/20 09:00 07/02/20 09:02 Protonix PO 40 mg DAILY TWILA Administration Paroxetine HCl 30 mg 06/30/20 09:00 07/02/20 08:57 Paxil PO 30 mg DAILY TWILA Administration Ropinirole HCl 1 mg 06/29/20 21:00 07/02/20 21:51 Requip PO 1 mg BEDTIME TWILA Administration PFSH NPU PFSH: Medical History (Updated 07/17/20 @ 00:02 by ) Coronary artery disease Diabetes Hydronephrosis, left Hyperlipidemia Urinary retention Family History (Updated 07/11/20 @ 15:24 by GIOVANNY Monique) Brother Diabetes Other CAD (coronary artery disease) Social History (Updated 07/11/20 @ 15:24 by GIOVANNY Monique) Smoking and tobacco status: never smoked Alcohol intake: never Mental Status Exam MSE Comments: This is an obese, elderly, white male with no abnormal movements. Cooperative with exam in no acute distress. Speech had occasionally decreased rate and volume but mostly secondary to uncertainty of answers. Mood described as okay; affect appeared euthymic. Thought process, organized. Thought content: patient denied any suicidal or homicidal ideation, there were no delusions reported or noted, patient denied any auditory or visual hallucinations. Attention and concentration were intact, and memory was unreli able, but none were formally tested. He is alert and oriented to person. Insight and judgment are impaired. Vitals/I&O/Wt Last Vital Signs Temp 97.7 F 07/03/20 04:00 Pulse 64 07/03/20 04:00 Resp 16 07/03/20 04:00 BP 155/70 07/03/20 04:00 Pulse Ox 95 07/03/20 04:00 07/02/20 07/02/20 07/03/20 14:59 22:59 06:59 Intake Total 770 / 770 480 / 1250 Output Total 650 / 650 1750 / 2400 Balance 120 / 120 480 / 600 -1750 / -1150 Physical Exam Urinary Catheter Management^: Reed: Cath Placed During This Visit: yes, but has since been removed by the nurse Reason for Continuing Indwelling Catheter: Decision to DC Catheter Urinary Catheter Date of Insertion: 07/02/20 Urinary Catheter Time of Insertion: 15:39 Date Urinary Catheter Removed: 07/02/20 Time Urinary Catheter Discontinued: 10:00 Data NPU Micro: Micro: Microbiology 07/02/20 12:15 Gram Stain - Final Cerebrospinal Flu id Microbiology 07/02/20 12:15 Cerebrospinal Fluid Gram Stain - Final A&P Assessment and plan (1) Depression: Status: Acute (2) Dementia: Status: Acute (3) Bereavement: Status: Acute Additional A&P Information This is an 80 year old, white male, with dementia, depression and bereavement, who presents with his dementia making it hard for him to participate in historical fact finding and some concerns about medical condition, but most likely this is the progressive impact of his dementia causing him to have symptoms that cannot be described adequately to get the assistance that he may need. Continue current medication. Could consider increasing his Paxil however there is no overt signs of depression in the session. No need for inpatient psychiatric treatment. It is certainly likely that his bereavement has played a role in his decompensation; however, his dementia is the prevailing issue. Recommend follow-up with geriatric psychiatrist. Attestations NPU Medical Necessity Statement*: N/A. Please see primary care team for medical necessity, however no credible lethality exists and conversation about management of dementia in home or other settings is appropriate. Coding Level of Care Code Acute Mixer Pigment for Luis Enrique Ward Diagnoses Depression F32.9 Dementia F03.90 Bereavement Z63.4
--- NOTE | 2020-07-03 14:04 | PC.NURSE ---
Discharge instructions discussed in detail with Beto Patiño (son and DPOA). All questions answered
[2020-07-03 16:00] VITALS: BP 168/80; PULSE 74; RESP 18; TEMP 36.6; O2SAT 96
[2020-07-03 16:42] LABS: RMSF IGG NOT DETECTED; RMSF IGM NOT DETECTED
[2020-07-03 17:12] LABS: E. Chaffeensis AB IGG <1:64; E. Chaffeensis AB IGM <1:20
[2020-07-05 16:42] LABS: St. Louis Enceph.Virus IGG CSF <1:1; St. Louis Enceph.Virus IGM CSF <1:1
[2020-07-05 19:32] LABS: West Nile Virus AB (IGG) <1.30 index; West Nile Virus AB (IGM) <0.90 index
[2020-07-05 21:56] LABS: VDRL on CSF NON-REACTIVE
[2020-07-06 20:56] LABS: Lyme Disease AB (IGG),IBL NO BANDS DETECTED; Lyme Disease AB (IGM), IBL NO BANDS DETECTED
[2020-07-10 17:02] LABS: Oligoclonal Bands IGG, CSF ONE BAND (NO BANDS)
== END 2020-07-03 17:02 | disposition home or self-care (01) | DRG 871 ==
LOC: ER 17:11 → MEDSURG 22:45
PROVIDERS: Emergency Medicine; Internal Medicine; Admitting Provider Student in an Organized Health Care Education/Training Program; PCP Family Medicine; Visit Provider Family Medicine
DX: A41.9 Sepsis, unspecified organism (principal); G93.41 Metabolic encephalopathy; N13.30 Unspecified hydronephrosis; R65.20 Severe sepsis without septic shock; F03.90 Unspecified dementia, unspecified severity, without behavioral disturbance, psychotic disturbance, mood disturbance, and anxiety; E11.42 Type 2 diabetes mellitus with diabetic polyneuropathy; I25.10 Atherosclerotic heart disease of native coronary artery without angina pectoris; E78.5 Hyperlipidemia, unspecified; R33.9 Retention of urine, unspecified; F32.9 Major depressive disorder, single episode, unspecified; Z79.84 Long term (current) use of oral hypoglycemic drugs; Z63.4 Disappearance and death of family member
CPT/HCPCS: 12345; 36415; 36416; 51702; 51798; 62328; 70450; 71045; 74177; 76770; 76857; 80053; 80500; 81001; 82042; 82945; 82962; 83036; 83605; 83615; 83690; 83735; 84100; 84145; 84157; 84315; 84443; 84484; 85025; 86140; 86592; 86617; 86618; 86653; 86666; 86757; 86788; 86789; 87040; 87070; 87075; 87086; 87205; 87426; 89050; 93005; 96372; 96375; 97110; 97116; 97161; 97530; 99284; G0378; J0133; J0696; J1630; J1650; J1815; J3370; J7030; J7040; J7050; Q9967

== ENCOUNTER 2020-07-09 19:50 | Emergency (ER) | payer MEDICARE, BC, SELFPAY ==
[2020-07-09 19:52] VITALS: BP 152/81; PULSE 79; RESP 18; TEMP 37; O2SAT 98; BMI 27.5
--- NOTE | 2020-07-09 19:58 | XRR_ITS ---
PROCEDURE INFORMATION: Exam: XR Chest, 1 View Exam date and time: 07/09/2020 8:08 PM Age: 80 years old Clinical indication: Other: Weakness TECHNIQUE: Imaging protocol: XR of the chest Views: 1 view. COMPARISON: CR XR chest 1V portable [id number] 06/28/2020 11:40 AM FINDINGS: Lungs: Hypoinflation with asymmetric elevation of the right hemidiaphragm. No significant airspace disease. Pleural space: Mild blunting of the right costophrenic angle. Heart/Mediastinum: Cardiac silhouette upper limits of normal in size. Bones/joints: Degenerative change. When correlating with the previous study, no significant interval changes are present. XR/XR chest 1V portable [id number] IMPRESSION: Stable appearance of the chest, not significantly changed from 06/28/2020 .
--- NOTE | 2020-07-09 19:58 | CTR_ITS ---
PROCEDURE INFORMATION: Exam: CT Head Without Contrast Exam date and time: 07/09/2020 9:03 PM Age: 80 years old Clinical indication: Altered mental status/memory loss and weakness, extremity; Bilateral; Confusion or disorientation TECHNIQUE: Imaging protocol: Computed tomography of the head without contrast. Radiation optimization: All CT scans at this facility use at least one of these dose optimization techniques: automated exposure control; mA and/or kV adjustment per patient size (includes targeted exams where dose is matched to clinical indication); or iterative reconstruction. COMPARISON: CT head wo con* [id number] 06/28/2020 2:27 PM RADIATION DOSE METRICS: Total DLP (mGy-cm): 880.15 FINDINGS: Brain: Cerebral arteriosclerosis. Cerebral and cerebellar atrophy with ventricular dilatation greater than that anticipated for patient's chronological age. No significant interval change. No definitive evidence of acute intracranial pathologic process, trauma, or hemorrhage. No generalized edema. No mass effect. No midline shift. Evidence of small vessel ischemic disease with senile periventricular leukomalacia. Ventricles: No ventriculomegaly. Bones/joints: Unremarkable. No acute fracture. Sinuses: Visualized sinuses are unremarkable. No fluid levels. Mastoid air cells: Visualized mastoid air cells are well aerated. Soft tissues: Unremarkable. CT/CT head wo con* [id number] IMPRESSION: 1. No significant interval change. 2. No definitive evidence of acute intracranial pathologic process or hemorrhage. Radiation Dose CTDIVOL = (mGy): DLP = 880.15 (mGy-cm)
--- NOTE | 2020-07-09 19:59 | ECG_ITS ---
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 Measurements Intervals [place] Rate: 76 P: 87 TN: 205 QRS: -46 QRSD: 86 T: 68 QT: 350 QTc: 394 Interpretive Statements SINUS RHYTHM WITH MARKED SINUS ARRHYTHMIA PATTERN CONSISTENT WITH PULMONARY DISEASE LEFT ANTERIOR FASCICULAR BLOCK [QRS AXIS <= -45, QR IN I, RS IN II] NONSPECIFIC T-WAVE ABNORMALITY Compared to ECG 06/28/2020 14:26:00 Left anterior fascicular block now present Left-axis deviation no longer present T-wave abnormality still present Electronically Signed On 07-09-2020 23:45:47 CDT by Og Lewis M.D. [email or web address]
--- NOTE | 2020-07-09 20:04 | W.ED.GENADLT ---
HPI - General Adult General: Chief complaint: General Medical Stated complaint: weakness Time Seen by Provider: 07/09/20 20:03 Source: patient and family Mode of arrival: ambulatory Limitations: no limitations History of Present Illness: HPI narrative: 80-year-old male who was admitted 1 week ago for weakness and confusion. Patient has an indwelling Reed for UTI and urinary retention. Patient earlier today had some possible right-sided facial droop per family with home health and has had increased confusion. Patient's symptoms resolved and patient states he feels completely fine. He has 5 out of 5 strength to all extremities. Patient denies any fever states he has had a mild cough. Family states he just has confusion from now and then. Associated symptoms: Reports confusion; Deny chest pain, dyspnea, headache(s), nausea, rash or vomiting Review of Systems Const: Denies: fever(s), chills, body aches or change in appetite Eyes: Denies: blurry vision or eye discomfort ENMT: Denies: throat pain or dental pain Card: Denies: chest pain Resp: Denies: dyspnea GI: Denies: abdominal pain, nausea, vomiting or diarrhea : Denies: dysuria Musc: Denies: neck pain or back pain Skin/Breast: Denies: rash Neuro: Reports: confusion; Denies: headache(s) Psych: Denies: depression Dain/Lymph: Denies: easy bruising All/Imm: Denies: urticaria PFSH ED PFSH: Medical History Coronary artery disease Diabetes Hydronephrosis, left Hyperlipidemia Urinary retention Social History Smoking and tobacco status: unknown if ever smoked Alcohol intake: unknown Physical Exam Const: COMMON NORMALS: no acute distress, patient oriented x3 and healthy appearing HENMT: COMMON NORMALS: normocephalic and atraumatic HEAD & SCALP: normocephalic and atraumatic Eye: COMMON NORMALS: Equal, round and reactive pupils present and EOMs intact bilaterally PUPIL: Yes Equal, round and reactive pupils present Neck/C-Spine: COMMON NORMALS: full ROM and supple Chest: COMMONS NORMALS: normal inspection of the chest and normal palpation of entire chest wall Resp: COMMON NORMALS: normal respiratory effort, No retractions, No use of accessory muscles and clear to auscultation bilaterally AUSCULTATION: clear to auscultation bilaterally Cardio: COMMON NORMALS: regular rate, regular rhythm and No murmurs present (Cardio) RATE: regular rate RHYTHM: regular rhythm GI: COMMON NORMALS: Normal to inspection, nondistended, normoactive bowel sounds present, Soft to palpation, non-tender and no masses PALPATION: Yes Soft to palpation Extremity: COMMON NORMALS: normal to inspection and full ROM Neuro: COMMON NORMALS: patient oriented x3, moves all extremities and no focal motor deficits Psych: COMMON NORMALS: mental status grossly normal, Normal thought process present and cooperative THOUGHT PROCESS: Normal thought process present Skin: COMMON NORMALS: no rashes or lesions noted and no wounds GENERAL SKIN EXAM: no rashes or lesions noted Course Vital Signs: Vital signs: Vital Signs Temperature 98.6 F 07/09/20 19:52 Pulse Rate 89 07/09/20 22:36 Respiratory Rate 16 07/09/20 22:36 Blood Pressure 137/67 07/09/20 22:36 Pulse Oximetry 98 07/09/20 22:36 MDM - General Adult MDM Narrative: Medical decision making narrative: Presents with generalized weakness along with confusion. Patient's lab work here is normal and he has no UTI. Head CT is normal as well. He has no signs of a stroke. He does have chronic dementia that is likely worsening. Patient received home health. He is stable for discharge and is to follow-up with his PCP and return if worsening. Lab Data: Labs: Lab Results 07/09/20 07/09/20 07/09/20 Range/Units 20:22 20:22 20:22 WBC 7.8 (4.0-10.0) 10^3/ uL RBC 4.05 L (4.1-5.3) 10^6/u L Hgb 13.0 (11.7-16.6) g/dL Hct 39.9 L (42.0-52.0) % MCV 98.5 H (80-94) fL MCH 32.1 (28.0-34.0) pg MCHC 32.6 (30.0-36.0) g/dL RDW 14.2 (12.1-15.1) % Plt Count 210 (130-400) 10^3/c mm MPV 10.1 (7.4-10.4) fL Neut % (Auto) 60.3 % Lymph % (Auto) 26.9 % [place] % (Auto) 7.9 % Eos % (Auto) 3.8 % Baso % (Auto) 0.8 % Neut # (Auto) 4.72 (1.8-7.7) 10^3/u L Lymph # (Auto) 2.1 (0.8-4.8) 10^3/u L [place] # (Auto) 0.6 (0.2-0.9) 10^3/u L Eos # (Auto) 0.3 (0.0-0.8) 10^3/u L Baso # (Auto) 0.1 (0.0-0.1) 10^3/u L Nucleated RBC % (a uto) 0 % Nucleated RBCs # 0.0 /100WBC PT 12.90 (12.1-14.9) SECO NDS INR 0.95 (0.8-1.2) Sodium 135 L (136-145) mmol/L Potassium 4.7 (3.5-5.1) mmol/L Chloride 101 (98-107) mmol/L Carbon Dioxide 22 (22-29) mmol/L Anion Gap 16.7 (5-19) BUN 22 (8-23) mg/dL Creatinine 1.4 H (0.7-1.2) mg/dL GFR Calculation Not Reportable Glucose 128 H (65-115) mg/dL Calculated Osmolal ity 278 L (285-295) mOsm/k g Calcium 9.5 (8.5-10.5) mg/dL Total Bilirubin 0.5 (0.15-1.2) mg/dL AST 25 (0-40) U/L ALT 27 (0-41) U/L Alkaline Phosphata se 107 (40-130) IU/L Total Protein 7.7 (6.6-8.7) g/dL Albumin 4.1 (3.5-5.2) g/dL Globulin 3.6 (1.3-4.6) g/dL Urine Color (Yellow) Urine Appearance (CLEAR) Urine pH (5-7) Ur Specific Gravit y (1.005-1.030) Urine Protein (Negative) Urine Glucose (UA) (Normal) Urine Ketones (Negative) Urine Blood (Negative) Urine Nitrate (Negative) Urine Bilirubin (NEGATIVE) Urine Urobilinogen (Negative) mg/dL Ur Leukocyte Lilli ase (Negative) Urine RBC (0-2) /hpf Urine WBC (0-5) /hpf Ur Squamous Epith Cells (0-5) Amorphous Sediment Urine Bacteria (NONE) 07/09/20 Range/Units 21:10 WBC (4.0-10.0) 10^3/ uL RBC (4.1-5.3) 10^6/u L Hgb (11.7-16.6) g/dL Hct (42.0-52.0) % MCV (80-94) fL MCH (28.0-34.0) pg MCHC (30.0-36.0) g/dL RDW (12.1-15.1) % Plt Count (130-400) 10^3/c mm MPV (7.4-10.4) fL Neut % (Auto) % Lymph % (Auto) % [place] % (Auto) % Eos % (Auto) % Baso % (Auto) % Neut # (Auto) (1.8-7.7) 10^3/u L Lymph # (Auto) (0.8-4.8) 10^3/u L [place] # (Auto) (0.2-0.9) 10^3/u L Eos # (Auto) (0.0-0.8) 10^3/u L Baso # (Auto) (0.0-0.1) 10^3/u L Nucleated RBC % (a uto) % Nucleated RBCs # /100WBC PT (12.1-14.9) SECO NDS INR (0.8-1.2) Sodium (136-145) mmol/L Potassium (3.5-5.1) mmol/L Chloride (98-107) mmol/L Carbon Dioxide (22-29) mmol/L Anion Gap (5-19) BUN (8-23) mg/dL Creatinine (0.7-1.2) mg/dL GFR Calculation Glucose (65-115) mg/dL Calculated Osmolal ity (285-295) mOsm/k g Calcium (8.5-10.5) mg/dL Total Bilirubin (0.15-1.2) mg/dL AST (0-40) U/L ALT (0-41) U/L Alkaline Phosphata se (40-130) IU/L Total Protein (6.6-8.7) g/dL Albumin (3.5-5.2) g/dL Globulin (1.3-4.6) g/dL Urine Color Yellow (Yellow) Urine Appearance Clear (CLEAR) Urine pH 5 (5-7) Ur Specific Gravit y 1.020 (1.005-1.030) Urine Protein Trace (Negative) Urine Glucose (UA) Norm (Normal) Urine Ketones Negative (Negative) Urine Blood 3+ H (Negative) Urine Nitrate Negative (Negative) Urine Bilirubin Neg (NEGATIVE) Urine Urobilinogen Norm (Negative) mg/dL Ur Leukocyte Lilli ase Negative (Negative) Urine RBC 25-40 H (0-2) /hpf Urine WBC 0-4 H (0-5) /hpf Ur Squamous Epith Cells Rare (0-5) Amorphous Sediment Not Reportable Urine Bacteria R (NONE) Imaging Data^: CXR: Attestation: I personally reviewed and interpreted this imaging study as follows: My impression: no acute abnormality CT Head: Radiologist's impression: [place] [address] CT Scan Report Signed Patient: Sheng Patiño Unit #: [id number] : 1940 Age/Sex: 80 / M ADM Date: 07/09/20 Loc: ER Room/Bed: Attending Dr: Ordering Provider/Ordering MD: Yuniel Tavarez MD Date of Service: 07/09/20 Procedure(s): CT head wo con* [id number] Accession Number(s): [id number] Report Number: [id number] PROCEDURE INFORMATION: Exam: CT Head Without Contrast Exam date and time: 07/09/2020 9:03 PM Age: 80 years old Clinical indication: Altered mental status/memory loss and weakness, extremity; Bilateral; Confusion or disorientation TECHNIQUE: Imaging protocol: Computed tomography of the head without contrast. Radiation optimization: All CT scans at this facility use at least one of these dose optimization techniques: automated exposure control; mA and/or kV adjustment per patient size (includes targeted exams where dose is matched to clinical indication); or iterative reconstruction. COMPARISON: CT head wo con* [id number] 06/28/2020 2:27 PM RADIATION DOSE METRICS: Total DLP (mGy-cm): 880.15 FINDINGS: Brain: Cerebral arteriosclerosis. Cerebral and cerebellar atrophy with ventricular dilatation greater than that anticipated for patient's chronological age. No significant interval change. No definitive evidence of acute intracranial pathologic process, trauma, or hemorrhage. No generalized edema. No mass effect. No midline shift. Evidence of small vessel ischemic disease with senile periventricular leukomalacia. Ventricles: No ventriculomegaly. Bones/joints: Unremarkable. No acute fracture. Sinuses: Visualized sinuses are unremarkable. No fluid levels. Mastoid air cells: Visualized mastoid air cells are well aerated. Soft tissues: Unremarkable. CT/CT head wo con* [id number] IMPRESSION: 1. No significant interval change. 2. No definitive evidence of acute intracranial pathologic process or hemorrhage. EKG Data^: EKG 1: Attestation: I personally reviewed and interpreted this EKG as follows: EKG interpretation date: 07/09/20 EKG interpretation time: 20:16 Interpretation: nsr hr [address] or t wave abnormalities qrs 86 qtc 380 Computer generated interpretation: Head CT 07/09/20 19:58 IMPRESSION: 1. No significant interval change. 2. No definitive evidence of acute intracranial pathologic process or hemorrhage. Radiation Dose CTDIVOL = (mGy): DLP = 880.15 (mGy-cm) Discharge Plan Discharge Patient Disposition: Home Clinical Impression: Weakness, Chronic confusion Condition: Stable Prescriptions: No Action ropinirole 1 mg tablet 1 mg PO BEDTIME RF: 0 donepezil 10 mg tablet 10 mg PO DAILY RF: 0 simvastatin 40 mg tablet 40 mg PO DAILY RF: 0 glimepiride 2 mg tablet 2 mg PO DAILY RF: 0 metformin 1,000 mg tablet 1,000 mg PO BID RF: 0 omeprazole 20 mg capsule,delayed release(DR/EC) 20 mg PO DAILY RF: 0 montelukast 10 mg tablet 10 mg PO DAILY RF: 0 polyethylene glycol 3350 [ClearLax] 17 gram/dose powder See Rx Instructions .ROUTE .COMPLEX RF: 0 pioglitazone 30 mg tablet 30 mg PO DAILY RF: 0 doxycycline monohydrate 100 mg Tablet 100 mg PO BID 11 Days Qty: 22 RF: 0 cyanocobalamin (vitamin B-12) 1,000 mcg tablet 1,000 mcg PO DAILY 30 Days Qty: 30 RF: 0 amitriptyline 25 mg tablet 25 mg PO BEDTIME RF: 0 paroxetine HCl 40 mg tablet 40 mg PO DAILY RF: 0 Discharge Orders: Discharge Order (Routine); Ordered 07/09/20 Ordered By: Yuniel Tavarez Referrals: Nils Guerrero MD [Primary Care Provider] - 1-3 days Discharge Diet: Advance as tolerated Discharge Activity: Resume usual activity Patient Instructions: Dementia (ED), Weakness (ED) Discharge Date/Time: 07/09/20 22:53 Coding Level of Care Code ED District Sales Manager for Chg Fwd Exam Comprehensive
[2020-07-09 20:32] LABS: Basophils # 0.1 10^3/uL (0.0-0.1); Basophils % 0.8 %; Eosinophils # 0.3 10^3/uL (0.0-0.8); Eosinophils % 3.8 %; Hematocrit 39.9 % (42.0-52.0); Lymphocytes # 2.1 10^3/uL (0.8-4.8); Lymphocytes % 26.9 %; Mean Corpuscular HGB Conc 32.6 g/dL (30.0-36.0); Mean Corpuscular Hemoglobin 32.1 pg (28.0-34.0); Mean Corpuscular Volume 98.5 fL (80-94); Mean Platelet Volume 10.1 fL (7.4-10.4); Monocytes # 0.6 10^3/uL (0.2-0.9); Monocytes % 7.9 %; Neutrophils # 4.72 10^3/uL (1.8-7.7); Neutrophils % 60.3 %; Nucleated Red Blood Cells % 0 %; Platelet Count 210 10^3/cmm (130-400); Red Blood Count 4.05 10^6/uL (4.1-5.3); Red Cell Distribution Width 14.2 % (12.1-15.1); White Blood Count 7.8 10^3/uL (4.0-10.0)
[2020-07-09 21:00] LABS: INR 0.95 (0.8-1.2)
[2020-07-09 21:03] LABS: Alanine Aminotransferase 27 U/L (0-41); Albumin Level 4.1 g/dL (3.5-5.2); Alkaline Phosphatase 107 IU/L (40-130); Anion Gap 16.7 (5-19); Aspartate Amino Transferase 25 U/L (0-40); Blood Urea Nitrogen 22 mg/dL (8-23); Calcium 9.5 mg/dL (8.5-10.5); Carbon Dioxide 22 mmol/L (22-29); Chloride 101 mmol/L (98-107); Globulin 3.6 g/dL (1.3-4.6); Glucose 128 mg/dL (65-115); Osmolality Calculated 278 mOsm/kg (285-295); Potassium 4.7 mmol/L (3.5-5.1); Sodium 135 mmol/L (136-145); Total Bilirubin 0.5 mg/dL (0.15-1.2); Total Protein 7.7 g/dL (6.6-8.7)
[2020-07-09 22:24] LABS: Add Urine Microscopic? YES; Bacteria Urine R; Bilirubin Urine Neg (NEGATIVE); Blood Urine 3+ (Negative); Glucose Urine UA Norm (Normal); Ketones Urine Negative (Negative); Leukocyte Esterase Urine Negative (Negative); Nitrate Urine Negative (Negative); Protein Urine Trace (Negative); RBC Urine 25-40 /hpf (0-2); Squamous Epithelial Cell Urine RARE (0-5); Urine Appearance Clear (CLEAR); Urine Color Yellow (Yellow); Urobilinogen Urine Norm (Negative); WBC Urine 0-4 /hpf (0-5); pH Urine 5 (5-7)
[2020-07-09 22:25] LABS: Add Urine Culture? Yes
[2020-07-09] MEDS: LORazepam 1 mg Tablet PO (22:28)
[2020-07-09 22:36] VITALS: BP 137/67; PULSE 89; RESP 16; O2SAT 98
== END 2020-07-09 22:53 | disposition home or self-care (01) ==
PROVIDERS: Emergency Provider Emergency Medicine; PCP Family Medicine
DX: R53.1 Weakness (principal); R41.0 Disorientation, unspecified; I25.10 Atherosclerotic heart disease of native coronary artery without angina pectoris; E11.9 Type 2 diabetes mellitus without complications; E78.5 Hyperlipidemia, unspecified
CPT/HCPCS: 12345; 36415; 70450; 71045; 80053; 81001; 85025; 85610; 87086; 93005; 99281; 99283

== ENCOUNTER 2020-07-10 03:03 | Observation (INO) | payer MEDICARE, BC, SELFPAY ==
[2020-07-10] VITALS (10 sets, daily range): BP systolic 110–154; BP diastolic 62–82; PULSE 73–85; RESP 14–24; TEMP 36.3–36.9; O2SAT 93–98; BMI 29.9
--- NOTE | 2020-07-10 03:06 | ED_ITS ---
HPI - Male Genitourinary General: Chief complaint: Urogenital-Male Stated complaint: CATH PROBLEMS Time Seen by Provider: 07/10/20 03:08 Source: patient and EMS Mode of arrival: EMS Limitations: no limitations History of Present Illness: HPI Narrative: 80-year-old male has a history of dementia and had a Reed in place. Patient had pulled out his Reed tonight at home. Family wanting transport here to have Reed replaced. I saw patient earlier for his confusion due to dementia. He had no fever. Patient has no complaints at this time. Associated symptoms: Deny dysuria, nausea or vomiting Review of Systems Const: Denies: fever(s), chills, body aches or change in appetite Eyes: Denies: blurry vision or eye discomfort ENMT: Denies: throat pain or dental pain Card: Denies: chest pain Resp: Denies: dyspnea GI: Denies: abdominal pain, nausea, vomiting or diarrhea : Denies: dysuria Musc: Denies: neck pain or back pain Skin/Breast: Denies: rash Neuro: Denies: headache(s) Psych: Denies: depression Dain/Lymph: Denies: easy bruising All/Imm: Denies: urticaria PFSH ED PFSH: Medical History (Updated 07/09/20 @ 22:29 by Yuniel Tavarez MD) Coronary artery disease Diabetes Hydronephrosis, left Hyperlipidemia Urinary retention Social History Smoking and tobacco status: unknown if ever smoked Alcohol intake: unknown Physical Exam Const: COMMON NORMALS: no acute distress and healthy appearing ORIENTATION/CONSCIOUSNESS: Yes oriented to person HENMT: COMMON NORMALS: normocephalic and atraumatic HEAD & SCALP: normocephalic and atraumatic Eye: COMMON NORMALS: Equal, round and reactive pupils present and EOMs intact bilaterally PUPIL: Yes Equal, round and reactive pupils present Neck/C-Spine: COMMON NORMALS: full ROM and supple Chest: COMMONS NORMALS: normal inspection of the chest and normal palpation of entire chest wall Resp: COMMON NORMALS: normal respiratory effort, No retractions, No use of accessory muscles and clear to auscultation bilaterally AUSCULTATION: clear to auscultation bilaterally Cardio: COMMON NORMALS: regular rate, regular rhythm and No murmurs present (Cardio) RATE: regular rate RHYTHM: regular rhythm GI: COMMON NORMALS: Normal to inspection, nondistended, normoactive bowel sounds present, Soft to palpation, non-tender and no masses PALPATION: Yes Soft to palpation Extremity: COMMON NORMALS: normal to inspection and full ROM Neuro: COMMON NORMALS: moves all extremities and no focal motor deficits SENSORIUM/ORIENTATION: Yes oriented to person Psych: COMMON NORMALS: mental status grossly normal, Normal thought process present and cooperative THOUGHT PROCESS: Normal thought process present Skin: COMMON NORMALS: no rashes or lesions noted and no wounds GENERAL SKIN EXAM: no rashes or lesions noted Course Vital Signs: Vital signs: Vital Signs Temperature 98.3 F 07/10/20 03:04 Pulse Rate 85 07/10/20 03:04 Respiratory Rate 16 07/10/20 03:04 Blood Pressure 130/72 07/10/20 03:04 Pulse Oximetry 96 07/10/20 03:04 MDM - Male MDM Narrative: Medical decision making narrative: Del presents here with Reed dislodgment. Patient is also had agitation generalized weakness. Patient's son arrived he states he is no longer able to take care of him due to his agitation especially at night. I spoke to Dr. Felipe who is seen patient in the ER and will admit for observation. Discharge Plan Discharge Prescriptions: No Action ropinirole 1 mg tablet 1 mg PO BEDTIME RF: 0 donepezil 10 mg tablet 10 mg PO DAILY RF: 0 simvastatin 40 mg tablet 40 mg PO DAILY RF: 0 glimepiride 2 mg tablet 2 mg PO DAILY RF: 0 metformin 1,000 mg tablet 1,000 mg PO BID RF: 0 omeprazole 20 mg capsule,delayed release(DR/EC) 20 mg PO DAILY RF: 0 montelukast 10 mg tablet 10 mg PO DAILY RF: 0 polyethylene glycol 3350 [ClearLax] 17 gram/dose powder See Rx Instructions .ROUTE .COMPLEX RF: 0 pioglitazone 30 mg tablet 30 mg PO DAILY RF: 0 doxycycline monohydrate 100 mg Tablet 100 mg PO BID 11 Days Qty: 22 RF: 0 cyanocobalamin (vitamin B-12) 1,000 mcg tablet 1,000 mcg PO DAILY 30 Days Qty: 30 RF: 0 amitriptyline 25 mg tablet 25 mg PO BEDTIME RF: 0 paroxetine HCl 40 mg tablet 40 mg PO DAILY RF: 0 Coding Level of Care Code ED Outreach Associate for Chg Fwd Exam Comprehensive
--- NOTE | 2020-07-10 04:21 | P.HP_ITS ---
Providers/Chief Complaint Primary Care Provider: Nils Guerrero MD Chief Complaint: CATH PROBLEMS History of Present Illness Sheng Patiño is a 80 year old male recently admitted for urinary retention and altered mental status June 28 who presents with his son with 2 ER visits in the last 24 hours. The initial one was secondary to increased confusion, intermittent twitching especially while sleeping. Extensive evaluation was done without findings so he was discharged home. At home he removed his urinary catheter on his own and re-presented here. Son is present during my history and physical and relates that he has had confusion for at least the last 3 years. Prior to his hospital stay he had intermittent episodes of agitation. He is difficult to manage at home but he would like to continue to do this. He report s with the agitation he needs something for his behavior so he can continue to reside at home. He has had no fever since discharge. He continues to eat and drink. I last hospital stay, psychiatry evaluation occurred and there were plans to increase Paxil although I am not sure if this occurred. Review of Systems General: Reports: 10 or more systems reviewed and unremarkable except in HPI and below (Unable to obtain from the patient secondary to dementia.) Medications/Allergies Home Medications Medication Instructions Recorded Confirmed Last Taken Type donepezil 10 mg PO DAILY 06/28/20 07/09/20 07/09/20 History glimepiride 2 mg PO DAILY 06/28/20 07/09/20 07/09/20 History metformin 1,000 mg PO BID 06/28/20 07/09/20 07/09/20 History montelukast 10 mg PO DAILY 06/28/20 07/09/20 07/09/20 History omeprazole 20 mg PO DAILY 06/28/20 07/09/20 07/09/20 History pioglitazone 30 mg PO DAILY 06/28/20 07/09/20 07/09/20 History polyethylene glycol 3350 [ClearLax] See Rx Instructions .ROUTE .COMPLEX 06/28/20 07/09/20 07/08/20 History ropinirole 1 mg PO BEDTIME 06/28/20 07/09/20 07/08/20 History simvastatin 40 mg PO DAILY 06/28/20 07/09/20 07/09/20 History cyanocobalamin (vitamin B-12) 1,000 mcg PO DAILY 30 Days #30 tab 07/03/20 07/09/2007/09/20 Rx doxycycline monohydrate 100 mg PO BID 11 Days #22 tab 07/03/20 07/09/20 07/09/20 Rx amitriptyline 25 mg PO BEDTIME 07/09/20 07/09/20 07/08/20 History paroxetine HCl 40 mg PO DAILY 07/09/20 07/09/20 07/09/20 History Allergies Allergy/AdvReac Type Severity Reaction Status Date / Time No Known Allergies Allergy Verified 07/09/20 20:42 PFSH Acute PFSH: Medical History Coronary artery disease Diabetes Hydronephrosis, left Hyperlipidemia Urinary retention Family History (Updated 07/10/20 @ 04:33 by Heri Felipe MD) Other CAD (coronary artery disease) Social History Smoking and tobacco status: unknown if ever smoked Alcohol intake: unknown Vitals/I&O/Wt Last Vital Signs Temp 98.3 F 07/10/20 03:04 Pulse 85 07/10/20 03:04 Resp 16 07/10/20 03:04 BP 130/72 07/10/20 03:04 Pulse Ox 96 07/10/20 03:04 Weight last 48 hrs Weight 108.862 kg Physical Exam Narrative: EXAM NARRATIVE: General exam is a white male, sleeping but awakens easily. Occasional twitching while trying to get to sleep. When awakened he says a few words but is obviously confused. HEENT: Pupils equally round. Oropharynx clear. Neck is supple no lymphadenopathy or thyromegaly Cardiovascular regular rate and rhythm with a 2/6 systolic murmur Lungs clear Abdomen is soft nontender with positive bowel sounds. No obvious organomegaly demonstrates Reed Extremities no cyanosis clubbing or edema, cap refill brisk Skin no rash Neuro: No obvious focal deficits. Obviously confused. Urinary Catheter Management^: Reed: Cath Placed During This Visit: yes Urinary Catheter Date of Insertion: 07/10/20 Urinary Catheter Time of Insertion: 03:26 Data Other data: Laboratory data from his previous ER visit within the last [address] scan and chest x-ray were reviewed and no concerning findings. A&P Assessment and plan (1) Dementia: Significant dementia with behaviors. This is been going on for quite a while. He saw psychiatry last hospital stay and his Paxil was increased slightly. Family has noticed increased twitching with recent medication changes. Overall agitation has not improved, and appears worsened. Son reports that overall he wants quality of life and comfort over length of life. We discussed the use of antipsychotics and that these could increase risk of sudden cardiac but he would like to proceed with trial at this point I will discontinue his Paxil secondary to higher risk of medication. I will change him to sertraline 25 mg daily. Son does not want to proceed with nursing facility care at this time, unless he qualifies for rehabilitation from his last hospital stay. Discontinue amitriptyline as this is associated with falls Discontinue ropinirole currently Check B12 level, ammonia. TSH was checked recently and normal. Initiation of Zyprexa 2.5 mg twice daily. Monitor for oversedation. Observation Repeat laboratory today as well consisting of CBC, CMP Sitter secondary to dementia with behaviors, recent trauma by patient removing on catheter Status: Acute (2) Depression: See medication changes as noted above Status: Acute (3) Urinary retention: Continue Reed Status: Acute Additional A&P Information Weakness. Physical therapy consultation. Magnesium level Mild acute kidney injury. Fluids overnight. Diabetes mellitus type 2. Sliding scale insulin, consistent carb diet GERD, continue proton pump inhibitor Hyperlipidemia, continue statin Left hydronephrosis. Thought to be chronic by urology History of coronary disease Allow natural Heparin for DVT prophylaxis Attestations Medical Necessity Statement*: Will need less than 2 midnight stay for evaluation of treatment of dementia with behaviors. Time Spent in Patient Care: Greater than 35 minutes Coding Level of Care Code Acute Telecommunicator Supervisor for Luis Enrique Ward Diagnoses Dementia F03.90 Depression F32.9 Urinary retention R33.9
--- NOTE | 2020-07-10 04:40 | PC.NURSE ---
BG 206
[2020-07-10 04:42] LABS: Glucose Point of Care 206 mg/dL (70-110)
[2020-07-10 05:07] LABS: Basophils # 0.1 10^3/uL (0.0-0.1); Basophils % 0.4 %; Eosinophils # 0.3 10^3/uL (0.0-0.8); Eosinophils % 2.2 %; Hematocrit 39.1 % (42.0-52.0); Hemoglobin 12.8 g/dL (11.7-16.6); Lymphocytes # 1.9 10^3/uL (0.8-4.8); Lymphocytes % 15.2 %; Mean Corpuscular HGB Conc 32.7 g/dL (30.0-36.0); Mean Corpuscular Hemoglobin 32.5 pg (28.0-34.0); Mean Corpuscular Volume 99.2 fL (80-94); Mean Platelet Volume 10.8 fL (7.4-10.4); Monocytes # 0.9 10^3/uL (0.2-0.9); Monocytes % 7.2 %; Neutrophils # 9.12 10^3/uL (1.8-7.7); Neutrophils % 74.8 %; Nucleated Red Blood Cells % 0 %; Platelet Count 196 10^3/cmm (130-400); Red Blood Count 3.94 10^6/uL (4.1-5.3); Red Cell Distribution Width 14.2 % (12.1-15.1); White Blood Count 12.2 10^3/uL (4.0-10.0)
[2020-07-10 05:20] LABS: Alanine Aminotransferase 27 U/L (0-41); Alkaline Phosphatase 99 IU/L (40-130); Ammonia 50 umol/L (16-60); Anion Gap 21.5 (5-19); Aspartate Amino Transferase 25 U/L (0-40); Blood Urea Nitrogen 26 mg/dL (8-23); Carbon Dioxide 17 mmol/L (22-29); Chloride 100 mmol/L (98-107); Globulin 3.5 g/dL (1.3-4.6); Glucose 227 mg/dL (65-115); Magnesium 1.7 mg/dL (1.7-2.3); Osmolality Calculated 282 mOsm/kg (285-295); Potassium 4.5 mmol/L (3.5-5.1); Sodium 134 mmol/L (136-145); Total Bilirubin 0.6 mg/dL (0.15-1.2); Total Protein 7.5 g/dL (6.6-8.7)
[2020-07-10 05:36] LABS: Vitamin B12 606 pg/mL (232-1245)
[2020-07-10] MEDS: heparin 5,000 unit/mL INJ 1 mL 5000 UNIT SUBCUT ×2 (05:58→19:03)
[2020-07-10] MEDS: sodium chloride 0.9% 1,000 ML 50 ML IV (05:59)
--- NOTE | 2020-07-10 06:51 | PC.NURSE ---
Report called to CSU. Awaiting a sitter to arrive prior to the patient being transferred to the floor.
--- NOTE | 2020-07-10 07:00 | PC.NURSE ---
From ER Received pt from [facility] via stretcher. Pt is confused, able to state his name and the president but unable to state his , time, year and situation. He is calm and cooperative. Denies any pain when asked. Noted abrasions on his elbows from recent falls. noted jerk movements all over body. Noted bloody urine in the bag from trauma when he pulled his Reed cath out this morning. cath line tubing is draining darkish yellow urine with small blood clots. Penis has blood clots and minimal bleeding. manny-care provided. Sitter for 1:1 at bedside. Redirected and reoriented pt to time, place, and situation. reassurance provided to pt.
[2020-07-10] MEDS: sertraline 50 mg Tablet 25 MG PO (08:45)
[2020-07-10] MEDS: pantoprazole DR 40 mg Tablet PO (08:49)
[2020-07-10] MEDS: donepezil 5 MG Tablet 10 MG PO (08:49)
[2020-07-10] MEDS: atorvastatin 40 mg Tablet 20 MG PO (08:51)
[2020-07-10] MEDS: OLANZapine 5 mg TABLET 2.5 MG PO ×2 (08:54→19:04)
--- NOTE | 2020-07-10 10:29 | PC.CHAP ---
Pastoral Care Encounter/Spiritual Assessment Type of Contact [] Declined audit mgr visit [] Patient/Family/Request visit [] Outpatient visit [] Follow-up visit [] Physician referral [] Code/Alert [] Routine visit [] Staff referral [] Actively dying [] Patient sleeping [] Family support [] [] Out of room [] Palliative care [] [] Receiving care in room [] Pre-surgical visit [] Trauma [] Long length of stay [] ICU visit [] Other: Relational/Emotional Strength [] Patient feels connected with others/family/visitors/staff [] Distress [] Loneliness/isolation [] Abandonment Spirituality of Patient [] Person of Kiesha [] Attends [employer] of their Kiesha [] Believes in Prayer [] Reads Bible or Sikhism materials [] There are Spiritual issues to be addressed Title I Assistant Interventions [] Prayer [] Active listening [] Non-anxious presence [] Spiritual/emotional support [] Crisis/trauma care [] Spiritual counseling [] Bereavement support [] Provided bereavement packet [] Provided Bible/devotional materials [] Provided toy/stuffed animal, coloring book to patient or family member [] Provided Communion [] Anointing/[place] [] Salvation [] Completed spiritual assessment [] Other: Impact on Illness or Injury [] Angry [] Fearful [] Anxious [] Often cries [] Exhaustion [] Unable to work [] Unable to attend shinto [] Unable to walk/stand [] Unable to read [] Unable to drive [] Unable to eat/drink [] Unable to sleep [] Unable to be with family [] Patient intubated [] Other: Summary Patient busy with staff. Follow up visit requested. Time spent with patient
--- NOTE | 2020-07-10 10:45 | PM.PN ---
Subjective Subjective: Interval history: Patient sleeping comfortably in bed at time of exam this morning. Sitter at bedside. Patient would open his eyes and awaken easily and responds to voice. He reported that he did not know where we were at when asked if he could tell me his name and date of he replied that he could not. Patient denied any chest pain, no abdominal pain, no shortness of breath reported. Vitals/I&O/Wt Last Vital Signs Temp 97.8 F 07/10/20 07:25 Pulse 82 07/10/20 09:07 Resp 16 07/10/20 07:25 BP 145/81 07/10/20 07:25 Pulse Ox 94 07/10/20 09:07 07/09/20 07/10/20 07/10/20 22:59 06:59 14:59 Intake Total 240 / 240 Balance 240 / 240 Weight last 48 hrs Weight 108.862 kg Physical Exam Const: COMMON NORMALS: no acute distress OTHER: Awake, confusion secondary to underlying dementia, unable to tell me his name or birthdate HENMT: COMMON NORMALS: normocephalic and atraumatic HEAD & SCALP: normocephalic and atraumatic Resp: COMMON NORMALS: normal respiratory effort, No retractions, No use of accessory muscles and clear to auscultation bilaterally AUSCULTATION: clear to auscultation bilaterally OTHER: No appreciable wheezing or rhonchi Cardio: OTHER: Regular rate and rhythm, no appreciable murmur, normal peripheral perfusion with no significant lower extremity edema GI: OTHER: Soft, nontender, nondistended, normal bowel sounds : OTHER: Reed catheter in place Extremity: OTHER: No acute deformity, negative Homans sign in the lower extremities bilaterally, no appreciable edema in the lower extremities Neuro: OTHER: Patient is awake, when asked what his name or date of was he responded I cannot remember reported that he did not know the year and did not know the month. Moves all extremities appropriately, no slurred speech, no facial droop Psych: OTHER: Confusion with underlying dementia. Patient alert and cooperative during exam Skin: COMMON NORMALS: no rashes or lesions noted GENERAL SKIN EXAM: no rashes or lesions noted Urinary Catheter Management^: Reed: Cath Placed During This Visit: yes Reason for Continuing Indwelling Catheter: Chronic Indwelling Urinary Catheter on Admission Urinary Catheter Date of Insertion: 07/10/20 Urinary Catheter Time of Insertion: 03:26 Data : 07/10/20 04:35 07/10/20 04:35 A&P Assessment and plan (1) Dementia: Paxil discontinued and started on sertraline 25 mg daily. Risk and benefits were discussed with patient's son on admission. Patient is resting comfortably in bed today, will discuss further with son. Attempted to call him this morning at around 1045 however no answer. Will touch base with him later today. Amitriptyline discontinued on admission Requip discontinued on admission Ammonia, B12 within normal limits, TSH recently checked and within normal limits Given Zyprexa 2.5 mg twice daily, started today. Continue to monitor for any oversedation with addition of this medication Remain on observation at this time Slight increase in BUN and creatinine, however no significant increase, recent trauma with patient filling out his Reed catheter. We will continue with a sitter at this time, however patient is very cooperative today Status: Acute (2) Depression: Medication changes as noted above Status: Acute (3) Urinary retention: Continue Reed, and outpatient urology follow-up Status: Acute Additional A&P Information Generalized weakness: Continue with physical therapy Mild acute kidney injury: Recent trauma and patient recently on Bactrim, Bactrim is now been discontinued. Will recheck BMP in the morning Diabetes mellitus type 2. Sliding scale insulin, consistent carb diet GERD, continue proton pump inhibitor Hyperlipidemia, continue statin Left hydronephrosis. Thought to be chronic by urology on consultation during previous admission, continue with outpatient follow-up History of coronary disease CODE STATUS: Do Not Resuscitate/DNI DVT prophylaxis: Heparin Diet: Carbohydrate consistent diet Attestations Medical Necessity Statement*: Further observation due to dementia with underlying behavioral disturbances with the need for titration of medications. Coding Level of Care Code Acute Ophthalmology Technician for Luis Enrique Ward Diagnoses Dementia F03.90 Depression F32.9 Urinary retention R33.9
[2020-07-10 11:31] LABS: Glucose Point of Care 150 mg/dL (70-110)
--- NOTE | 2020-07-10 12:46 | PC.OT ---
OT note: Attempted OT eval. Pt unable to stay awake. Will attempt again later as able.
[2020-07-10 18:14] LABS: Glucose Point of Care 125 mg/dL (70-110)
[2020-07-11] MEDS: sodium chloride 0.9% 1,000 ML 50 ML IV (00:33)
[2020-07-11 02:42] LABS: Glucose Point of Care 167 mg/dL (70-110)
[2020-07-11 04:00] VITALS: BP 116/77; PULSE 70; RESP 21; TEMP 36.3; O2SAT 94
[2020-07-11 04:41] LABS: Anion Gap 19.2 (5-19); Blood Urea Nitrogen 22 mg/dL (8-23); Calcium 8.5 mg/dL (8.5-10.5); Carbon Dioxide 18 mmol/L (22-29); Chloride 104 mmol/L (98-107); Glucose 181 mg/dL (65-115); Osmolality Calculated 285 mOsm/kg (285-295); Potassium 4.2 mmol/L (3.5-5.1); Sodium 137 mmol/L (136-145)
[2020-07-11] MEDS: heparin 5,000 unit/mL INJ 1 mL 5000 UNIT SUBCUT (04:51)
[2020-07-11 07:18] LABS: Glucose Point of Care 123 mg/dL (70-110)
[2020-07-11 08:00] VITALS: BP 134/62; PULSE 68; RESP 20; TEMP 36.5; O2SAT 98
[2020-07-11] MEDS: sertraline 50 mg Tablet 25 MG PO (08:35)
[2020-07-11] MEDS: pantoprazole DR 40 mg Tablet PO (08:35)
[2020-07-11] MEDS: OLANZapine 5 mg TABLET 2.5 MG PO (08:35)
[2020-07-11] MEDS: donepezil 5 MG Tablet 10 MG PO (08:36)
[2020-07-11] MEDS: atorvastatin 40 mg Tablet 20 MG PO (08:36)
[2020-07-11 11:24] LABS: Glucose Point of Care 176 mg/dL (70-110)
--- NOTE | 2020-07-11 11:43 | PM.DCS ---
Discharge Providers Date of Admission: 07/10/20 04:21 Date of Discharge: July 11, 2020 Attending Provider at Admission: Heri Felipe MD Attending Provider at Discharge: Damaris Rodriguez DO Primary Care Provider: Nils Guerrero MD Diagnoses at Discharge Discharge Diagnosis (1) Dementia: Status: Acute (2) Depression: Status: Acute (3) Urinary retention: Status: Acute (4) Weakness: Status: Acute Reason for Visit Reason for Visit: CATH PROBLEMS Hospital Course Hospital Course: Patient was seen and evaluated in the emergency department noted to have increasing confusion with underlying dementia and behavioral disturbances. He was also noted to have traumatic removal of Reed catheter. Patient was placed on observation in the hospital and continued to show improvement with adjustments in medications. His Paxil was discontinued and his amitriptyline was discontinued. He was started on sertraline 25 mg daily and also after discussion with family including the risk and benefits of the medications he was started on Zyprexa 2.5 mg twice daily. Patient continued to do well with these medication adjustments was resting comfortably and did not have any further outbursts or behavioral disturbances. On date of discharge she was sitting up at the side of bed working with occupational therapy and denied any concerns. Called and discussed with patient's family over the phone and discussed the plan for returning to home with home health care, they denied any concerns and verbalized understanding of plan for discharge and medication adjustments. Physical Exam Const: COMMON NORMALS: no acute distress OTHER: Awake, confusion secondary to underlying dementia, reports that he is in a hospital but uncertain of the month or year HENMT: COMMON NORMALS: normocephalic and atraumatic HEAD & SCALP: normocephalic and atraumatic Resp: COMMON NORMALS: normal respiratory effort, No retractions, No use of accessory muscles and clear to auscultation bilaterally AUSCULTATION: clear to auscultation bilaterally OTHER: No appreciable wheezing or rhonchi Cardio: OTHER: Regular rate and rhythm, no appreciable murmur, normal peripheral perfusion with no significant lower extremity edema GI: OTHER: Soft, nontender, nondistended, normal bowel sounds : OTHER: Reed catheter in place Extremity: OTHER: No acute deformity, negative Homans sign in the lower extremities bilaterally, no appreciable edema in the lower extremities Neuro: OTHER: Patient is awake, when asked what his name or date of was he responded I cannot remember reported that he did not know the year and did not know the month. Moves all extremities appropriately, no slurred speech, no facial droop Psych: OTHER: Confusion with underlying dementia. Patient alert and cooperative during exam Skin: COMMON NORMALS: no rashes or lesions noted GENERAL SKIN EXAM: no rashes or lesions noted Urinary Catheter Management^: Reed: Cath Placed During This Visit: yes Reason for Continuing Indwelling Catheter: Chronic Indwelling Urinary Catheter on Admission Urinary Catheter Date of Insertion: 07/10/20 Urinary Catheter Time of Insertion: 03:26 Discharge Data Data Completed and Pending: Labs from last 24 hours 07/11/20 07/11/20 07/11/20 11:06 07:15 03:26 Sodium 137 Potassium 4.2 Chloride 104 Carbon Dioxide 18 L Anion Gap 19.2 H BUN 22 Creatinine 1.1 GFR Calculation Not Reportable Glucose 181 H POC Glucose 176 123 Calculated Osmolal ity 285 Calcium 8.5 07/10/20 07/10/20 20:07 18:12 Sodium Potassium Chloride Carbon Dioxide Anion Gap BUN Creatinine GFR Calculation Glucose POC Glucose 167 125 Calculated Osmolal ity Calcium Vitals: Last Vital Signs Temp 97.7 F 07/11/20 08:00 Pulse 68 07/11/20 08:00 Resp 20 H 07/11/20 08:00 BP 134/62 07/11/20 08:00 Pulse Ox 98 07/11/20 08:00 Discharge Plan Discharge Patient Disposition: Home Health Service Condition: Stable Prescriptions: New sertraline 50 mg Tablet 25 mg PO DAILY 30 Days Qty: 30 RF: 0 olanzapine 5 mg Tablet 2.5 mg PO BID 30 Days Qty: 30 RF: 0 Continued donepezil 10 mg tablet 10 mg PO DAILY RF: 0 simvastatin 40 mg tablet 40 mg PO DAILY RF: 0 glimepiride 2 mg tablet 2 mg PO DAILY RF: 0 metformin 1,000 mg tablet 1,000 mg PO BID RF: 0 omeprazole 20 mg capsule,delayed release(DR/EC) 20 mg PO DAILY RF: 0 montelukast 10 mg tablet 10 mg PO DAILY RF: 0 polyethylene glycol 3350 [ClearLax] 17 gram/dose powder 17 g PO DAILY PRN (Reason: Constipation) RF: 0 pioglitazone 30 mg tablet 30 mg PO DAILY RF: 0 cyanocobalamin (vitamin B-12) 1,000 mcg tablet extended release 1,000 mcg PO DAILY RF: 0 Discontinued ropinirole 1 mg tablet 1 mg PO BEDTIME RF: 0 amitriptyline 25 mg tablet 25 mg PO BEDTIME RF: 0 paroxetine HCl 40 mg tablet 40 mg PO DAILY RF: 0 doxycycline hyclate 100 mg capsule 100 mg PO BID RF: 0 cetirizine 10 mg tablet 10 mg PO BID PRN (Reason: Itching) RF: 0 Discharge Orders: Discharge Order (Routine); Ordered 07/11/20 Ordered By: Damaris Rodriguez Other Ambulatory Orders: DME: Hospital Bed (Order) Location: None Selected Ordered By: Damaris Rodriguez Referrals: Jono Taylor MD [Physician] - 1 week Nils Guerrero MD [Primary Care Provider] - 1-3 days Discharge Diet: Advance as tolerated Discharge Activity: Increase activity as tolerated and As per PT/OT instructions Activity Restrictions/Additional Instructions: Changes to home medications to help with behavioral disturbances Stop taking amitriptyline, stop taking paroxetine, stop taking Requip Started on Zyprexa 2.5 mg twice daily, started on sertraline 25 mg daily Follow-up with primary care provider in 3 to 5 days Follow-up with urology in 1 to 2 weeks or as previously scheduled. Continue with Reed catheter placement and care Continue to increase activity as directed by physical therapy and Occupational Therapy with home health Call your physician or present to the ED for any acute illness or concern Discharge Attestations Time Spent in Discharge Care*: greater than 30 min Specific Discharge Activities: Specific discharge activities: educating patient, educating and/or supporting family/caregiver, discussing with medical case manager/social workers/dc planners and documenting/other paperwork Quality Metrics Clinical Quality Measures During this hospital stay, did patient experience: None Coding Level of Care Code Acute Charge Histotechnologist for g Fwd Diagnoses Dementia F03.90 Depression F32.9 Urinary retention R33.9 Weakness R53.1
[2020-07-11 12:00] VITALS: BP 126/65; PULSE 68; RESP 20; TEMP 36.7; O2SAT 99
[2020-07-11 13:01] VITALS: BP 126/65; PULSE 68; RESP 20; TEMP 36.7; O2SAT 99
== END 2020-07-11 15:00 | disposition home health service (06) ==
LOC: ER 03:26 → CSU 05:20
PROVIDERS: Emergency Medicine; Admitting Provider Internal Medicine; Emergency Provider Family Medicine; PCP Family Medicine; Visit Provider Family Medicine
DX: F03.91 Unspecified dementia, unspecified severity, with behavioral disturbance (principal); F32.9 Major depressive disorder, single episode, unspecified; R53.1 Weakness; R33.9 Retention of urine, unspecified; N17.9 Acute kidney failure, unspecified; E11.9 Type 2 diabetes mellitus without complications; K21.9 Gastro-esophageal reflux disease without esophagitis; E78.5 Hyperlipidemia, unspecified; N13.30 Unspecified hydronephrosis; I25.10 Atherosclerotic heart disease of native coronary artery without angina pectoris; Z79.84 Long term (current) use of oral hypoglycemic drugs; Z79.899 Other long term (current) drug therapy
CPT/HCPCS: 12345; 36415; 36416; 51702; 80048; 80053; 82140; 82607; 82962; 83735; 85025; 96360; 96361; 96372; 97110; 97116; 97162; 97166; 97530; 99283; 99285; G0378; J1644; J1815; J7030

== ENCOUNTER → 2020-08-02 15:00 | Outpatient (BNVA) | payer MEDICARE, BC, SELFPAY | PROVIDERS: PCP Family Medicine; Visit Provider Nurse Practitioner Family | DX: R33.9 Retention of urine, unspecified (principal); R82.81 Pyuria | CPT/HCPCS: 80053; 81001; 87077; 87086; 87186 ==

== ENCOUNTER → 2020-10-09 17:02 | Outpatient (BNVA) | payer MEDICARE, BC, SELFPAY | PROVIDERS: PCP Family Medicine; Visit Provider Urology | DX: R33.9 Retention of urine, unspecified (principal); R82.81 Pyuria | CPT/HCPCS: 81003; 87077; 87086; 87184 ==

== ENCOUNTER → 2020-10-30 11:09 | Outpatient (BNVA) | payer MEDICARE, BC, SELFPAY | PROVIDERS: PCP Family Medicine; Visit Provider Urology | DX: N30.01 Acute cystitis with hematuria (principal) | CPT/HCPCS: 81003 ==

== ENCOUNTER → 2020-12-10 15:48 | Outpatient (BNVA) | payer MEDICARE, BC, SELFPAY | PROVIDERS: PCP Nurse Practitioner; Visit Provider Nurse Practitioner | DX: E11.9 Type 2 diabetes mellitus without complications (principal) | CPT/HCPCS: 80053; 80061; 83036; 85025 ==

== ENCOUNTER → 2020-12-12 11:09 | Outpatient (BNVA) | payer MEDICARE, BC, SELFPAY | PROVIDERS: PCP Nurse Practitioner; Visit Provider Nurse Practitioner | DX: I25.10 Atherosclerotic heart disease of native coronary artery without angina pectoris (principal); E11.9 Type 2 diabetes mellitus without complications | CPT/HCPCS: 71046; 82043 ==

== ENCOUNTER → 2021-03-12 12:00 | Outpatient (BNVA) | payer MEDICARE, BC, SELFPAY | PROVIDERS: PCP Nurse Practitioner; Visit Provider Nurse Practitioner | DX: E11.9 Type 2 diabetes mellitus without complications (principal); E55.9 Vitamin D deficiency, unspecified; F03.90 Unspecified dementia, unspecified severity, without behavioral disturbance, psychotic disturbance, mood disturbance, and anxiety; J30.2 Other seasonal allergic rhinitis; K21.9 Gastro-esophageal reflux disease without esophagitis; E78.5 Hyperlipidemia, unspecified | CPT/HCPCS: 80053; 80061; 82306; 82607; 83036; 84443; 85025 ==

== ENCOUNTER → 2021-03-20 10:29 | Outpatient (BNVA) | payer MEDICARE, BC, SELFPAY | PROVIDERS: PCP Nurse Practitioner; Visit Provider Nurse Practitioner | DX: E11.9 Type 2 diabetes mellitus without complications (principal); N30.01 Acute cystitis with hematuria | CPT/HCPCS: 74018; 81003; 87086 ==

== ENCOUNTER → 2021-06-06 11:06 | Outpatient (BNVA) | payer MEDICARE, BC, SELFPAY | PROVIDERS: PCP Nurse Practitioner; Visit Provider Nurse Practitioner | DX: E55.9 Vitamin D deficiency, unspecified (principal); E11.65 Type 2 diabetes mellitus with hyperglycemia; F32.9 Major depressive disorder, single episode, unspecified; K21.9 Gastro-esophageal reflux disease without esophagitis; E78.5 Hyperlipidemia, unspecified; F03.90 Unspecified dementia, unspecified severity, without behavioral disturbance, psychotic disturbance, mood disturbance, and anxiety | CPT/HCPCS: 80053; 82306; 83036 ==

== ENCOUNTER → 2021-07-30 11:21 | Outpatient (BNVA) | payer MEDICARE, BC, SELFPAY | PROVIDERS: PCP Nurse Practitioner; Visit Provider Nurse Practitioner | DX: E11.65 Type 2 diabetes mellitus with hyperglycemia (principal); F32.9 Major depressive disorder, single episode, unspecified; F03.90 Unspecified dementia, unspecified severity, without behavioral disturbance, psychotic disturbance, mood disturbance, and anxiety; E55.9 Vitamin D deficiency, unspecified; K21.9 Gastro-esophageal reflux disease without esophagitis; E78.2 Mixed hyperlipidemia; R53.1 Weakness | CPT/HCPCS: 80053; 85025 ==

== ENCOUNTER → 2021-07-31 10:39 | Outpatient (BNVA) | payer MEDICARE, BC, SELFPAY | PROVIDERS: PCP Nurse Practitioner; Visit Provider Nurse Practitioner | DX: E11.65 Type 2 diabetes mellitus with hyperglycemia (principal) | CPT/HCPCS: 81000 ==

== ENCOUNTER 2021-08-30 06:00 | Outpatient (RCR) | payer MEDICARE, BC, SELFPAY | END 2021-09-08 23:59 | disposition home or self-care (01) | LOC: APT 06:00 | PROVIDERS: PCP Nurse Practitioner; Referring Provider Nurse Practitioner; Visit Provider Nurse Practitioner | DX: R53.1 Weakness (principal) | CPT/HCPCS: 97110; 97163 ==

== ENCOUNTER 2021-09-03 16:37 | Observation (INO) | payer MEDICARE, BC, SELFPAY ==
[2021-09-03 17:05] VITALS: BP 149/84; PULSE 67; RESP 20; TEMP 36.4; O2SAT 98; BMI 33.0
[2021-09-03 20:02] VITALS: BP 148/96; PULSE 65; RESP 18; O2SAT 97
--- NOTE | 2021-09-03 20:54 | CTR_ITS ---
PROCEDURE INFORMATION: Exam: CT Head Without Contrast Exam date and time: 09/03/2021 8:54 PM Age: 81 years old Clinical indication: Altered mental status/memory loss and speech disturbance; Patient HX: AMS. Slurred speech. Scan repeated. Patient unable to keep still. Best exam submitted. ; Additional info: CVA TECHNIQUE: Imaging protocol: Computed tomography of the head without contrast. Radiation optimization: All CT scans at this facility use at least one of these dose optimization techniques: automated exposure control; mA and/or kV adjustment per patient size (includes targeted exams where dose is matched to clinical indication); or iterative reconstruction. COMPARISON: CT head wo con* [id number] 07/09/2020 9:10 PM RADIATION DOSE METRICS: Total DLP (mGy-cm): 1603.34 FINDINGS: Limitations: Motion artifact on exam provides some limitation to fine parenchymal evaluation. Brain: No hemorrhage. Mild diffuse cerebral atrophy. No mass effect. Cerebral ventricles: No ventriculomegaly. Paranasal sinuses: Visualized sinuses are unremarkable. No fluid levels. Mastoid air cells: Visualized mastoid air cells are well aerated. Bones/joints: Unremarkable. No acute fracture. Soft tissues: Unremarkable. CT/CT head wo con* [id number] IMPRESSION: No acute intracranial abnormality. Radiation Dose CTDIVOL = (mGy): DLP = 1603.34 (mGy-cm)
[2021-09-03 21:56] VITALS: BP 160/99; PULSE 68; RESP 18; O2SAT 98
[2021-09-03 22:00] VITALS: BP 130/80; PULSE 65; RESP 16; O2SAT 94
--- NOTE | 2021-09-03 22:48 | XRR_ITS ---
PROCEDURE INFORMATION: Exam: XR Chest Exam date and time: 09/03/2021 10:48 PM Age: 81 years old Clinical indication: Dyspnea TECHNIQUE: Imaging protocol: XR of the chest. Views: 1 view. COMPARISON: CR XR chest 2V* [id number] 12/12/2020 11:08 AM FINDINGS: Lungs: Unremarkable. No consolidation. Pleural spaces: Unremarkable. No pleural effusion. No pneumothorax. Heart/Mediastinum: Unremarkable. No cardiomegaly. Bones/joints: Unremarkable. XR/XR chest 1V portable [id number] IMPRESSION: No acute findings. Radiation Dose CTDIVOL = (mGy): DLP = (mGy-cm)
--- NOTE | 2021-09-03 22:49 | ECG_ITS ---
[facility] Test Date: 2021-09-03 Pat Name: Sheng Patiño Department: Room: EDIP Gender: Male Crm Consultant: : 1940 Requested By: Myranda Arroyo Order Number: [id number] Minoo MD: Og Lewis M.D. Measurements Intervals [place] Rate: 64 P: ME: QRS: -32 QRSD: 85 T: 10 QT: 368 QTc: 381 Interpretive Statements SINUS RHYTHM WITH HIGH GRADE AV BLOCK LEFT AXIS DEVIATION [QRS AXIS < -30] LOW QRS VOLTAGE IN PRECORDIAL LEADS [QRS DEFLECTION < 1.0 mV IN CHEST LEADS] POSSIBLE ANTERIOR MYOCARDIAL INFARCTION , PROBABLY OLD [30 ms Q WAVE IN V3/V4, OR R < 0.2 mV IN V4] CRITICAL TEST RESULT Compared to ECG 07/09/2020 20:16:50 Left-axis deviation now present Low QRS voltage now present Sinus arrhythmia no longer present Left anterior fascicular block no longer present T-wave abnormality no longer present Electronically Signed On 09-05-2021 1:24:13 CDT by Og Lewis M.D. [email or web address]
[2021-09-03 22:54] LABS: Basophils % 0.5 %; Eosinophils # 0.2 10^3/uL (0.0-0.8); Eosinophils % 3.5 %; Hematocrit 38.5 % (42.0-52.0); Hemoglobin 11.9 g/dL (11.7-16.6); Lymphocytes # 1.5 10^3/uL (0.8-4.8); Lymphocytes % 24.4 %; Mean Corpuscular HGB Conc 30.9 g/dL (30.0-36.0); Mean Corpuscular Hemoglobin 29.4 pg (28.0-34.0); Mean Corpuscular Volume 95.1 fl (80-94); Mean Platelet Volume 12.4 fL (7.4-10.4); Monocytes # 0.5 10^3/uL (0.2-0.9); Monocytes % 8.4 %; Neutrophils # 3.96 10^3/uL (1.8-7.7); Nucleated Red Blood Cells % 0 %; Platelet Count 109 10^3/cmm (130-400); Red Blood Count 4.05 10^6/uL (4.1-5.3); Red Cell Distribution Width 14.5 % (12.1-15.1); White Blood Count 6.3 10^3/uL (4.0-10.0)
[2021-09-03 23:00] VITALS: BP 136/70; PULSE 68; RESP 18; O2SAT 96
[2021-09-03 23:06] LABS: Alanine Aminotransferase 18 U/L (0-41); Albumin Level 4.1 g/dL (3.5-5.2); Alkaline Phosphatase 62 IU/L (40-130); Aspartate Amino Transferase 23 U/L (0-40); Blood Urea Nitrogen 21 mg/dL (8-23); Carbon Dioxide 23 mmol/L (22-29); Chloride 104 mmol/L (98-107); Globulin 3.6 g/dL (1.3-4.6); Glucose 111 mg/dL (65-115); Lipase 54 U/L (13-60); Osmolality Calculated 292 mOsm/kg (285-295); Sodium 139 mmol/L (136-145); Total Bilirubin 0.4 mg/dL (0.15-1.2); Total Protein 7.7 g/dL (6.6-8.7); Troponin(5th) Baseline 27 ng/L (0-15)
[2021-09-03 23:20] LABS: Anion Gap 16.9 (5-19); Potassium 4.9 mmol/L (3.5-5.1)
--- NOTE | 2021-09-03 23:43 | ED_ITS ---
Documented by User: Myranda Arroyo MD 09/05/21 22:57 HPI - General Adult General: Chief complaint: ER Hold Stated complaint: SLURRED SPEECH,WEAK,INCREASED CONFUSION Time Seen by Provider: 09/03/21 21:27 History of Present Illness: HPI narrative: CC: AMS HPI: [81]yo patient w/ baseline dementia, DM c/b UTI PMH BIBA for altered mental status. Per son, patient has become more altered for the last 2 days. At baseline, patient is able to converse and follow commands. Onset: Unknown Duration: ongoing, unclear duration Location: home Severity: severe Review of Systems Narrative: REVIEW OF SYSTEMS unable to obtain due to current cognitive status PFSH ED PFSH: Medical History (Updated 09/04/21 @ 06:51 by Danuta Valadez MD) Acid reflux Ambulates with cane Coronary artery disease Dementia Depression Diabetes Hydronephrosis, left Hyperlipidemia Seasonal and perennial allergic rhinitis Urinary retention Vitamin D deficiency Surgical History History of hip replacement, total History of PTCA Hx of hernia repair Family History Brother Diabetes Father , at age 82 CHF (congestive heart failure) Mother , at age 93 Heart disease Other CAD (coronary artery disease) Dementia Hypertension Stroke Denies family history of Cancer Social History (Updated 09/04/21 @ 06:42 by Danuta Valadez MD) Smoking and tobacco status: never smoked Alcohol intake: never Adopted: No Caregiver/support person: Yes Lives independently: No Household members: family Housing: House Marital status: / Number of children: 6 service: No Current occupational status: retired Current gender identity: Male Physical Exam Narrative: EXAM NARRATIVE: Head: Atraumatic Eyes: PERRL, conjunctiva without injection ENT: Mucous membrane moist NECK: Supple without lymphadenopathy LUNGS: LCTAB CV: RRR ABDOMEN: Soft, nontender EXTREMITY: Normal ROM SKIN: No rash or erythema, no signs of track marcial, no visible patches, no noticeable cellulitis NEURO: Somnolent but arousable, moving all extremities, GCS of 14 (confused by occasionally coherent) PSYCH: Somnolent unable to fully assess at this time Course Vital Signs: Vital signs: Vital Signs Temperature 97.8 F 10/28/21 20:00 Pulse Rate 73 09/05/21 20:00 Respiratory Rate 18 09/05/21 20:00 Blood Pressure 128/68 09/05/21 20:00 Pulse Oximetry 94 09/05/21 20:00 MDM - General Adult MDM Narrative: Medical decision making narrative: [81]yo patient w/ hx of DM c/b hx of UTI BIBA for AMS. HDS, GCS of 14 (confusion) DDx broad including intracranial injuries, metabolic phenomenon, substance intoxication/withdrawal, and sepsis. Toxidrome Findings: Negative. No rigidity or clonus of LE ankle/knee reflexes, no diaphoresis, pupils mid-ranged equal and reactive to light, no signs of track marcial/body patches, normal bowel sounds, and bladder non-palpable/ non- distended. EKG: EKG: Normal Sinus Rhythm. No overt ischemic findings and no prolongation of QTc or QRS intervals. No signs of hyperkalemia (peaked T waves, QRS widening, and MD prolongation) Workup: CBC, CMP, lipase, UA, XR chest, CT brain, EKG, troponin CT brain negative for any acute findigns. No leukocytosis. Troponin of 27, pending repeat troponin. Case signed out to Dr. Tavarez Lab Data: Labs: Lab Results 09/03/21 09/03/21 09/03/21 21:35 21:35 21:35 WBC 6.3 10^3/uL 10^3/ uL (4.0-10.0) RBC 4.05 10^6/uL L 10 ^6/uL (4.1-5.3) Hgb 11.9 g/dL g/dL (11.7-16.6) Hct 38.5 % L % (42.0-52.0) MCV 95.1 fl H fl (80-94) MCH 29.4 pg pg (28.0-34.0) MCHC 30.9 g/dL g/dL (30.0-36.0) RDW 14.5 % % (12.1-15.1) Plt Count 109 10^3/cmm L 10 ^3/cmm (130-400) MPV 12.4 fL H fL (7.4-10.4) Neut % (Auto) 63.0 % % Lymph % (Auto) 24.4 % % [place] % (Auto) 8.4 % % Eos % (Auto) 3.5 % % Baso % (Auto) 0.5 % % Neut # (Auto) 3.96 10^3/uL 10^3 /uL (1.8-7.7) Lymph # (Auto) 1.5 10^3/uL 10^3/ uL (0.8-4.8) [place] # (Auto) 0.5 10^3/uL 10^3/ uL (0.2-0.9) Eos # (Auto) 0.2 10^3/uL 10^3/ uL (0.0-0.8) Baso # (Auto) 0.0 10^3/uL 10^3/ uL (0.0-0.1) Nucleated RBC % (a uto) 0 % % Nucleated RBCs # 0.0 /100WBC /100W BC Sodium 139 mmol/L mmol/L (136-145) Potassium 4.9 mmol/L mmol/L (3.5-5.1) Chloride 104 mmol/L mmol/L (98-107) Carbon Dioxide 23 mmol/L mmol/L (22-29) Anion Gap 16.9 (5-19) BUN 21 mg/dL mg/dL (8-23) Creatinine 1.2 mg/dL mg/dL (0.7-1.2) GFR Calculation Not Reportable Glucose 111 mg/dL mg/dL (65-115) Calculated Osmolal ity 292 mOsm/kg mOsm/ kg (285-295) Calcium 9.0 mg/dL mg/dL (8.5-10.5) Total Bilirubin 0.4 mg/dL mg/dL (0.15-1.2) AST 23 U/L U/L (0-40) ALT 18 U/L U/L (0-41) Alkaline Phosphata se 62 IU/L IU/L (40-130) Troponin T Baselin e 27 ng/L H ng/L (0-15) Troponin T [address] [place] Troponin T Total Protein 7.7 g/dL g/dL (6.6-8.7) Albumin 4.1 g/dL g/dL (3.5-5.2) Globulin 3.6 g/dL g/dL (1.3-4.6) Lipase 54 U/L U/L (13-60) Urine Color Urine Appearance Urine pH Ur Specific Gravit y Urine Protein Urine Glucose (UA) Urine Ketones Urine Blood Urine Nitrate Urine Bilirubin Urine Urobilinogen Ur Leukocyte Lilli ase 09/03/21 09/04/21 23:37 00:00 WBC RBC Hgb Hct MCV MCH MCHC RDW Plt Count MPV Neut % (Auto) Lymph % (Auto) [place] % (Auto) Eos % (Auto) Baso % (Auto) Neut # (Auto) Lymph # (Auto) [place] # (Auto) Eos # (Auto) Baso # (Auto) Nucleated RBC % (a uto) Nucleated RBCs # Sodium Potassium Chloride Carbon Dioxide Anion Gap BUN Creatinine GFR Calculation Glucose Calculated Osmolal ity Calcium Total Bilirubin AST ALT Alkaline Phosphata se Troponin T Baselin e Troponin T [address] [place] 26.76 ng/L H ng/L (0-15) Delta Troponin T -0.24 ABS# L ABS# (0-10) Total Protein Albumin Globulin Lipase Urine Color Yellow (Yellow) Urine Appearance Clear (CLEAR) Urine pH 5 (5-7) Ur Specific Gravit y 1.010 (1.005-1.030) Urine Protein Neg (Negative) Urine Glucose (UA) Norm (Normal) Urine Ketones Negative (Negative) Urine Blood Neg (Negative) Urine Nitrate Negative (Negative) Urine Bilirubin Neg (Negative) Urine Urobilinogen Norm mg/dL mg/dL (Negative) Ur Leukocyte Lilli ase Negative (Negative) Imaging Data^: Other Imaging: Radiologist's impression: [address] [place] [id number] ReportSigned Patient: Sheng Patiño CUnfelicia #: [id number]: 8Acct#:[id number]/Sex: 81 / MADM Date: 09/03/21Loc: [facility] m/Bed:Attending Dr: Ordering Provider/Ordering MD: Myranda Arroyo MD Date of Service: 09/03/21 Procedure(s): XR chest 1V portable [id number] Accession Number(s): [id number] Report Number: [id number] PROCEDURE INFORMATION: Exam: XR Chest Exam date and time: 09/03/2021 10:48 PM Age: 81 years old Clinical indication: Dyspnea TECHNIQUE: Imaging protocol: XR of the chest. Views: 1 view. COMPARISON: CR XR chest 2V* [id number] 12/12/2020 11:08 AM FINDINGS: Lungs: Unremarkable. No consolidation. Pleural spaces: Unremarkable. No pleural effusion. No pneumothorax. Heart/Mediastinum: Unremarkable. No cardiomegaly. Bones/joints: Unremarkable. XR/XR chest 1V portable [id number] IMPRESSION: No acute findings. Radiation Dose CTDIVOL = (mGy): DLP = (mGy-cm) Dictated By:Layne Abadigned By:Sherri Abad Date/Time:09/03/21 2352DD/ [address] [id number] Scan ReportSigned Patient: Sheng Patiño #: [id number]: 0 8Acct#:[id number]/Sex: 81 / MADM Date: 09/03/21Loc: [facility]oom/Bed:Attending Dr: Ordering Provider/Ordering MD: Yuniel Tavarez MD Date of Service: 09/03/21 Procedure(s): CT head wo con* [id number] Accession Number(s): [id number] Report Number: [id number] PROCEDURE INFORMATION: Exam: CT Head Without Contrast Exam date and time: 09/03/2021 8:54 PM Age: 81 years old Clinical indication: Altered mental status/memory loss and speech disturbance; Patient HX: AMS. Slurred speech. Scan repeated. Patient unable to keep still. Best exam submitted. ; Additional info: CVA TECHNIQUE: Imaging protocol: Computed tomography of the head without contrast. Radiation optimization: All CT scans at this facility use at least one of these dose optimization techniques: automated exposure control; mA and/or kV adjustment per patient size (includes targeted exams where dose is matched to clinical indication); or iterative reconstruction. COMPARISON: CT head wo con* [id number] 07/09/2020 9:10 PM RADIATION DOSE METRICS: Total DLP (mGy-cm): 1603.34 FINDINGS: Limitations: Motion artifact on exam provides some limitation to fine parenchymal evaluation. Brain: No hemorrhage. Mild diffuse cerebral atrophy. No mass effect. Cerebral ventricles: No ventriculomegaly. Paranasal sinuses: Visualized sinuses are unremarkable. No fluid levels. Mastoid air cells: Visualized mastoid air cells are well aerated. Bones/joints: Unremarkable. No acute fracture. Soft tissues: Unremarkable. CT/CT head wo con* [id number] IMPRESSION: No acute intracranial abnormality. Radiation Dose CTDIVOL = (mGy): DLP = 1603.34 (mGy-cm) Dictated By:Randy Arnold DOSigned By:Randy Arnold DOSigned Date/Time:09/03/212148DD/ 53 Discharge Plan Discharge Patient Disposition: Admitted As Inpatient Admit Provider: Danuta Valadez Clinical Impression: Elevated troponin Altered mental status Qualifiers: Altered mental status type: somnolence Qualified Code(s): R40.0 - Somnolence Condition: Stable Coding Level of Care Code ED Regional Transportation Manager for Chg Fwd Documented by User: Yuniel Tavarez MD 09/04/21 01:25 HPI - General Adult General: Chief complaint: ER Hold Stated complaint: SLURRED SPEECH,WEAK,INCREASED CONFUSION Time Seen by Provider: 09/03/21 21:27 [facility] ED PFSH: Medical History (Updated 09/04/21 @ 06:51 by Danuta Valadez MD) Acid reflux Ambulates with cane Coronary artery disease Dementia Depression Diabetes Hydronephrosis, left Hyperlipidemia Seasonal and perennial allergic rhinitis Urinary retention Vitamin D deficiency Surgical History History of hip replacement, total History of PTCA Hx of hernia repair Family History Brother Diabetes Father , at age 82 CHF (congestive heart failure) Mother , at age 93 Heart disease Other CAD (coronary artery disease) Dementia Hypertension Stroke Denies family history of Cancer Social History (Updated 09/04/21 @ 06:42 by Danuta Valadez MD) Smoking and tobacco status: never smoked Alcohol intake: never Adopted: No Caregiver/support person: Yes Lives independently: No Household members: family Housing: House Marital status: / Number of children: 6 service: No Current occupational status: retired Current gender identity: Male Course Vital Signs: Vital signs: Vital Signs Temperature 97.8 F 09/05/21 20:00 Pulse Rate 73 09/05/21 20:00 Respiratory Rate 18 09/05/21 20:00 Blood Pressure 128/68 09/05/21 20:00 Pulse Oximetry 94 09/05/21 20:00 MDM - General Adult MDM Narrative: Medical decision making narrative: Patient presents with altered male status family states they are unable to take care of him he is u nable to take care for himself they are requesting palliative care or fci I took patient over from Dr. Arroyo will admit for observation likely have case management evaluate Lab Data: Labs: Lab Results 09/03/21 09/03/21 09/03/21 21:35 21:35 21:35 WBC 6.3 10^3/uL 10^3/ uL (4.0-10.0) RBC 4.05 10^6/uL L 10 ^6/uL (4.1-5.3) Hgb 11.9 g/dL g/dL (11.7-16.6) Hct 38.5 % L % (42.0-52.0) MCV 95.1 fl H fl (80-94) MCH 29.4 pg pg (28.0-34.0) MCHC 30.9 g/dL g/dL (30.0-36.0) RDW 14.5 % % (12.1-15.1) Plt Count 109 10^3/cmm L 10 ^3/cmm (130-400) MPV 12.4 fL H fL (7.4-10.4) Neut % (Auto) 63.0 % % Lymph % (Auto) 24.4 % % [place] % (Auto) 8.4 % % Eos % (Auto) 3.5 % % Baso % (Auto) 0.5 % % Neut # (Auto) 3.96 10^3/uL 10^3 /uL (1.8-7.7) Lymph # (Auto) 1.5 10^3/uL 10^3/ uL (0.8-4.8) [place] # (Auto) 0.5 10^3/uL 10^3/ uL (0.2-0.9) Eos # (Auto) 0.2 10^3/uL 10^3/ uL (0.0-0.8) Baso # (Auto) 0.0 10^3/uL 10^3/ uL (0.0-0.1) Nucleated RBC % (a uto) 0 % % Nucleated RBCs # 0.0 /100WBC /100W BC Sodium 139 mmol/L mmol/L (136-145) Potassium 4.9 mmol/L mmol/L (3.5-5.1) Chloride 104 mmol/L mmol/L (98-107) Carbon Dioxide 23 mmol/L mmol/L (22-29) Anion Gap 16.9 (5-19) BUN 21 mg/dL mg/dL (8-23) Creatinine 1.2 mg/dL mg/dL (0.7-1.2) GFR Calculation Not Reportable Glucose 111 mg/dL mg/dL (65-115) Calculated Osmolal ity 292 mOsm/kg mOsm/ kg (285-295) Calcium 9.0 mg/dL mg/dL (8.5-10.5) Total Bilirubin 0.4 mg/dL mg/dL (0.15-1.2) AST 23 U/L U/L (0-40) ALT 18 U/L U/L (0-41) Alkaline Phosphata se 62 IU/L IU/L (40-130) Troponin T Baselin e 27 ng/L H ng/L (0-15) Troponin T [address] [place] Troponin T Total Protein 7.7 g/dL g/dL (6.6-8.7) Albumin 4.1 g/dL g/dL (3.5-5.2) Globulin 3.6 g/dL g/dL (1.3-4.6) Lipase 54 U/L U/L (13-60) Urine Color Urine Appearance Urine pH Ur Specific Gravit y Urine Protein Urine Glucose (UA) Urine Ketones Urine Blood Urine Nitrate Urine Bilirubin Urine Urobilinogen Ur Leukocyte Lilli ase 09/03/21 09/04/21 23:37 00:00 WBC RBC Hgb Hct MCV MCH MCHC RDW Plt Count MPV Neut % (Auto) Lymph % (Auto) [place] % (Auto) Eos % (Auto) Baso % (Auto) Neut # (Auto) Lymph # (Auto) [place] # (Auto) Eos # (Auto) Baso # (Auto) Nucleated RBC % (a uto) Nucleated RBCs # Sodium Potassium Chloride Carbon Dioxide Anion Gap BUN Creatinine GFR Calculation Glucose Calculated Osmolal ity Calcium Total Bilirubin AST ALT Alkaline Phosphata se Troponin T Baselin e Troponin T [address] [place] 26.76 ng/L H ng/L (0-15) Delta Troponin T -0.24 ABS# L ABS# (0-10) Total Protein Albumin Globulin Lipase Urine Color Yellow (Yellow) Urine Appearance Clear (CLEAR) Urine pH 5 (5-7) Ur Specific Gravit y 1.010 (1.005-1.030) Urine Protein Neg (Negative) Urine Glucose (UA) Norm (Normal) Urine Ketones Negative (Negative) Urine Blood Neg (Negative) Urine Nitrate Negative (Negative) Urine Bilirubin Neg (Negative) Urine Urobilinogen Norm mg/dL mg/dL (Negative) Ur Leukocyte Lilli ase Negative (Negative) Discharge Plan Discharge Patient Disposition: Admitted As Inpatient Admit Provider: Danuta Valadez Clinical Impression: Elevated troponin Altered mental status Qualifiers: Altered mental status type: somnolence Qualified Code(s): R40.0 - Somnolence Condition: Stable Coding Level of Care Code ED Regional Transportation Manager for Luis Enrique Ward
[2021-09-04 00:11] LABS: Troponin 5 2HR 26.76 ng/L (0-15); Troponin 5 2HR Delta -0.24 ABS# (0-10)
[2021-09-04 01:01] LABS: Add Urine Microscopic? NO; Charge for UA Resulting for Rev
[2021-09-04 01:08] LABS: Urine Color Yellow (Yellow)
[2021-09-04 01:09] LABS: Bilirubin Urine Neg (Negative); Blood Urine Neg (Negative); Glucose Urine UA Norm (Normal); Ketones Urine Negative (Negative); Leukocyte Esterase Urine Negative (Negative); Nitrate Urine Negative (Negative); Protein Urine Neg (Negative); Urine Appearance Clear (CLEAR); Urobilinogen Urine Norm (Negative); pH Urine 5 (5-7)
[2021-09-04 03:32] LABS: Troponin 5 6HR 35.27 ng/L (0-15); Troponin 5 6HR Delta 8.27 ng/L (0-12)
--- NOTE | 2021-09-04 04:49 | ECG_ITS ---
[facility] Test Date: 2021-09-04 Pat Name: Sheng Patiño Department: Room: EDIP Gender: Male Sales And Service Consultant: : 1940 Requested By: Myranda Arroyo Order Number: [id number] Minoo MD: Og Lewis M.D. Measurements Intervals [place] Rate: 70 P: 125 MO: 253 QRS: -35 QRSD: 86 T: 15 QT: 387 QTc: 420 Interpretive Statements SINUS RHYTHM WITH FIRST DEGREE AV BLOCK WITH OCCASIONAL SUPRAVENTRICULAR PREMATURE COMPLEXES LEFT AXIS DEVIATION [QRS AXIS < -30] LOW QRS VOLTAGE IN PRECORDIAL LEADS [QRS DEFLECTION < 1.0 mV IN CHEST LEADS] POSSIBLE ANTERIOR MYOCARDIAL INFARCTION , PROBABLY OLD [30 ms Q WAVE IN V3/V4, OR R < 0.2 mV IN V4] Compared to ECG 09/03/2021 21:04:37 First degree AV block now present Myocardial infarct finding still present Electronically Signed On 09-05-2021 1:27:19 CDT by Og Lewis M.D. [id number]
--- NOTE | 2021-09-04 06:04 | PM.HP ---
Providers/Chief Complaint Admitting Physician: Danuta Valadez MD Primary Care Provider: Luis Angel Knight, MIKI-Vivien Chief Complaint: SLURRED SPEECH,WEAK,INCREASED CONFUSION History of Present Illness Sheng Patiño is a 81 year old male with a history of dementia who presented to the emergency room with several days of increasing weakness, somnolence, confusion and possibly speech abnormalities. I am not able to get history directly from family this evening but according to ER physicians and nursing staff family reported worsening symptoms from baseline for 2 days. [place] Coma Scale upon arrival to the emergency room is documented it being 14. No report of any injury described. No focal neurological deficits described. Work-up included a CT of the head that was unremarkable for acute abnormalities. Initial troponin was beyond normal range at 27 but below patient's previous troponin baseline levels. 2-hour troponin was unremarkable for a delta. EKG did not show acute changes. Urinalysis was also normal as was white count. Patient had last been seen by his primary care provider, Luis Angel Knight, on August 27. At that time he had a cut on his right great toe from a pocket knife. He complained of being tired, short of breath with some swelling in his ankles and legs, heartburn and diarrhea, various joint pains, difficulty walking and weakness. Was described at that time is having some slurred speech and difficulty communicating thoughts and available records. He was continued on usual medications and given a prescription for Keflex for the foot wound. In the emergency room patient remained somnolent and not back to his baseline. According to emergency room physician, family did not feel like they could care for him in his current state. He was admitted for further evaluation and treatment as indicated. History is obtained from a combination of discussion with ER staff, review of current and prior available electronic records. Patient was able to tell me that he is not hurting right now and that he is in the hospital but did not answer any other questions. Review of Systems General: Reports: ROS unobtainable due to mental status Medications/Allergies Home Medications Medication Instructions Recorded Confirmed Last Taken Type cyanocobalamin (vitamin B-12) 1,000 mcg PO DAILY 07/10/20 08/27/21 Unknown History apple cider vinegar 600 mg capsule mg PO DAILY cap 04/29/21 08/27/21 Unknown History tamsulosin 0.4 mg capsule See Rx Instructions .ROUTE 07/17/21 08/27/21 Unknown Rx .COMPLEX #30 cap donepezil 10 mg tablet 10 mg PO DAILY #30 tab 07/30/21 08/27/21 Unknown Rx ergocalciferol (vitamin D2) 1,250 1,250 mcg PO .weekly #4 cap 07/30/21 08/27/21 Unknown Rx mcg (50,000 unit) capsule glimepiride 2 mg tablet 2 mg PO DAILY #30 tab 07/30/21 08/27/21 Unknown Rx guaifenesin 600 mg tablet, 600 mg PO BID #60 tab 07/30/21 08/27/21 Unknown Rx extended release 12 hr metformin 500 mg tablet,extended 2,000 mg PO DAILY #120 tab 07/30/21 08/27/21 Unknown Rx release 24 hr montelukast 10 mg tablet 10 mg PO DAILY #30 tab 07/30/21 08/27/21 Unknown Rx olanzapine 10 mg tablet 10 mg PO DAILY #30 tab 07/30/21 08/27/21 Unknown Rx olopatadine 0.1 % eye drops 1 drp OPHTHALMIC (EYE) BID #5 ml 07/30/21 08/27/21 Unknown Rx omeprazole 20 mg capsule,delayed 20 mg PO DAILY #30 cap 07/30/21 08/27/21 Unknown Rx release pioglitazone 30 mg tablet 30 mg PO DAILY #30 tab 07/30/21 08/27/21 Unknown Rx simvastatin 40 mg tablet 40 mg PO DAILY #30 tab 07/30/21 08/27/21 Unknown Rx trazodone 50 mg tablet 50 mg PO .at bedtime #30 tab 08/05/21 08/27/21 Unknown Rx cephalexin 750 mg capsule 750 mg PO BID #20 cap 08/27/21 08/27/21 Unknown Rx mirtazapine 15 mg tablet 15 mg PO DAILY #30 tab 08/27/21 08/27/21 Unknown Rx mupirocin 2 % topical ointment 1 applic TOPICAL BID #22 g 08/27/21 08/27/21 Unknown Rx Allergies Allergy/AdvReac Type Severity Reaction Status Date / Time No Known Allergies Allergy Verified 09/03/21 17:11 PFSH Acute PFSH: Medical History (Updated 09/04/21 @ 06:51 by Danuta Valadez MD) Acid reflux Ambulates with cane Coronary artery disease Dementia Depression Diabetes Hydronephrosis, left Hyperlipidemia Seasonal and perennial allergic rhinitis Urinary retention Vitamin D deficiency Surgical History History of hip replacement, total History of PTCA Hx of hernia repair Family History Brother Diabetes Father , at age 82 CHF (congestive heart failure) Mother , at age 93 Heart disease Other CAD (coronary artery disease) Dementia Hypertension Stroke Denies family history of Cancer Social History (Updated 09/04/21 @ 06:42 by Danuta Valadez MD) Smoking and tobacco status: never smoked Alcohol intake: never Adopted: No Caregiver/support person: Yes Lives independently: No Household members: family Housing: House Marital status: / Number of children: 6 service: No Current occupational status: retired Current gender identity: Male Vitals/I&O/Wt Last Vital Signs Temp 97.6 F 09/03/21 17:05 Pulse 68 09/03/21 23:00 Resp 18 09/03/21 23:00 BP 136/70 09/03/21 23:00 Pulse Ox 96 09/03/21 23:00 Weight last 48 hrs Weight 119.748 kg Physical Exam Narrative: EXAM NARRATIVE: Constitutional: Asleep, arouses with stimulation and will answer simple questions but quick to fall back asleep, oriented to place and person HEENT: Normocephalic, pupils are equal reactive bilaterally, nasopharynx is clear, oropharynx with slightly dry mucous membranes but otherwise clear Neck: Supple Respiratory: Clear to auscultation bilaterally without any rales or wheezes noted Cardiovascular: Regular rate and rhythm, no JVD, no murmurs Abdomen: Soft, nontender, positive bowel sounds : Normal external genitalia Extremities: 1+ edema bilaterally, most notable at the ankles, no warmth or erythema noted at knees or ankles, no calf tenderness noted Skin: Chronic stasis changes to lower extremities, skin is dry, no rashes Neuro: Face is symmetric, speech is understandable, handgrip is equal, moves both lower extremities, out when asleep does have myoclonic jerks most notable at the feet but also notable in both hands, toes are equivocal Psych: Flat affect Data : 09/03/21 21:35 09/03/21 21:35 A&P Assessment and plan (1) Altered mental status: Over the last few days similar to times in the past when patient has had urinary tract infection or similar abnormalities by limited information currently available to me. Urine specimen in the emergency room was clear. White count is normal. Initial troponin was elevated but similar to prior values with negative delta. Moving all extremities without definitive focal deficit beyond mentation. Myoclonic jerks are noted with patient sleeping but review of old records indicates this is not a new abnormality. He has dementia which limits evaluation. In the past has had a component of depression potentially contributing but unable to ascertain if contributing element this time. No report of any fever. No nuchal rigidity, no obvious areas of pain. Has recently been on Keflex for a sore on his right foot. Current etiology is unclear beyond his known dementia and depression.. Status: Acute Qualifiers: Altered mental status type: somnolence Qualified Code(s): R40.0 - Somnolence (2) Coronary artery disease: No reported complaints of chest pain, initial troponin without positive delta, EKG similar to prior studies Status: Chronic Qualifiers: Coronary Disease-Associated Artery/Lesion type: [place] artery [place] vs. transplanted heart: [place] heart Associated angina: without angina Qualified Code(s): I25.10 - Atherosclerotic heart disease of [place] coronary artery without angina pectoris (3) Diabetes mellitus: Looks to chronically be on glimepiride, pioglitazone, Metformin Status: Chronic Qualifiers: Diabetes mellitus type: type 2 Diabetes mellitus terminal press operator insulin use: without chcf use Diabetes mellitus complication status: with hyperglycemia Qualified Code(s): E11.65 - Type 2 diabetes mellitus with hyperglycemia (4) Hyperlipidemia: Chronically on statin therapy Status: Chronic Qualifiers: Hyperlipidemia type: mixed hyperlipidemia Qualified Code(s): E78.2 - Mixed hyperlipidemia (5) Urinary retention: Has required Reed catheter in the past, chronically on Metformin Status: Chronic (6) Dementia: Chronically on Aricept and olanzapine Status: Chronic (7) Depression: Chronically on mirtazapine as well as trazodone with sleep Status: Chronic Additional A&P Information Thrombocytopenia which does not appear to be a new problem on review of prior labs Seasonal allergies and sinus congestion on Singulair and guaifenesin Chronically on PPI Observation admission Serial cardiac enzymes to be completed Serial neuro exams Check ammonia level and ABG Recheck electrolytes Check procalcitonin and CRP TSH was checked earlier this year and was normal Sliding-scale insulin currently for diabetes Low rate IV fluids Monitor urine output for evidence of retention Address home medications as soon as we can get list from family Once family is available get more clarification about changes recently PPI for GI prophylaxis SCDs for DVT prophylaxis Case management to assist with discharge planning Currently anticipate discharge back home with family although there was a question brought up by ER provider possibly other discharge plans Supportive care otherwise Review of available records shows that last CODE STATUS entered was allow natural in July of last year; have not been able to clarify with family so no CODE STATUS is currently ordered Attestations Medical Necessity Statement*: Currently anticipated stay less than 2 midnights in a gentleman with dementia and other comorbid conditions as noted presenting with alteration in mental status. Work-up in the emergency room thus far is really unrevealing so symptoms could simply be progression of dementia and/or depression. Nevertheless mentation is worse than than usual described baseline currently. Plans are as indicated. Coding Level of Care Code Acute Card Feeder for Margueriteg Fwd Diagnoses Altered mental status R40.0 Altered mental status type: somnolence Coronary artery disease I25.10 Coronary Disease-Associated Artery/Lesion type: [place] artery [place] vs. transplanted heart: [place] heart Associated angina: without angina Diabetes mellitus E11.65 Diabetes mellitus type: type 2 Diabetes mellitus chcf insulin use: without terminal press operator use Diabetes mellitus complication status: with hyperglycemia Hyperlipidemia E78.2 Hyperlipidemia type: mixed hyperlipidemia Urinary retention R33.9 Dementia F03.90 Depression F32.9
[2021-09-04 06:18] VITALS: BP 174/87; PULSE 62; RESP 18; O2SAT 92
--- NOTE | 2021-09-04 06:20 | PC.NURSE ---
Pt resting. No distress noted. Awaiting admit room
--- NOTE | 2021-09-04 07:53 | PC.PHAR ---
pts daughter in law kari [phone] states she takes care of the pts medications-kari verified pts medications
[2021-09-04] MEDS: sodium chloride 0.9% 1,000 ML 75 ML IV (09:43)
[2021-09-04] MEDS: insulin lispro 100 unit/1 mL SUBCUT ×3 (09:45→21:33)
[2021-09-04] MEDS: pantoprazole DR 40 mg Tablet PO (09:45)
[2021-09-04 09:49] VITALS: BP 117/85; PULSE 62; RESP 17; O2SAT 94
[2021-09-04 09:50] LABS: Glucose Point of Care 202 mg/dL (70-110)
[2021-09-04 10:35] LABS: Basophils % 0.4 %; Eosinophils # 0.2 10^3/uL (0.0-0.8); Eosinophils % 3.6 %; Hematocrit 37.7 % (42.0-52.0); Hemoglobin 11.5 g/dL (11.7-16.6); Lymphocytes % 20.9 %; Mean Corpuscular HGB Conc 30.5 g/dL (30.0-36.0); Mean Corpuscular Hemoglobin 29.4 pg (28.0-34.0); Mean Corpuscular Volume 96.4 fl (80-94); Monocytes # 0.4 10^3/uL (0.2-0.9); Monocytes % 7.4 %; Neutrophils % 67.5 %; Nucleated Red Blood Cells % 0 %; Platelet Count 92 10^3/cmm (130-400); Red Blood Count 3.91 10^6/uL (4.1-5.3); Red Cell Distribution Width 14.5 % (12.1-15.1); White Blood Count 4.7 10^3/uL (4.0-10.0)
[2021-09-04 10:52] LABS: Ammonia 26 umol/L (16-60)
[2021-09-04 10:57] LABS: Blood Urea Nitrogen 21 mg/dL (8-23); C Reactive Protein 2.9 mg/L (0.0-4.9); Carbon Dioxide 23 mmol/L (22-29); Chloride 101 mmol/L (98-107); Glucose 201 mg/dL (65-115); Magnesium 1.9 mg/dL (1.7-2.3); Osmolality Calculated 287 mOsm/kg (285-295); Phosphorus 3.5 mg/dL (2.5-4.5); Sodium 134 mmol/L (136-145)
[2021-09-04 11:04] LABS: Anion Gap 14.7 (5-19); Potassium 4.7 mmol/L (3.5-5.1)
[2021-09-04 11:13] LABS: INR 1.01 (0.8-1.2)
[2021-09-04 11:14] LABS: Partial Thromboplastin Time 38.8 SECONDS (23.9-36.7)
[2021-09-04 11:35] LABS: Procalcitonin 0.07 ng/mL (0-0.5)
[2021-09-04 13:05] LABS: Glucose Point of Care 198 mg/dL (70-110)
[2021-09-04 14:04] LABS: Iron 73 ug/dL (59-158); Percent Saturation 18.6 % (20-50); Total Iron Binding Capacity 392 mcg/dl; Unsaturated Iron Binding 319 ug/dL (112-347)
[2021-09-04 14:33] VITALS: BP 124/74; PULSE 72; RESP 19; O2SAT 93
[2021-09-04 15:01] VITALS: BP 124/74; PULSE 72; RESP 19; O2SAT 93
[2021-09-04 15:55] VITALS: BMI 32.1
[2021-09-04 16:00] VITALS: BP 138/69; PULSE 72; RESP 17; TEMP 36.6; O2SAT 93
[2021-09-04 16:09] VITALS: BMI 32.3
--- NOTE | 2021-09-04 16:26 | PM.PN ---
Subjective Subjective: Interval history: Admitted overnight. Today morning seen in the ER. Family at bedside. We discussed in detail for further plan. Patient is confused, trying to climb out of bed. Has remained hemodynamically stable and afebrile. Son states he would like to take his father back home. Would like to avoid SNF as much as possible. Son states he would need some help to take care of his father at home. We discussed possible options of home health versus home services versus possible hospice. Son for now is agreeable with hospice if possible. Vitals/I&O/Wt Last Vital Signs Temp 97.6 F 09/03/21 17:05 Pulse 72 09/04/21 15:01 Resp 19 H 09/04/21 15:01 BP 124/74 09/04/21 15:01 Pulse Ox 93 09/04/21 15:01 Weight last 48 hrs Weight 117.503 kg Weight 116.709 kg Weight 119.748 kg Physical Exam Narrative: EXAM NARRATIVE: Constitutional: Awake, confused, no distress HEENT: Normocephalic, pupils are equal reactive bilaterally, nasopharynx is clear, oropharynx with slightly dry mucous membranes but otherwise clear Neck: Supple Respiratory: Clear to auscultation bilaterally without any rales or wheezes noted Cardiovascular: Regular rate and rhythm, no JVD, no murmurs Abdomen: Soft, nontender, positive bowel sounds : Normal external genitalia Extremities: 1+ edema bilaterally, most notable at the ankles, no warmth or erythema noted at knees or ankles, no calf tenderness noted Skin: Chronic stasis changes to lower extremities, skin is dry, no rashes Neuro: Face is symmetric, speech is understandable, handgrip is equal, moves both lower extremities, out when asleep does have myoclonic jerks most notable at the feet but also notable in both hands, toes are equivocal Psych: Flat affect Data : 09/04/21 10:27 09/04/21 10:27 A&P Assessment and plan (1) Altered mental status: As per son patient is back to baseline. Symptoms most likely secondary to worsening dementia and depression. No signs of infection, normal white count, UA negative for any UTI. Check procalcitonin, MRSA swab. Troponin mildly elevated but better than last admission on admission without significant delta. Patient denies any chest pain though given. Patient cannot rely on his history. Patient's DPOA/son states they would not want any active cardiac work-up. Moving all extremities without definitive focal deficit beyond mentation. Myoclonic jerks are noted with patient sleeping but review of old records indicates this is not a new abnormality. No nuchal rigidity, no obvious areas of pain. Status: Acute Qualifiers: Altered mental status type: somnolence Qualified Code(s): R40.0 - Somnolence (2) Coronary artery disease: No reported complaints of chest pain, initial troponin without positive delta, EKG similar to prior studies Status: Chronic Qualifiers: Coronary Disease-Associated Artery/Lesion type: [place] artery [place] vs. transplanted heart: [place] heart Associated angina: without angina Qualified Code(s): I25.10 - Atherosclerotic heart disease of [place] coronary artery without angina pectoris (3) Diabetes mellitus: Looks to chronically be on glimepiride, pioglitazone, Metformin. Hold OHA's. Since sliding scale. Check HbA1c Status: Chronic Qualifiers: Diabetes mellitus type: type 2 Diabetes mellitus remote computer terminal operator insulin use: without remote computer terminal operator use Diabetes mellitus complication status: with hyperglycemia Qualified Code(s): E11.65 - Type 2 diabetes mellitus with hyperglycemia (4) Hyperlipidemia: Chronically on statin therapy continue home medication. Check lipid panel. Status: Chronic Qualifiers: Hyperlipidemia type: mixed hyperlipidemia Qualified Code(s): E78.2 - Mixed hyperlipidemia (5) Urinary retention: Has required Reed catheter in the past, chronically on Metformin Status: Chronic (6) Dementia: Chronically on Aricept and olanzapine Status: Chronic (7) Depression: Chronically on mirtazapine as well as trazodone with sleep Status: Chronic Additional A&P Information DNR/DNI. Protonix for PUD prophylaxis. SCDs for DVT prophylaxis. PT/OT/swallow evaluation. Continue with regular cardiac carb consistent diet for now. Will change as per swallow evaluation. Discussed in detail regarding further safe discharge planning with son. Son is thinking about long-term plan. Does not want his father to go to SNF. Would want to take him back home. They are looking for options regarding same. Case management has been alerted. Attestations Medical Necessity Statement*: Continue observation for altered mental status given to worsening dementia, depression as patient is at high risk of fall or aspiration at home. Time Spent in Patient Care: Greater than 35 minutes (>than 50% of time spent in counselling and/or direct pt care on unit). Coding Level of Care Code Acute Commercial Account Executive for Chg Fwd Diagnoses Altered mental status R40.0 Altered mental status type: somnolence Coronary artery disease I25.10 Coronary Disease-Associated Artery/Lesion type: [place] artery [place] vs. transplanted heart: [place] heart Associated angina: without angina Diabetes mellitus E11.65 Diabetes mellitus type: type 2 Diabetes mellitus remote computer terminal operator insulin use: without remote computer terminal operator use Diabetes mellitus complication status: with hyperglycemia Hyperlipidemia E78.2 Hyperlipidemia type: mixed hyperlipidemia Urinary retention R33.9 Dementia F03.90 Depression F32.9
[2021-09-04 17:15] LABS: Glucose Point of Care 182 mg/dL (70-110)
[2021-09-04] MEDS: mirtazapine 15 mg Tablet PO (18:14)
[2021-09-04] MEDS: ferrous gluconate 324 mg Tablet PO (18:14)
[2021-09-04 20:00] VITALS: BP 127/68; PULSE 73; RESP 19; TEMP 36.6; O2SAT 91
[2021-09-04 20:45] LABS: Glucose Point of Care 160 mg/dL (70-110)
[2021-09-04] MEDS: trazodone 50 mg Tablet PO (21:32)
[2021-09-04] MEDS: tamsulosin 0.4 mg Capsule PO (21:32)
[2021-09-05] VITALS: BP 137/75; PULSE 65; RESP 18; TEMP 36.6; O2SAT 94
[2021-09-05] MEDS: sodium chloride 0.9% 1,000 ML 75 ML IV (02:20)
[2021-09-05 04:00] VITALS: BP 127/72; PULSE 70; RESP 18; TEMP 36.5; O2SAT 94
[2021-09-05 05:14] LABS: Basophils % 0.5 %; Eosinophils # 0.2 10^3/uL (0.0-0.8); Eosinophils % 4.7 %; Hematocrit 35.9 % (42.0-52.0); Lymphocytes # 1.3 10^3/uL (0.8-4.8); Mean Corpuscular HGB Conc 30.6 g/dL (30.0-36.0); Mean Corpuscular Hemoglobin 29.2 pg (28.0-34.0); Mean Corpuscular Volume 95.2 fl (80-94); Monocytes # 0.4 10^3/uL (0.2-0.9); Monocytes % 9.8 %; Neutrophils # 2.31 10^3/uL (1.8-7.7); Neutrophils % 53.8 %; Nucleated Red Blood Cells % 0 %; Platelet Count 92 10^3/cmm (130-400); Red Blood Count 3.77 10^6/uL (4.1-5.3); Red Cell Distribution Width 14.5 % (12.1-15.1); White Blood Count 4.3 10^3/uL (4.0-10.0)
[2021-09-05 05:31] LABS: Anion Gap 11.1 (5-19); Blood Urea Nitrogen 20 mg/dL (8-23); Calcium 8.7 mg/dL (8.5-10.5); Carbon Dioxide 25 mmol/L (22-29); Chloride 108 mmol/L (98-107); Chol HDL Ratio 2.44 mg/dL (1.0-5.00); Cholesterol 83 mg/dL (0-200); Glucose 142 mg/dL (65-115); HDL Cholesterol 34 mg/dL (60-100); LDL Cholesterol Calculated 26 mg/dL (50-129); Osmolality Calculated 295 mOsm/kg (285-295); Phosphorus 3.5 mg/dL (2.5-4.5); Potassium 4.1 mmol/L (3.5-5.1); Sodium 140 mmol/L (136-145); Triglycerides 116 mg/dL (0-150); VLDL Cholestrol Calculation 23 mg/dL (0-30)
[2021-09-05] MEDS: donepezil 5 MG Tablet 10 MG PO (06:25)
[2021-09-05] MEDS: OLANZapine 10 mg TABLET PO (06:27)
[2021-09-05 06:36] LABS: Glucose Point of Care 145 mg/dL (70-110)
[2021-09-05 06:44] LABS: Estmated Average Glucose 131; Hemoglobin A1C 6.2 % (4.0-6.0)
[2021-09-05 07:07] VITALS: BP 143/70; PULSE 64; RESP 17; TEMP 36.6; O2SAT 98
[2021-09-05] MEDS: pantoprazole DR 40 mg Tablet PO (08:25)
[2021-09-05] MEDS: insulin lispro 100 unit/1 mL SUBCUT ×4 (08:25→20:12)
[2021-09-05] MEDS: ferrous gluconate 324 mg Tablet PO ×2 (08:25→18:11)
--- NOTE | 2021-09-05 11:04 | PC.CHAP ---
Pastoral Care Encounter/Spiritual Assessment Type of Contact [x] Declined waste transportation technician visit [] Patient/Family/Request visit [] Outpatient visit [] Follow-up visit [] Physician referral [] Code/Alert [] Routine visit [] Staff referral [] Actively dying [] Patient sleeping [] Family support [] [] Out of room [] Palliative care [] [] Receiving care in room [] Pre-surgical visit [] Trauma [] Long length of stay [] ICU visit [] Other: Relational/Emotional Strength [] Patient feels connected with others/family/visitors/staff [] Distress [] Loneliness/isolation [] Abandonment Spirituality of Patient [] Person of Kiesha [] Attends Holiness of their Kiesha [] Believes in Prayer [] Reads Bible or Church materials [] There are Spiritual issues to be addressed Accounts Executive Interventions [] Prayer [] Active listening [] Non-anxious presence [] Spiritual/emotional support [] Crisis/trauma care [] Spiritual counseling [] Bereavement support [] Provided bereavement packet [] Provided Bible/devotional materials [] Provided toy/stuffed animal, coloring book to patient or family member [] Provided Communion [] Anointing/[place] [] Salvation [] Completed spiritual assessment [] Other: Impact on Illness or Injury [] Angry [] Fearful [] Anxious [] Often cries [] Exhaustion [] Unable to work [] Unable to attend gnosticist [] Unable to walk/stand [] Unable to read [] Unable to drive [] Unable to eat/drink [] Unable to sleep [] Unable to be with family [] Patient intubated [] Other: Summary Declined waste transportation technician visit Time spent with patient 5 mins
[2021-09-05 12:15] LABS: Glucose Point of Care 217 mg/dL (70-110)
--- NOTE | 2021-09-05 15:08 | P.PN_ITS ---
Subjective Subjective: Interval history: Patient was seen and examined this morning, denies any active complaints, was seen eating breakfast, has participated with physical therapy.Other vitals and labs have been reviewed. Medications: Reviewed: Yes Vitals/I&O/Wt Last Vital Signs Temp 97.8 F 09/05/21 07:07 Pulse 64 09/05/21 07:07 Resp 17 09/05/21 07:07 BP 143/70 09/05/21 07:07 Pulse Ox 98 09/05/21 07:07 09/05/21 09/05/21 09/05/21 06:59 14:59 22:59 Intake Total 350 / 1240 960 / 960 Balance 350 / 1240 960 / 960 Weight last 48 hrs Weight 117.503 kg Weight 116.709 kg Weight 119.748 kg Physical Exam Narrative: EXAM NARRATIVE: Alert and awake, oriented to self only. HENMT: COMMON NORMALS: normocephalic and atraumatic HEAD & SCALP: normocephalic and atraumatic Resp: COMMON NORMALS: clear to auscultation bilaterally AUSCULTATION: clear to auscultation bilaterally Cardio: COMMON NORMALS: regular rate, regular rhythm, S1 normal heart sound present, S2 normal heart sound present, No gallops present (Cardio), No murmurs present (Cardio), No rub (Cardio) and Peripheral pulses 2+ throughout RATE: regular rate RHYTHM: regular rhythm HEART SOUNDS: S1 normal heart sound present and S2 normal heart sound present PERIPHERAL PULSES: Peripheral pulses 2+ throughout GI: COMMON NORMALS: Normal to inspection, nondistended, normoactive bowel sounds present, Soft to palpation, non-tender, No hepatosplenomegaly present and no masses AUSCULTATION: Yes normoactive bowel sounds PALPATION: Yes Soft to palpation and Yes No hepatosplenomegaly present RECTAL EXAM: Yes deferred Extremity: COMMON NORMALS: no clubbing, cyanosis or edema and no pedal edema Data : 09/05/21 04:20 09/05/21 04:20 A&P Assessment and plan (1) Altered mental status: Acute encephalopathy secondary to worsening dementia and depression patient is back to baseline. No signs of infection, normal white count, UA negative for any UTI. procalcitonin:Normal MRSA swab. Troponin mildly elevated but better than last admission on admission without significant delta. Patient denies any chest pain though given. Patient's DPOA/son states they would not want any active cardiac work-up. Moving all extremities without definitive focal deficit beyond mentation. Myoclonic jerks are noted with patient sleeping but review of old records indicates this is not a new abnormality. No nuchal rigidity, no obvious areas of pain. Status: Acute Qualifiers: Altered mental status type: somnolence Qualified Code(s): R40.0 - Somnolence (2) Coronary artery disease: No reported complaints of chest pain, initial troponin without positive delta, EKG similar to prior studies Status: Chronic Qualifiers: Coronary Disease-Associated Artery/Lesion type: [place] artery [place] vs. transplanted heart: [place] heart Associated angina: without angina Qualified Code(s): I25.10 - Atherosclerotic heart disease of [place] coronary artery without angina pectoris (3) Diabetes mellitus: Looks to chronically be on glimepiride, pioglitazone, Metformin. Hold OHA's. Since sliding scale. Check HbA1c Status: Chronic Qualifiers: Diabetes mellitus type: type 2 Diabetes mellitus shelter insulin use: without marine oil terminal superintendent use Diabetes mellitus complication status: with hyperglycemia Qualified Code(s): E11.65 - Type 2 diabetes mellitus with hyperglycemia (4) Urinary retention: Has required Reed catheter in the past, chronically on Tamsulosin Status: Chronic (5) Dementia: Chronically on Aricept and olanzapine Status: Chronic (6) Depression: Chronically on mirtazapine as well as trazodone with sleep Status: Chronic (7) Hyperlipidemia: Status: Chronic Qualifiers: Hyperlipidemia type: mixed hyperlipidemia Qualified Code(s): E78.2 - Mixed hyperlipidemia Additional A&P Information DNR/DNI. Protonix for PUD prophylaxis. SCDs for DVT prophylaxis. PT/OT/swallow evaluation.:Done Continue with regular cardiac carb consistent diet for now. Will change as per swallow evaluation. Disposition: Awaiting palliative care arrangement at home. Attestations Medical Necessity Statement*: Awaiting palliative care arrangement at home. Coding Level of Care Code Acute Canal Boat Operator for Chg Fwd Diagnoses Altered mental status R40.0 Altered mental status type: somnolence Coronary artery disease I25.10 Coronary Disease-Associated Artery/Lesion type: [place] artery [place] vs. transplanted heart: [place] heart Associated angina: without angina Diabetes mellitus E11.65 Diabetes mellitus type: type 2 Diabetes mellitus shelter insulin use: without marine oil terminal superintendent use Diabetes mellitus complication status: with hyperglycemia Urinary retention R33.9 Dementia F03.90 Depression F32.9 Hyperlipidemia E78.2 Hyperlipidemia type: mixed hyperlipidemia
[2021-09-05 16:00] VITALS: BP 133/66; PULSE 93; RESP 17; TEMP 36.4; O2SAT 95
[2021-09-05 18:01] LABS: Glucose Point of Care 152 mg/dL (70-110)
[2021-09-05] MEDS: mirtazapine 15 mg Tablet PO (18:11)
[2021-09-05 20:00] VITALS: BP 128/68; PULSE 73; RESP 18; TEMP 36.6; O2SAT 94
[2021-09-05 20:12] LABS: Glucose Point of Care 183 mg/dL (70-110)
[2021-09-05] MEDS: tamsulosin 0.4 mg Capsule PO (20:12)
[2021-09-05] MEDS: trazodone 50 mg Tablet PO (20:12)
[2021-09-06] VITALS (7 sets, daily range): BP systolic 113–152; BP diastolic 66–82; PULSE 57–82; RESP 16–18; TEMP 36.3–36.6; O2SAT 95–97
[2021-09-06] MEDS: OLANZapine 10 mg TABLET PO (05:29)
[2021-09-06] MEDS: donepezil 5 MG Tablet 10 MG PO (05:29)
[2021-09-06 05:44] LABS: Basophils % 0.5 %; Eosinophils # 0.2 10^3/uL (0.0-0.8); Eosinophils % 4.6 %; Hematocrit 35.2 % (42.0-52.0); Hemoglobin 10.8 g/dL (11.7-16.6); Lymphocytes % 26.3 %; Mean Corpuscular HGB Conc 30.7 g/dL (30.0-36.0); Mean Corpuscular Hemoglobin 29.2 pg (28.0-34.0); Mean Corpuscular Volume 95.1 fl (80-94); Mean Platelet Volume 11.7 fL (7.4-10.4); Monocytes # 0.3 10^3/uL (0.2-0.9); Monocytes % 7.2 %; Neutrophils % 61.4 %; Nucleated Red Blood Cells % 0 %; Platelet Count 96 10^3/cmm (130-400); Red Cell Distribution Width 14.4 % (12.1-15.1); White Blood Count 3.9 10^3/uL (4.0-10.0)
[2021-09-06 06:02] LABS: Anion Gap 14.2 (5-19); Blood Urea Nitrogen 20 mg/dL (8-23); Calcium 8.9 mg/dL (8.5-10.5); Carbon Dioxide 24 mmol/L (22-29); Chloride 107 mmol/L (98-107); Glucose 152 mg/dL (65-115); Osmolality Calculated 298 mOsm/kg (285-295); Potassium 4.2 mmol/L (3.5-5.1); Sodium 141 mmol/L (136-145)
[2021-09-06 06:56] LABS: Glucose Point of Care 157 mg/dL (70-110)
[2021-09-06] MEDS: ferrous gluconate 324 mg Tablet PO ×2 (08:30→17:10)
[2021-09-06] MEDS: pantoprazole DR 40 mg Tablet PO (08:30)
[2021-09-06 11:04] LABS: Glucose Point of Care 217 mg/dL (70-110)
--- NOTE | 2021-09-06 14:44 | PM.PN ---
Subjective Subjective: Interval history: Patient was seen and examined this morning, overall he is doing well. Working well with physical therapy. Medications: Reviewed: Yes Vitals/I&O/Wt Last Vital Signs Temp 97.4 F L 09/06/21 11:56 Pulse 57 L 09/06/21 11:56 Resp 18 09/06/21 11:56 BP 127/73 09/06/21 11:56 Pulse Ox 95 09/06/21 11:56 09/05/21 09/06/21 09/06/21 22:59 06:59 14:59 Intake Total 120 / 1080 240 / 240 Output Total 250 / 250 Balance 120 / 1080 -10 / -10 Weight last 48 hrs Weight 117.503 kg Weight 116.709 kg Physical Exam Narrative: EXAM NARRATIVE: Alert and awake, HENMT: COMMON NORMALS: normocephalic and atraumatic HEAD & SCALP: normocephalic and atraumatic Resp: COMMON NORMALS: clear to auscultation bilaterally AUSCULTATION: clear to auscultation bilaterally Cardio: COMMON NORMALS: regular rate, regular rhythm, S1 normal heart sound present, S2 normal heart sound present, No gallops present (Cardio), No murmurs present (Cardio), No rub (Cardio) and Peripheral pulses 2+ throughout RATE: regular rate RHYTHM: regular rhythm HEART SOUNDS: S1 normal heart sound present and S2 normal heart sound present PERIPHERAL PULSES: Peripheral pulses 2+ throughout GI: COMMON NORMALS: Normal to inspection, nondistended, normoactive bowel sounds present, Soft to palpation, non-tender, No hepatosplenomegaly present and no masses AUSCULTATION: Yes normoactive bowel sounds PALPATION: Yes Soft to palpation and Yes No hepatosplenomegaly present RECTAL EXAM: Yes deferred Extremity: COMMON NORMALS: no clubbing, cyanosis or edema and no pedal edema Data : 09/06/21 04:55 09/06/21 04:55 A&P Assessment and plan (1) Altered mental status: Acute encephalopathy secondary to worsening dementia and depression patient is back to baseline. No signs of infection, normal white count, UA negative for any UTI. procalcitonin:Normal MRSA swab. Troponin mildly elevated but better than last admission on admission without significant delta. Patient denies any chest pain though given. Patient's DPOA/son states they would not want any active cardiac work-up. Moving all extremities without definitive focal deficit beyond mentation. Myoclonic jerks are noted with patient sleeping but review of old records indicates this is not a new abnormality. No nuchal rigidity, no obvious areas of pain. Status: Acute Qualifiers: Altered mental status type: somnolence Qualified Code(s): R40.0 - Somnolence (2) Coronary artery disease: No reported complaints of chest pain, initial troponin without positive delta, EKG similar to prior studies Status: Chronic Qualifiers: Associated angina: without angina Coronary Disease-Associated Artery/Lesion type: [place] artery [place] vs. transplanted heart: [place] heart Qualified Code(s): I25.10 - Atherosclerotic heart disease of [place] coronary artery without angina pectoris (3) Diabetes mellitus: Looks to chronically be on glimepiride, pioglitazone, Metformin. Hold OHA's. Since sliding scale. Check HbA1c Status: Chronic Qualifiers: Diabetes mellitus complication status: with hyperglycemia Diabetes mellitus oysterman insulin use: without senior living use Diabetes mellitus type: type 2 Qualified Code(s): E11.65 - Type 2 diabetes mellitus with hyperglycemia (4) Urinary retention: Has required Reed catheter in the past, chronically on Tamsulosin Status: Chronic (5) Dementia: Chronically on Aricept and olanzapine Status: Chronic (6) Depression: Chronically on mirtazapine as well as trazodone with sleep Status: Chronic (7) Hyperlipidemia: Status: Chronic Qualifiers: Hyperlipidemia type: mixed hyperlipidemia Qualified Code(s): E78.2 - Mixed hyperlipidemia Additional A&P Information DNR/DNI. Protonix for PUD prophylaxis. SCDs for DVT prophylaxis. PT/OT/swallow evaluation.:Done Continue with regular cardiac carb consistent diet for now. Will change as per swallow evaluation. Disposition: Awaiting palliative care arrangement at home. Attestations Medical Necessity Statement*: Awaiting palliative care arrangement at home.Anticipated discharge tomorrow in the morning. Coding Level of Care Code Acute Laboratory Immunologist for [facility] Fwd Exam Detailed Diagnoses Altered mental status R40.0 Altered mental status type: somnolence Coronary artery disease I25.10 Associated angina: without angina Coronary Disease-Associated Artery/Lesion type: [place] artery [place] vs. transplanted heart: [place] heart Diabetes mellitus E11.65 Diabetes mellitus complication status: with hyperglycemia Diabetes mellitus oysterman insulin use: without senior living use Diabetes mellitus type: type 2 Urinary retention R33.9 Dementia F03.90 Depression F32.9 Hyperlipidemia E78.2 Hyperlipidemia type: mixed hyperlipidemia
[2021-09-06 17:10] LABS: Glucose Point of Care 174 mg/dL (70-110)
[2021-09-06] MEDS: mirtazapine 15 mg Tablet PO (17:10)
[2021-09-06] MEDS: insulin lispro 100 unit/1 mL SUBCUT ×2 (17:16→20:54)
[2021-09-06] MEDS: tamsulosin 0.4 mg Capsule PO (20:53)
[2021-09-06] MEDS: trazodone 50 mg Tablet PO (20:53)
[2021-09-06 20:54] LABS: Glucose Point of Care 156 mg/dL (70-110)
[2021-09-07] VITALS: BP 140/76; PULSE 78; RESP 17; TEMP 36.6; O2SAT 94
[2021-09-07 04:00] VITALS: BP 116/80; PULSE 76; RESP 17; TEMP 36.3; O2SAT 100
--- NOTE | 2021-09-07 05:25 | PC.NURSE ---
i reported low temp 97.3 to nurse
[2021-09-07] MEDS: OLANZapine 10 mg TABLET PO (05:29)
[2021-09-07] MEDS: donepezil 5 MG Tablet 10 MG PO (05:29)
[2021-09-07 08:00] VITALS: BP 118/70; PULSE 81; RESP 16; O2SAT 93
[2021-09-07] MEDS: pantoprazole DR 40 mg Tablet PO (08:04)
[2021-09-07] MEDS: ferrous gluconate 324 mg Tablet PO (08:04)
[2021-09-07] MEDS: insulin lispro 100 unit/1 mL SUBCUT (08:05)
[2021-09-07 08:08] LABS: Glucose Point of Care 157 mg/dL (70-110)
--- NOTE | 2021-09-07 14:04 | PC.SOCIAL ---
IMM Update: pg 2 of IMM updated and reviewed w/ patient. Copy provided.
--- NOTE | 2021-09-07 17:27 | PM.DCS ---
Discharge Providers Date of Admission: 09/04/21 01:23 Date of Discharge: September 07, 2021 Attending Provider at Admission: Danuta Valadez MD Attending Provider at Discharge: Reilly Smith MD Primary Care Provider: BARRY Fish Diagnoses at Discharge Discharge Diagnosis (1) Altered mental status: Status: Acute Qualifiers: Altered mental status type: somnolence Qualified Code(s): R40.0 - Somnolence (2) Coronary artery disease: Status: Chronic Qualifiers: Coronary Disease-Associated Artery/Lesion type: [place] artery [place] vs. transplanted heart: [place] heart Associated angina: without angina Qualified Code(s): I25.10 - Atherosclerotic heart disease of [place] coronary artery without angina pectoris (3) Diabetes mellitus: Status: Chronic Qualifiers: Diabetes mellitus type: type 2 Diabetes mellitus fci insulin use: without fci use Diabetes mellitus complication status: with hyperglycemia Qualified Code(s): E11.65 - Type 2 diabetes mellitus with hyperglycemia (4) Urinary retention: Status: Chronic (5) Dementia: Status: Chronic (6) Depression: Status: Chronic (7) Hyperlipidemia: Status: Chronic Qualifiers: Hyperlipidemia type: mixed hyperlipidemia Qualified Code(s): E78.2 - Mixed hyperlipidemia Reason for Visit Reason for Visit: SLURRED SPEECH,WEAK,INCREASED CONFUSION Hospital Course Hospital Course Sheng Patiño is a 81 year old male with a history of dementia who presented to the emergency room with several days of increasing weakness, somnolence, confusion.He was admitted for the management of AMS likely secondary to worsening dementia and depression.No signs of infection, normal white count, UA negative for any UTI. Check procalcitonin, MRSA swab.Troponin mildly elevated but better than last admission on admission without significant delta. Patient denies any chest pain though given. CT head without contrast was negative for any acute intracranial pathology, x-ray chest was normal. Patient was continued on conservativemedicalmanagement, PT was on board, participated well with physical therapy.He was continued on his home medication for his comorbid condition. For his dementia he was continued on Aricept and olanzapine, for his depression he was continued on mirtazapine as well as trazodone. For his diabetes he was continued on sliding scale insulin, he was discharged on his home medication glimepiride, pioglitazone, Metformin. For history of coronary artery disease patient denied any chest pain, troponin trend was without any significant delta, On EKG there was no acute ST-T wave changes. Patient responded well to the above conservative medical management. At the time of discharge he was at his baseline mentation.Patient was discharged home on palliative care. Physical Exam Narrative: EXAM NARRATIVE: Alert and awake and oriented *3 HENMT: COMMON NORMALS: normocephalic and atraumatic HEAD & SCALP: normocephalic and atraumatic Resp: COMMON NORMALS: clear to auscultation bilaterally AUSCULTATION: clear to auscultation bilaterally Cardio: COMMON NORMALS: regular rate, regular rhythm, S1 normal heart sound present, S2 normal heart sound present, No gallops present (Cardio), No murmurs present (Cardio), No rub (Cardio) and Peripheral pulses 2+ throughout RATE: regular rate RHYTHM: regular rhythm HEART SOUNDS: S1 normal heart sound present and S2 normal heart sound present PERIPHERAL PULSES: Peripheral pulses 2+ throughout GI: COMMON NORMALS: Normal to inspection, nondistended, normoactive bowel sounds present, Soft to palpation, non-tender, No hepatosplenomegaly present and no masses AUSCULTATION: Yes normoactive bowel sounds PALPATION: Yes Soft to palpation and Yes No hepatosplenomegaly present RECTAL EXAM: Yes deferred Extremity: COMMON NORMALS: no clubbing, cyanosis or edema and no pedal edema Discharge Data Data Completed and Pending: Completed Studies During Hospitalization Category Date Time Status CT head wo con* [id number] Urgent Cat Scan 09/03/21 20:54 Completed XR chest 1V susan ble [id number] Urgent Exams 09/03/21 22:48 Completed Pending at discharge Category Date Time Status Arterial Blood Ga s W/O Coox Routine Lab 09/04/21 07:34 Ordered Labs from last 24 hours 09/07/21 09/06/21 07:52 20:42 POC Glucose 157 H 156 H Vitals: Last Vital Signs Temp 97.3 F L 09/07/21 04:00 Pulse 81 09/07/21 08:00 Resp 16 09/07/21 08:00 BP 118/70 09/07/21 08:00 Pulse Ox 93 09/07/21 08:00 Discharge Plan Discharge Patient Disposition: Home Condition: Stable Prescriptions: Continued olopatadine [Pataday Twice Daily Relief] 0.1 % drops 1 drp ophthalmic (eye) BID Qty: 5 RF: 2 mupirocin 2 % ointment 1 applic topical BID Qty: 22 RF: 0 Vitamin B-12 2,500 mcg Tablet, Sublingual 2,500 mcg PO QAM RF: 0 acetaminophen 500 mg Tablet 1,000 mg PO Q4H PRN (Reason: Pain) RF: 0 trazodone 50 mg tablet 50 mg PO BEDTIME RF: 0 donepezil 10 mg tablet 10 mg PO QAM RF: 0 Zyprexa 10 mg tablet 10 mg PO QAM RF: 0 simvastatin 40 mg tablet 40 mg PO QPM RF: 0 glimepiride 2 mg tablet 2 mg PO QAM RF: 0 tamsulosin 0.4 mg capsule 0.4 mg PO BEDTIME RF: 0 omeprazole 20 mg capsule,delayed release(DR/EC) 20 mg PO QAM RF: 0 montelukast 10 mg tablet 10 mg PO QAM RF: 0 Remeron 15 mg tablet 15 mg PO QPM RF: 0 ergocalciferol (vitamin D2) 1,250 mcg (50,000 unit) capsule 1,250 mcg PO Q7D RF: 0 pioglitazone 30 mg tablet 30 mg PO QAM RF: 0 metformin 500 mg tablet extended release 24 hr 1,000 mg PO BID RF: 0 Mucinex 600 mg tablet extended release 12hr 600 mg PO BID PRN (Reason: Congestion) RF: 0 Discontinued cephalexin [Keflex] 750 mg capsule 750 mg PO BID Qty: 20 RF: 0 Discharge Orders: Discharge Order (Routine); Ordered 09/07/21 Ordered By: Reilly Smith Referrals: [facility] [Outside] - 1-3 days Patient Instructions: Type 2 Diabetes, Urinary Tract Infection in Men (DC), Opioid Safety Discharge Attestations Time Spent in Discharge Care*: less than 30 min Specific Discharge Activities: educating patient, educating and/or supporting family/caregiver, discussing with caser shoe parts/social workers/dc planners, documenting/other paperwork and evaluating patient/reviewing data Status at Discharge: Cognitive status at discharge: cognitively intact, Behavioral status at discharge: cooperative, Functional status at discharge: other assisted ambulation Overall status at discharge: patient is progressing back to baseline Quality Metrics Clinical Quality Measures During this hospital stay, did patient experience: None Coding Level of Care Code Acute Chg FW DC note Diagnoses Altered mental status R40.0 Altered mental status type: somnolence Coronary artery disease I25.10 Coronary Disease-Associated Artery/Lesion type: [place] artery [place] vs. transplanted heart: [place] heart Associated angina: without angina Diabetes mellitus E11.65 Diabetes mellitus type: type 2 Diabetes mellitus fci insulin use: without fci use Diabetes mellitus complication status: with hyperglycemia Urinary retention R33.9 Dementia F03.90 Depression F32.9 Hyperlipidemia E78.2 Hyperlipidemia type: mixed hyperlipidemia
== END 2021-09-07 13:05 | disposition home or self-care (01) ==
LOC: ER 23:50 → ER IP 09-04 04:06 → MEDSURG 09-04 15:01
PROVIDERS: Emergency Medicine; Student in an Organized Health Care Education/Training Program; Admitting Provider Hospitalist; Emergency Provider Emergency Medicine; PCP Nurse Practitioner; Visit Provider Internal Medicine
DX: R41.82 Altered mental status, unspecified (principal); G93.40 Encephalopathy, unspecified; R77.8 Other specified abnormalities of plasma proteins; F03.90 Unspecified dementia, unspecified severity, without behavioral disturbance, psychotic disturbance, mood disturbance, and anxiety; K21.9 Gastro-esophageal reflux disease without esophagitis; I25.10 Atherosclerotic heart disease of native coronary artery without angina pectoris; E11.65 Type 2 diabetes mellitus with hyperglycemia; E55.9 Vitamin D deficiency, unspecified; F32.A Depression, unspecified; D69.6 Thrombocytopenia, unspecified; E78.2 Mixed hyperlipidemia; R33.9 Retention of urine, unspecified; Z79.4 Long term (current) use of insulin; Z79.84 Long term (current) use of oral hypoglycemic drugs
CPT/HCPCS: 36415; 36416; 70450; 71045; 80048; 80053; 80061; 81003; 82140; 82962; 83036; 83540; 83550; 83690; 83735; 84100; 84145; 84484; 85025; 85610; 85730; 86140; 92523; 92610; 93005; 96372; 96374; 97161; 97165; 97530; 99285; G0378; J1815; J7030

== ENCOUNTER 2021-09-11 17:28 | Inpatient (IN) | payer OTHER, MEDICARE, BC, SELFPAY ==
[2021-09-11 17:33] VITALS: BP 137/65; PULSE 73; RESP 15; TEMP 36.6; O2SAT 96; BMI 29.9
--- NOTE | 2021-09-11 17:45 | CTR_ITS ---
PROCEDURE INFORMATION: Exam: CT Head Without Contrast Exam date and time: 09/11/2021 5:45 PM Age: 81 years old Clinical indication: Altered mental status/memory loss; Confusion or disorientation TECHNIQUE: Imaging protocol: Computed tomography of the head without contrast. Sagittal and coronal reformatted images were created and reviewed. Radiation optimization: All CT scans at this facility use at least one of these dose optimization techniques: automated exposure control; mA and/or kV adjustment per patient size (includes targeted exams where dose is matched to clinical indication); or iterative reconstruction. COMPARISON: CT head wo con* [id number] 09/03/2021 9:07 PM RADIATION DOSE METRICS: Total DLP (mGy-cm): 735.12 FINDINGS: Limitations: Motion artifact on multiple images that can limit evaluation. Brain: No acute intracranial hemorrhage. No acute infarct. No intra-axial or extra-axial masses. Mcgrath-white matter differentiation is preserved. No cerebral edema. No extra-axial fluid collections. No midline shift. Stable mild atrophy of the brain parenchyma. Stable mildly decreased attenuation in the deep white matter, consistent with mild chronic microangiopathic change. Cerebral ventricles: No hydrocephalus. Paranasal sinuses: Visualized paranasal sinuses are clear. Mastoid air cells: Unremarkable as visualized. Orbital cavity: Globes and lenses, extraocular muscles, and optic nerves are intact bilaterally. No acute intraorbital abnormality. Vasculature: Atherosclerotic changes in the visualized arteries. Bones/joints: Mild right nasal septal deviation. Soft tissues: No acute abnormality of the extracranial soft tissues. CT/CT head wo con* [id number] IMPRESSION: 1. Motion artifact on multiple images that can limit evaluation. Otherwise, no acute abnormality of the brain. 2. Stable mild atrophy of the brain parenchyma. 3. Stable mild chronic white matter microangiopathic change. 4. Incidental/nonacute findings are listed in the report. Radiation Dose CTDIVOL = (mGy): DLP = 735.12 (mGy-cm)
--- NOTE | 2021-09-11 17:46 | XRR_ITS ---
PROCEDURE INFORMATION: Exam: XR Chest Exam date and time: 09/11/2021 5:46 PM Age: 81 years old Clinical indication: Shortness of breath; Additional info: AMS TECHNIQUE: Imaging protocol: XR of the chest. Views: 1 view. COMPARISON: CR (CHEST, ) 09/03/2021 10:58 PM FINDINGS: Lungs: Decreased inspiration with mild bilateral lower lobe atelectasis. Pleural spaces: No pleural effusion. No pneumothorax. Heart/Mediastinum: Stable moderate enlargement of the cardiac silhouette. Mediastinal contours are unremarkable. Bones/joints: Unremarkable for age. XR/XR chest 1V portable [id number] IMPRESSION: 1. Decreased inspiration with mild bilateral lower lobe atelectasis. 2. Incidental/nonacute findings are listed in the report. Radiation Dose CTDIVOL = (mGy): DLP = (mGy-cm)
--- NOTE | 2021-09-11 17:46 | W.ED.GENADLT ---
HPI - General Adult General: Chief complaint: General Medical Stated complaint: CONFUSION Time Seen by Provider: 09/11/21 17:39 History of Present Illness: HPI narrative: 81-year-old male with history of dementia presents due to confusion and verbal agitation at home. He was recently hospitalized and discharged without acute finding. Per family he becomes very aggressive at home and is a danger to himself and others. Patient denies any focal complaints. Denies any focal pain. Denies any headache or head trauma. Denies any focal numbness weakness or tingling. Denies any desire to hurt himself or anyone else. Review of Systems Narrative: - CONSTITUTIONAL: Denies weight loss, fever and chills. - HEENT: Denies changes in vision and hearing. - RESPIRATORY: Denies SOB and cough. - CV: Denies palpitations and CP. - GI: Denies abdominal pain, nausea, vomiting and diarrhea. - : Denies dysuria and urinary frequency. - MSK: Denies myalgia and joint pain. - SKIN: Denies rash and pruritus. - NEUROLOGICAL: Denies headache, weakness, numbness and syncope. - PSYCHIATRIC: As above PFSH ED PFSH: Medical History (Updated 09/08/21 @ 00:01 by ) Acid reflux Ambulates with cane Coronary artery disease Dementia Depression Diabetes Diabetes mellitus Hydronephrosis, left Hyperlipidemia Seasonal and perennial allergic rhinitis Urinary retention Vitamin D deficiency Surgical History History of hip replacement, total History of PTCA Hx of hernia repair Family History Brother Diabetes Father , at age 82 CHF (congestive heart failure) Mother , at age 93 Heart disease Other CAD (coronary artery disease) Dementia Hypertension Stroke Denies family history of Cancer Social History (Updated 09/04/21 @ 06:42 by Danuta Valadez MD) Smoking and tobacco status: never smoked Alcohol intake: never Adopted: No Caregiver/support person: Yes Lives independently: No Household members: family Housing: House Marital status: / Number of children: 6 service: No Current occupational status: retired Current gender identity: Male Physical Exam Narrative: EXAM NARRATIVE: - GENERAL: Alert and oriented x to self only. No acute distress. Well-nourished. - EYES: EOMI. Anicteric. - HENT: Atraumatic, no C-spine tenderness. Moist mucous membranes. No scleral icterus. No cervical lymphadenopathy. - LUNGS: Clear to auscultation bilaterally. No accessory muscle use. Equal lung sounds bilaterally. No respiratory distress. - CARDIOVASCULAR: Regular rate and rhythm. No murmur. No JVD. - ABDOMEN: Soft, non-tender and non-distended. Negative CVA tenderness bilaterally, no rebound or guarding, negative Muse sign. No palpable masses. - EXTREMITIES: No edema. Non-tender. - SKIN: No rashes or lesions. Warm. - NEUROLOGIC: No meningismus or focal neurological deficits. CN II-XII grossly intact. - PSYCHIATRIC: Cooperative. Appropriate mood and affect. Course Vital Signs: Vital signs: Vital Signs Temperature 97.8 F 09/11/21 17:33 Pulse Rate 73 09/11/21 17:33 Respiratory Rate 15 09/11/21 17:33 Blood Pressure 137/65 09/11/21 17:33 Pulse Oximetry 96 09/11/21 17:33 MDM - General Adult MDM Narrative: Medical decision making narrative: 81-year-old male presents with altered mental status and transient combativeness. Physical exam unremarkable. Does appear to be demented however urinalysis concerning for UTI. Covered with Rocephin. Otherwise he is he medically stable afebrile nontoxic-appearing. Remainder of lab work is unremarkable except for TORITO. CT scan of the head does not reveal any cranial hemorrhage or other acute abnormality. Remainder of lab work and imaging reviewed. Discussed with hospitalist and they agreed patient would benefit from admission. Patient admitted in stable condition. Further evaluation management per hospitalist team. Lab Data: Labs: Lab Results 09/11/21 09/11/21 09/11/21 18:48 18:48 19:32 WBC 7.3 10^3/uL 10^3/ uL (4.0-10.0) RBC 4.00 10^6/uL L 10 ^6/uL (4.1-5.3) Hgb 11.8 g/dL g/dL (11.7-16.6) Hct 37.7 % L % (42.0-52.0) MCV 94.3 fl H fl (80-94) MCH 29.5 pg pg (28.0-34.0) MCHC 31.3 g/dL g/dL (30.0-36.0) RDW 14.6 % % (12.1-15.1) Plt Count 104 10^3/cmm L 10 ^3/cmm (130-400) MPV 13.7 fL H fL (7.4-10.4) Neut % (Auto) 73.1 % % Lymph % (Auto) 15.3 % % [place] % (Auto) 9.7 % % Eos % (Auto) 1.5 % % Baso % (Auto) 0.3 % % Neut # (Auto) 5.34 10^3/uL 10^3 /uL (1.8-7.7) Lymph # (Auto) 1.1 10^3/uL 10^3/ uL (0.8-4.8) [place] # (Auto) 0.7 10^3/uL 10^3/ uL (0.2-0.9) Eos # (Auto) 0.1 10^3/uL 10^3/ uL (0.0-0.8) Baso # (Auto) 0.0 10^3/uL 10^3/ uL (0.0-0.1) Nucleated RBC % (a uto) 0 % % Nucleated RBCs # 0.0 /100WBC /100W BC Sodium Cancelled 141 mmol/L mmol/L (136-145) Potassium Cancelled 4.1 mmol/L mmol/L (3.5-5.1) Chloride Cancelled 105 mmol/L mmol/L (98-107) Carbon Dioxide Cancelled 23 mmol/L mmol/L (22-29) Anion Gap Cancelled 17.1 (5-19) BUN Cancelled 36 mg/dL H mg/dL (8-23) Creatinine Cancelled 1.5 mg/dL H mg/dL (0.7-1.2) GFR Calculation Cancelled Not Reportable Glucose Cancelled 151 mg/dL H mg/dL (65-115) Calculated Osmolal ity Cancelled 303 mOsm/kg H mOs m/kg (285-295) Calcium Cancelled 9.0 mg/dL mg/dL (8.5-10.5) Total Bilirubin Cancelled 0.5 mg/dL mg/dL (0.15-1.2) AST Cancelled 16 U/L U/L (0-40) ALT Cancelled 17 U/L U/L (0-41) Alkaline Phosphata se Cancelled 83 IU/L IU/L (40-130) Total Protein Cancelled 7.2 g/dL g/dL (6.6-8.7) Albumin Cancelled 3.9 g/dL g/dL (3.5-5.2) Globulin Cancelled 3.3 g/dL g/dL (1.3-4.6) TSH Cancelled 2.14 uIU/mL uIU/m L (0.27-4.20) Urine Color Urine Appearance Urine pH Ur Specific Gravit y Urine Protein Urine Glucose (UA) Urine Ketones Urine Blood Urine Nitrate Urine Bilirubin Prot Sulfosalicyli c Acd Urine Urobilinogen Ur Leukocyte Lilli ase Urine RBC Urine WBC Amorphous Sediment Urine Bacteria 09/11/21 19:42 WBC RBC Hgb Hct MCV MCH MCHC RDW Plt Count MPV Neut % (Auto) Lymph % (Auto) [place] % (Auto) Eos % (Auto) Baso % (Auto) Neut # (Auto) Lymph # (Auto) [place] # (Auto) Eos # (Auto) Baso # (Auto) Nucleated RBC % (a uto) Nucleated RBCs # Sodium Potassium Chloride Carbon Dioxide Anion Gap BUN Creatinine GFR Calculation Glucose Calculated Osmolal ity Calcium Total Bilirubin AST ALT Alkaline Phosphata se Total Protein Albumin Globulin TSH Urine Color Dark yellow (Yellow) Urine Appearance Cloudy (CLEAR) Urine pH 9 H (5-7) Ur Specific Gravit y 1.010 (1.005-1.030) Urine Protein 2+ H (Negative) Urine Glucose (UA) Norm (Normal) Urine Ketones Negative (Negative) Urine Blood 3+ H (Negative) Urine Nitrate Positive H (Negative) Urine Bilirubin Neg (Negative) Prot Sulfosalicyli c Acd Positive (Negative) Urine Urobilinogen Norm mg/dL mg/dL (Negative) Ur Leukocyte Lilli ase 2+ H (Negative) Urine RBC 50-80 /hpf H /hpf (0-2) Urine WBC Too numerous to c nt /hpf H /hpf (0-5) Amorphous Sediment Not Reportable Urine Bacteria 4+ /hpf H /hpf (NONE) Discharge Plan Discharge Prescriptions: No Action olopatadine [Pataday Twice Daily Relief] 0.1 % drops 1 drp ophthalmic (eye) BID Qty: 5 RF: 2 mupirocin 2 % ointment 1 applic topical BID Qty: 22 RF: 0 Vitamin B-12 2,500 mcg Tablet, Sublingual 2,500 mcg PO QAM RF: 0 acetaminophen 500 mg Tablet 1,000 mg PO Q4H PRN (Reason: Pain) RF: 0 trazodone 50 mg tablet 50 mg PO BEDTIME RF: 0 donepezil 10 mg tablet 10 mg PO QAM RF: 0 Zyprexa 10 mg tablet 10 mg PO QAM RF: 0 simvastatin 40 mg tablet 40 mg PO QPM RF: 0 glimepiride 2 mg tablet 2 mg PO QAM RF: 0 tamsulosin 0.4 mg capsule 0.4 mg PO BEDTIME RF: 0 omeprazole 20 mg capsule,delayed release(DR/EC) 20 mg PO QAM RF: 0 montelukast 10 mg tablet 10 mg PO QAM RF: 0 Remeron 15 mg tablet 15 mg PO QPM RF: 0 ergocalciferol (vitamin D2) 1,250 mcg (50,000 unit) capsule 1,250 mcg PO Q7D RF: 0 pioglitazone 30 mg tablet 30 mg PO QAM RF: 0 metformin 500 mg tablet extended release 24 hr 1,000 mg PO BID RF: 0 Mucinex 600 mg tablet extended release 12hr 600 mg PO BID PRN (Reason: Congestion) RF: 0 Coding Level of Care Code ED Cyber Instructor for [facility]
[2021-09-11 19:30] LABS: Basophils % 0.3 %; Eosinophils # 0.1 10^3/uL (0.0-0.8); Eosinophils % 1.5 %; Hematocrit 37.7 % (42.0-52.0); Hemoglobin 11.8 g/dL (11.7-16.6); Lymphocytes # 1.1 10^3/uL (0.8-4.8); Lymphocytes % 15.3 %; Mean Corpuscular HGB Conc 31.3 g/dL (30.0-36.0); Mean Corpuscular Hemoglobin 29.5 pg (28.0-34.0); Mean Corpuscular Volume 94.3 fl (80-94); Mean Platelet Volume 13.7 fL (7.4-10.4); Monocytes # 0.7 10^3/uL (0.2-0.9); Monocytes % 9.7 %; Neutrophils # 5.34 10^3/uL (1.8-7.7); Neutrophils % 73.1 %; Nucleated Red Blood Cells % 0 %; Platelet Count 104 10^3/cmm (130-400); Red Cell Distribution Width 14.6 % (12.1-15.1); White Blood Count 7.3 10^3/uL (4.0-10.0)
[2021-09-11 20:11] LABS: Alanine Aminotransferase 17 U/L (0-41); Albumin Level 3.9 g/dL (3.5-5.2); Alkaline Phosphatase 83 IU/L (40-130); Anion Gap 17.1 (5-19); Aspartate Amino Transferase 16 U/L (0-40); Blood Urea Nitrogen 36 mg/dL (8-23); Carbon Dioxide 23 mmol/L (22-29); Chloride 105 mmol/L (98-107); Globulin 3.3 g/dL (1.3-4.6); Glucose 151 mg/dL (65-115); Osmolality Calculated 303 mOsm/kg (285-295); Potassium 4.1 mmol/L (3.5-5.1); Sodium 141 mmol/L (136-145); Thyroid Stimulating Hormone 2.14 uIU/mL (0.27-4.20); Total Bilirubin 0.5 mg/dL (0.15-1.2); Total Protein 7.2 g/dL (6.6-8.7)
[2021-09-11 20:12] LABS: Urine Appearance Cloudy (CLEAR); Urine Color Dark Yellow (Yellow)
[2021-09-11 20:13] LABS: pH Urine 9 (5-7)
[2021-09-11 20:14] LABS: Add Urine Microscopic? YES; Bilirubin Urine Neg (Negative); Glucose Urine UA Norm (Normal); Ketones Urine Negative (Negative); Sulfosalicylic Acid Urine Positive (Negative); Urobilinogen Urine Norm (Negative)
[2021-09-11 20:16] LABS: Protein Urine 2+ (Negative)
[2021-09-11 20:17] LABS: Blood Urine 3+ (Negative); Leukocyte Esterase Urine 2+ (Negative)
[2021-09-11 20:18] LABS: Bacteria Urine 4+ /hpf; Nitrate Urine Positive (Negative); RBC Urine 50-80 /hpf (0-2); WBC Urine TOO NUMEROUS TO CNT /hpf (0-5)
[2021-09-11 20:19] LABS: Add Urine Culture? Yes
[2021-09-11] MEDS: cefTRIAXone 1,000 MG in sodium chloride 0.9% (plus) 50 ML 100 MG IV (20:54)
[2021-09-11 21:16] LABS: Charge for UA Resulting for Rev
--- NOTE | 2021-09-11 21:31 | P.HP_ITS ---
Providers/Chief Complaint Primary Care Provider: BARRY Fish Chief Complaint: CONFUSION History of Present Illness Sheng Patiño is a 81 year old male with past medical history of advanced dementia, diabetes, hypertension, coronary artery disease, depression who is brought by his son to emergency room due to increasing confusion, agitation. The patient was in the hospital recently for altered mental status. He was dis charged home with hospice care. However his condition worsened since then. According to his son the patient has become increasingly agitated and sometimes combative. According to him the patient was indicating some discomfort in his suprapubic area. No associated fever or chills. The patient does not eat or drink enough. No chest pain, shortness of breath, cough, palpitations. No diarrhea or vomiting. Emergency room the patient was found to have urinary tract infection. Urine sample was obtained with direct catheterization. The labs also indicate dehydration and acute kidney injury. Review of Systems General: Reports: ROS unobtainable due to mental status Medications/Allergies Home Medications Medication Instructions Recorded Confirmed Last Taken Type olopatadine 0.1 % eye drops 1 drp OPHTHALMIC (EYE) BID #5 ml 07/30/21 09/04/21 09/03/21 Rx mupirocin 2 % topical ointment 1 applic TOPICAL BID #22 g 08/27/21 09/04/21 Unknown Rx Mucinex 600 mg PO BID PRN 09/04/21 09/04/21 Unknown History Remeron 15 mg PO QPM 09/04/21 09/04/21 Unknown History Vitamin B-12 2,500 mcg PO QAM 09/04/21 09/04/21 09/03/21 History Zyprexa 10 mg PO QAM 09/04/21 09/04/21 09/03/21 History acetaminophen 1,000 mg PO Q4H PRN 09/04/21 09/04/21 Unknown History donepezil 10 mg PO QAM 09/04/21 09/04/21 09/03/21 History ergocalciferol (vitamin D2) 1,250 mcg PO Q7D 09/04/21 09/04/21 08/28/21 History glimepiride 2 mg PO QAM 09/04/21 09/04/21 09/03/21 History metformin 1,000 mg PO BID 09/04/21 09/04/2109/03/21 History montelukast 10 mg PO QAM 09/04/21 09/04/21 09/03/21 History omeprazole 20 mg PO QAM 09/04/21 09/04/21 09/03/21 History pioglitazone 30 mg PO QAM 09/04/21 09/04/21 09/03/21 History simvastatin 40 mg PO QPM 09/04/21 09/04/21 Unknown History tamsulosin 0.4 mg PO BEDTIME 09/04/21 09/04/21 Unknown History trazodone 50 mg PO BEDTIME 09/04/21 09/04/21 Unknown History Allergies Allergy/AdvReac Type Severity Reaction Status Date / Time No Known Allergies Allergy Verified 09/04/21 07:46 PFSH Acute PFSH: Medical History (Updated 09/11/21 @ 21:04 by Cheo Velazco) Acid reflux Ambulates with cane Coronary artery disease Dementia Depression Diabetes Diabetes mellitus Hydronephrosis, left Hyperlipidemia Seasonal and perennial allergic rhinitis Urinary retention Vitamin D deficiency Surgical History History of hip replacement, total History of PTCA Hx of hernia repair Family History Brother Diabetes Father , at age 82 CHF (congestive heart failure) Mother , at age 93 Heart disease Other CAD (coronary artery disease) Dementia Hypertension Stroke Denies family history of Cancer Social History (Updated 09/04/21 @ 06:42 by Danuta Valadez MD) Smoking and tobacco status: never smoked Alcohol intake: never Adopted: No Caregiver/support person: Yes Lives independently: No Household members: family Housing: House Marital status: / Number of children: 6 service: No Current occupational status: retired Current gender identity: Male Vitals/I&O/Wt Last Vital Signs Temp 97.8 F 09/11/21 17:33 Pulse 73 09/11/21 17:33 Resp 15 09/11/21 17:33 BP 137/65 09/11/21 17:33 Pulse Ox 96 09/11/21 17:33 Weight last 48 hrs Weight 108.862 kg Physical Exam Narrative: EXAM NARRATIVE: The patient is currently awake but confused and disoriented. No acute distress at this time. He is cooperative with examination. Almost a verbal. Skin is warm and dry. Dry mucous membranes Eyes PERRL, extraocular muscles are intact Neck supple. No JVD Lungs are clear bilaterally. No no respiratory distress. No wheezing. Heart S1, S2, regular Abdomen soft, nontender, bowel sounds are present Extremities trace edema no cyanosis no calf tenderness bilaterally Moves all extremities. No facial asymmetry. Data : 09/11/21 18:48 09/11/21 19:32 Other Labs: Laboratory Results WBC 7.3 10^3/uL (4.0-10.0) 09/11/21 18:48 RBC 4.00 10^6/uL (4.1-5.3) L 09/11/21 18:48 Hgb 11.8 g/dL (11.7-16.6) 09/11/21 18:48 Hct 37.7 % (42.0-52.0) L 09/11/21 18:48 MCV 94.3 fl (80-94) H 09/11/21 18:48 MCH 29.5 pg (28.0-34.0) 09/11/21 18:48 MCHC 31.3 g/dL (30.0-36.0) 09/11/21 18:48 RDW 14.6 % (12.1-15.1) 09/11/21 18:48 Plt Count 104 10^3/cmm (130-400) L 09/11/21 18:48 MPV 13.7 fL (7.4-10.4) H 09/11/21 18:48 Neut % (Auto) 73.1 % 09/11/21 18:48 Lymph % (Auto) 15.3 % 09/11/21 18:48 [place] % (Auto) 9.7 % 09/11/21 18:48 Eos % (Auto) 1.5 % 09/11/21 18:48 Baso % (Auto) 0.3 % 09/11/21 18:48 Neut # (Auto) 5.34 10^3/uL (1.8-7.7) 09/11/21 18:48 Lymph # (Auto) 1.1 10^3/uL (0.8-4.8) 09/11/21 18:48 [place] # (Auto) 0.7 10^3/uL (0.2-0.9) 09/11/21 18:48 Eos # (Auto) 0.1 10^3/uL (0.0-0.8) 09/11/21 18:48 Baso # (Auto) 0.0 10^3/uL (0.0-0.1) 09/11/21 18:48 Nucleated RBC % (auto) 0 % 09/11/21 18:48 Nucleated RBCs # 0.0 /100WBC 09/11/21 18:48 Sodium 141 mmol/L (136-145) 09/11/21 19:32 Potassium 4.1 mmol/L (3.5-5.1) 09/11/21 19:32 Chloride 105 mmol/L (98-107) 09/11/21 19:32 Carbon Dioxide 23 mmol/L (22-29) 09/11/21 19:32 Anion Gap 17.1 (5-19) 09/11/21 19:32 BUN 36 mg/dL (8-23) H 09/11/21 19:32 Creatinine 1.5 mg/dL (0.7-1.2) H 09/11/21 19:32 GFR Calculation Not Reportable 09/11/21 19:32 Glucose 151 mg/dL (65-115) H 09/11/21 19:32 Calculated Osmolality 303 mOsm/kg (285-295) H 09/11/21 19:32 Calcium 9.0 mg/dL (8.5-10.5) 09/11/21 19:32 Total Bilirubin 0.5 mg/dL (0.15-1.2) 09/11/21 19:32 AST 16 U/L (0-40) 09/11/21 19:32 ALT 17 U/L (0-41) 09/11/21 19:32 Alkaline Phosphatase 83 IU/L (40-130) 09/11/21 19:32 Total Protein 7.2 g/dL (6.6-8.7) 09/11/21 19:32 Albumin 3.9 g/dL (3.5-5.2) 09/11/21 19:32 Globulin 3.3 g/dL (1.3-4.6) 09/11/21 19:32 TSH 2.14 uIU/mL (0.27-4.20) 09/11/21 19:32 Urine Color Dark yellow (Yellow) 09/11/21 19:42 Urine Appearance Cloudy (CLEAR) 09/11/21 19:42 Urine pH 9 (5-7) H 09/11/21 19:42 Ur Specific Ennice 1.010 (1.005-1.030) 09/11/21 19:42 Urine Protein 2+ (Negative) H 09/11/21 19:42 Urine Glucose (UA) Norm (Normal) 09/11/21 19:42 Urine Ketones Negative (Negative) 09/11/21 19:42 Urine Blood 3+ (Negative) H 09/11/21 19:42 Urine Nitrate Positive (Negative) H 09/11/21 19:42 Urine Bilirubin Neg (Negative) 09/11/21 19:42 Prot Sulfosalicylic Acd Positive (Negative) 09/11/21 19:42 Urine Urobilinogen Norm mg/dL (Negative) 09/11/21 19:42 Ur Leukocyte Esterase 2+ (Negative) H 09/11/21 19:42 Urine RBC 50-80 /hpf (0-2) H 09/11/21 19:42 Urine WBC Too numerous to cnt /hpf (0-5) H 09/11/21 19:42 Ur Squamous Epith Cells 5-10 /hpf (0-5) H 09/11/21 19:42 Amorphous Sediment Not Reportable 09/11/21 19:42 Urine Bacteria 4+ /hpf (NONE) H 09/11/21 19:[address] 09/11/21 17:45 IMPRESSION: 1. Motion artifact on multiple images that can limit evaluation. Otherwise, no acute abnormality of the brain. 2. Stable mild atrophy of the brain parenchyma. 3. Stable mild chronic white matter microangiopathic change. 4. Incidental/nonacute findings are listed in the report. Radiation Dose CTDIVOL = (mGy): DLP = 735.12 (mGy-cm) Chest X-Ray 09/11/21 17:46 IMPRESSION: 1. Decreased inspiration with mild bilateral lower lobe atelectasis. 2. Incidental/nonacute findings are listed in the report. Radiation Dose CTDIVOL = (mGy): DLP = (mGy-cm) A&P Additional A&P Information 81 year old male with past medical history of advanced dementia, diabetes, hypertension, coronary artery disease, depression who is brought by his son to emergency room due to increasing confusion, agitation. The patient was in the hospital recently for altered mental status. He was discharged home with hospice care. However his condition worsened since then. Becoming increasingly agitated and sometimes combative. Emergency room the patient was found to have urinary tract infection. Urine sample was obtained with direct catheterization. The labs also indicate dehydration and acute kidney injury. Acute metabolic encephalopathy on top of chronic advanced dementia secondary to urinary tract infection, dehydration and probably urinary retention. The family is unable to take care of the patient's daily needs. Most likely the patient will require placement to intermediate facility. We will ask for PT OT eval and treat and case management input. Will use Geodon as needed for acute psychosis. Urinary retention. Reed catheter. UTI. Rocephin. UCS. Dehydration with associated mild kidney injury. Will hydrate gently. We will recheck his chemistry panel in the morning. Will adjust treatments accordingly. DVT prophylaxis. Lovenox. CODE STATUS. Had a long discussion with the patient's son who is patient's healthcare proxy. According to patient's previously expressed wishes the patient would want to be DNR and DNI. He would like to peacefully and join his who a year ago. However at this point they want to continue medical management. Attestations Medical Necessity Statement*: Based on my assessment of patient's current condition he will require more than 2 midnights for management of his psychosis, infection, assessments and placement. Coding Level of Care Code Acute Inner Diameter Grinder Tool for Luis Enrique Ward
[2021-09-11 22:18] VITALS: BP 127/65; PULSE 81; RESP 18; O2SAT 96
[2021-09-11 23:25] VITALS: BMI 29.9
[2021-09-11] MEDS: enoxaparin 40 mg/0.4 mL Syringe SUBCUT (23:57)
[2021-09-11] MEDS: sodium chloride 0.9% 1,000 ML 75 ML IV (23:57)
--- NOTE | 2021-09-12 00:49 | PC.NURSE ---
HERNANDEZ INSERTION: AT 0015 A 16 FR HERNANDEZ CATHETER WAS INSERTED INTO THE PATIENT'S URETHRA VIA ASEPTIC TECHNIQUE. THE FORESKIN OF THE PENIS WAS RETRACTED AND CLEANED WITH WARM WATER AND RONEN WASH. THEN THE PATIENT WAS DRAPED. THE PENIS WAS THEN CLEANED WITH BETADINE. HERNANDEZ CATHETER INSERTED UNTIL URINE RETURN. STAT LOCK APPLIED TO RIGHT THIGH. HERNANDEZ BAG HANGING BELOW BLADDER ON SIDE OF BED. THERE WAS 850ML OF URINE FOLLOWING INSERTION. PATIENT TOLERATED PROCEDURE WELL.
[2021-09-12 04:00] VITALS: BP 139/76; PULSE 82; RESP 18; TEMP 37.2; O2SAT 94
[2021-09-12] MEDS: OLANZapine 10 mg TABLET PO (06:22)
[2021-09-12] MEDS: pantoprazole DR 40 mg Tablet PO (06:22)
[2021-09-12 06:46] LABS: Anion Gap 17.8 (5-19); Blood Urea Nitrogen 36 mg/dL (8-23); Calcium 8.9 mg/dL (8.5-10.5); Carbon Dioxide 21 mmol/L (22-29); Chloride 107 mmol/L (98-107); Glucose 121 mg/dL (65-115); Magnesium 2.1 mg/dL (1.7-2.3); Osmolality Calculated 304 mOsm/kg (285-295); Potassium 3.8 mmol/L (3.5-5.1); Sodium 142 mmol/L (136-145); Thyroid Stimulating Hormone 2.39 uIU/mL (0.27-4.20)
[2021-09-12 08:00] VITALS: BP 124/73; PULSE 81; RESP 17; TEMP 36.7; O2SAT 96
--- NOTE | 2021-09-12 09:13 | P.PN_ITS ---
Subjective Subjective: Interval history: Patient was seen and examined this morning, he is on one-to-one supervision, nursing staff reported that patient was severely agitated, he was making sexual advancement towards the nursing staff as well, required sedatives and antipsychotics this morning he is able to open his eyes however not a reliable historian Patient was discharged on 09/07 on palliative care secondary to advanced dementia For his depression he was started on mirtazapine and trazodone For dementia he was started on Aricept and olanzapine, he does get Metformin pioglitazone glimepiride for diabetes He does have history of coronary disease No signs of infection on UA on previous exam Vitals/I&O/Wt Last Vital Signs Temp 98.1 F 09/12/21 08:00 Pulse 81 09/12/21 08:00 Resp 17 09/12/21 08:00 BP 124/73 09/12/21 08:00 Pulse Ox 96 09/12/21 08:00 09/11/21 09/12/21 09/12/21 22:59 06:59 14:59 Intake Total 416.25 / 416.25 0 / 0 Output Total 450 / 450 Balance -33.75 / -33.75 0 / 0 Weight last 48 hrs Weight 108.862 kg Weight 108.862 kg Physical Exam Narrative: EXAM NARRATIVE: Patient was laying supine, sedated However able to open his eyes, is able to tell me his name, he was not able to tell me his date of , his abdomen was soft on palpation, urine bag had blood-tinged urine however urine color has turned yellow which was noticed in the catheter Is able to move his upper and lower extremities He does appear to have good muscle mass No signs of emaciation or muscle mass loss S1, S2 Trace edema of leg no signs of cellulitis Skin is dry I have not noticed any rashes Patient is drowsy Urinary Catheter Management^: Reed: Cath Placed During This Visit: yes Reason for Continuing Indwelling Catheter: Acute Urinary Retention or Obstruction Urinary Catheter Date of Insertion: 09/12/21 Urinary Catheter Time of Insertion: 00:15 Data : 09/11/21 18:48 09/12/21 03:00 A&P Assessment and plan (1) Acute metabolic encephalopathy: Status: Acute (2) Dehydration: Status: Acute (3) UTI (urinary tract infection): Status: Acute (4) Vitamin D deficiency: Status: Chronic (5) Depression: Status: Chronic (6) Dementia: Status: Chronic Additional A&P Information Recurrent episodes of delirium with underlying dementia There is suspicion for urinary tract infection We will follow with urine culture continue ceftriaxone for now Previous urine culture did not show any growth Urine bag has blood-tinged urine most likely secondary to traumatic Reed catheter placement, urine color has changed to dark yellow which was noted in the catheter He has been afebrile, blood pressure stable, check procalcitonin level, no leukocytosis noted He does appear to be dehydrated, dry mucous membranes, creatinine is 1.5, continue IV fluids once we are able to get another IV access For his underlying dementia with hyperactive delirium continue olanzapine and Seroquel for now Currently requiring one-to-one supervision Is DNR/DNI, healthcare proxy son wants medical management for his acute issues Attestations Medical Necessity Statement*: Anticipating discharge tomorrow if his creatinine improved and mentation is better Time Spent in Patient Care: less than 15 minutes Coding Level of Care Code Acute Merchandising Execution Manager for Luis Enrique Ward Diagnoses Acute metabolic encephalopathy G93.41 Dehydration E86.0 UTI (urinary tract infection) N39.0 Vitamin D deficiency E55.9 Depression F32.9 Dementia F03.90
[2021-09-12 10:22] LABS: Procalcitonin 0.21 ng/mL (0-0.5)
--- NOTE | 2021-09-12 10:23 | PC.CHAP ---
Pastoral Care Encounter/Spiritual Assessment Type of Contact [] Declined cash register servicer visit [] Patient/Family/Request visit [] Outpatient visit [] Follow-up visit [] Physician referral [] Code/Alert [x] Routine visit [] Staff referral [] Actively dying [] Patient sleeping [] Family support [] [] Out of room [] Palliative care [] [x] Receiving care in room [] Pre-surgical visit [] Trauma [] Long length of stay [] ICU visit [x] Other: with nurse and on medical support Relational/Emotional Strength [] Patient feels connected with others/family/visitors/staff [] Distress [] Loneliness/isolation [] Abandonment Spirituality of Patient [] Person of Kiesha [] Attends Religious of their Kiesha [] Believes in Prayer [] Reads Bible or Hindu materials [] There are Spiritual issues to be addressed Production Line Operator Interventions [] Prayer [] Active listening [] Non-anxious presence [] Spiritual/emotional support [] Crisis/trauma care [] Spiritual counseling [] Bereavement support [] Provided bereavement packet [] Provided Bible/devotional materials [] Provided toy/stuffed animal, coloring book to patient or family member [] Provided Communion [] Anointing/[place] [] Salvation [] Completed spiritual assessment [] Other: Impact on Illness or Injury [] Angry [] Fearful [] Anxious [] Often cries [] Exhaustion [] Unable to work [] Unable to attend oriental orthodox [] Unable to walk/stand [] Unable to read [] Unable to drive [] Unable to eat/drink [] Unable to sleep [] Unable to be with family [] Patient intubated [] Other: Summary with nurse and on medical support Time spent with patient 5 mins
--- NOTE | 2021-09-12 10:34 | PC.OT ---
OT evaluation received. OT evaluation attempted. Patient sleeping and unable to arouse. Víctorter stated he has been sleeping since 7AM and has not aroused.
[2021-09-12 11:43] VITALS: BP 133/77; PULSE 69; RESP 17; TEMP 36.4; O2SAT 97
[2021-09-12 12:02] LABS: Glucose Point of Care 112 mg/dL (70-110)
--- NOTE | 2021-09-12 12:48 | PC.PT ---
Nursing staff report patient independent with transfers and ambulation with walker when he wants to, but requires supervision for safety as prior, current plan is patient to return home on hospice tomorrow, PT evaluation on hold until further orders.
[2021-09-12 16:00] VITALS: BP 134/79; PULSE 66; RESP 18; TEMP 36.6; O2SAT 98
[2021-09-12 17:03] LABS: Glucose Point of Care 273 mg/dL (70-110)
[2021-09-12] MEDS: insulin lispro 100 unit/1 mL SUBCUT (18:19)
[2021-09-12 20:00] VITALS: BP 137/69; PULSE 83; RESP 17; TEMP 36.5; O2SAT 97
--- NOTE | 2021-09-12 20:00 | PC.NURSE ---
BEGINNING OF SHIFT: REPORT COMPLETE PT ALERT BUT CONFUSED-- DEMENTIA. TALKATIVE AND COOPERATIVE. HERNANDEZ INTACT AND PATENT WITH STATLOCK IN PLACE. NO S/S OF ACUTE DISTRESS.
[2021-09-12 20:15] LABS: Glucose Point of Care 130 mg/dL (70-110)
[2021-09-12] MEDS: tamsulosin 0.4 mg Capsule PO (20:30)
[2021-09-12] MEDS: cefTRIAXone 1,000 MG in sodium chloride 0.9% (plus) 50 ML 100 MG IV (20:30)
[2021-09-12] MEDS: donepezil 5 MG Tablet PO (20:30)
[2021-09-12] MEDS: quetiapine 25 mg Tablet 50 MG PO (20:30)
[2021-09-12] MEDS: trazodone 50 mg Tablet PO (20:30)
[2021-09-12] MEDS: enoxaparin 40 mg/0.4 mL Syringe SUBCUT (23:49)
[2021-09-13] VITALS: BP 130/62; PULSE 80; RESP 17; TEMP 36.6; O2SAT 96
[2021-09-13 04:00] VITALS: BP 123/87; PULSE 69; RESP 16; TEMP 36.5; O2SAT 95
--- NOTE | 2021-09-13 05:33 | PC.NURSE ---
REASSESSMENT REASSESSMENT COMPLETE. NO S/S OF ACUTE DISTRESS. PT REFUSES TO WEAR GOWN-- BUT IS PLEASANT. COVERED WITH BLANKETS. URINARY CATHETER PATENT AND DRAINING WITH STAT-LOCK IN PLACE.
[2021-09-13] MEDS: pantoprazole DR 40 mg Tablet PO (05:38)
[2021-09-13] MEDS: OLANZapine 10 mg TABLET PO (05:38)
[2021-09-13 05:40] LABS: Basophils % 0.4 %; Eosinophils # 0.3 10^3/uL (0.0-0.8); Eosinophils % 4.9 %; Hematocrit 35.9 % (42.0-52.0); Hemoglobin 11.3 g/dL (11.7-16.6); Lymphocytes # 1.2 10^3/uL (0.8-4.8); Lymphocytes % 23.5 %; Mean Corpuscular HGB Conc 31.5 g/dL (30.0-36.0); Mean Corpuscular Hemoglobin 29.6 pg (28.0-34.0); Monocytes # 0.4 10^3/uL (0.2-0.9); Monocytes % 7.5 %; Neutrophils # 3.22 10^3/uL (1.8-7.7); Neutrophils % 63.5 %; Nucleated Red Blood Cells % 0 %; Platelet Count 123 10^3/cmm (130-400); Red Blood Count 3.82 10^6/uL (4.1-5.3); Red Cell Distribution Width 14.6 % (12.1-15.1); White Blood Count 5.1 10^3/uL (4.0-10.0)
[2021-09-13 05:59] LABS: Blood Urea Nitrogen 29 mg/dL (8-23); Calcium 8.8 mg/dL (8.5-10.5); Carbon Dioxide 22 mmol/L (22-29); Chloride 109 mmol/L (98-107); Glucose 141 mg/dL (65-115); Osmolality Calculated 304 mOsm/kg (285-295); Sodium 143 mmol/L (136-145)
[2021-09-13 06:32] LABS: Glucose Point of Care 173 mg/dL (70-110)
[2021-09-13 07:36] VITALS: BP 137/74; PULSE 70; RESP 17; TEMP 36.7; O2SAT 96
[2021-09-13] MEDS: insulin lispro 100 unit/1 mL SUBCUT ×2 (09:20→13:21)
--- NOTE | 2021-09-13 10:23 | PM.DCS ---
Discharge Providers Date of Admission: 09/11/21 21:21 Date of Discharge: September 13, 2021 Attending Provider at Admission: Cheo Velazco Attending Provider at Discharge: Paul Keller MD Primary Care Provider: BARRY Fish Diagnoses at Discharge Discharge Diagnosis (1) Acute metabolic encephalopathy: Status: Acute (2) Dehydration: Status: Acute (3) UTI (urinary tract infection): Status: Acute (4) Vitamin D deficiency: Status: Chronic (5) Depression: Status: Chronic (6) Dementia: Status: Chronic Reason for Visit Reason for Visit: CONFUSION Hospital Course Hospital Course History of Present Illness by Dr. John Paul Puga Haroon is a 81 year old male with past medical history of advanced dementia, diabetes, hypertension, coronary artery disease, depression who is brought by his son to emergency room due to increasing confusion, agitation. The patient was in the hospital recently for altered mental status. He was discharged home with hospice care. However his condition worsened since then. According to his son the patient has become increasingly agitated and sometimes combative. According to him the patient was indicating some discomfort in his suprapubic area. No associated fever or chills. The patient does not eat or drink enough. No chest pain, shortness of breath, cough, palpitations. No diarrhea or vomiting. Emergency room the patient was found to have urinary tract infection. Urine sample was obtained with direct catheterization. The labs also indicate dehydration and acute kidney injury. Hospital course Patient was admitted for management of encephalopathy related to metabolic derangement and UTI, he was treated with IV fluids and ceftriaxone, patient mentation improved, he was cooperative and very pleasant, did work with physical therapist, he was able to eat his breakfast on his own at the time of evaluation on 09/13. Previous urine culture grew Klebsiella and Serratia sensitive to Levaquin, this time gram-negative rods final culture sensitivities pending however he has remained afebrile, no severe leukocytosis. Son does not want placement to any residential for palliative care. He is getting palliative care for his advanced dementia. He will be discharged home today with 5-day course of levofloxacin. He is DNR/DNI. Reed catheter will be removed before discharge. Creatinine improved with IV fluid hydration. TORITO improved. At the time of admission he was combative and required antipsychotics and sedatives however with improvement in dehydration and use of antibiotics his mentation did improve. Physical Exam Narrative: EXAM NARRATIVE: He was working with physical therapist today Awake alert oriented x3 Oriented to himself Able to tell me his name and date of Nonfocal neuro exam Good muscle mass No signs of maceration No skin ulcers No stridor or wheezing Saturating well on room air S1, S2 Urinary Catheter Management^: Reed: Cath Placed During This Visit: yes Reason for Continuing Indwelling Catheter: Other Urinary Catheter Date of Insertion: 09/12/21 Urinary Catheter Time of Insertion: 00:15 Discharge Data Data Completed and Pending: Completed Studies During Hospitalization Category Date Time Status CT head wo con* 7 0450 Urgent Cat Scan 09/11/21 17:45 Completed XR chest 1V susan ble [id number] Stat Exams 09/11/21 17:46 Completed Pending at discharge Category Date Time Status Urine Culture Sta t Lab 09/11/21 19:42 Results Labs from last 24 hours 09/13/21 09/13/21 09/13/21 06:24 05:24 05:24 WBC 5.1 RBC 3.82 L Hgb 11.3 L Hct 35.9 L MCV 94.0 MCH 29.6 MCHC 31.5 RDW 14.6 Plt Count 123 L MPV 11.0 H Neut % (Auto) 63.5 Lymph % (Auto) 23.5 [place] % (Auto) 7.5 Eos % (Auto) 4.9 Baso % (Auto) 0.4 Neut # (Auto) 3.22 Lymph # (Auto) 1.2 [place] # (Auto) 0.4 Eos # (Auto) 0.3 Baso # (Auto) 0.0 Nucleated RBC % (a uto) 0 Nucleated RBCs # 0.0 Sodium 143 Potassium 4.0 Chloride 109 H Carbon Dioxide 22 Anion Gap 16.0 BUN 29 H Creatinine 1.2 GFR Calculation Not Reportable Glucose 141 H POC Glucose 173 H Calculated Osmolal ity 304 H Calcium 8.8 09/12/21 09/12/21 09/12/21 19:44 16:59 11:39 WBC RBC Hgb Hct MCV MCH MCHC RDW Plt Count MPV Neut % (Auto) Lymph % (Auto) [place] % (Auto) Eos % (Auto) Baso % (Auto) Neut # (Auto) Lymph # (Auto) [place] # (Auto) Eos # (Auto) Baso # (Auto) Nucleated RBC % (a uto) Nucleated RBCs # Sodium Potassium Chloride Carbon Dioxide Anion Gap BUN Creatinine GFR Calculation Glucose POC Glucose 130 H 273 H 112 H Calculated Osmolal ity Calcium Vitals: Last Vital Signs Temp 98.0 F 09/13/21 07:36 Pulse 70 09/13/21 07:36 Resp 17 09/13/21 07:36 BP 137/74 09/13/21 07:36 Pulse Ox 96 09/13/21 07:36 Discharge Plan Discharge Patient Disposition: Home Condition: Stable Prescriptions: New levofloxacin 750 mg tablet 750 mg PO DAILY 7 Days Qty: 7 RF: 0 Continued olopatadine [Pataday Twice Daily Relief] 0.1 % drops 1 drp ophthalmic (eye) BID Qty: 5 RF: 2 mupirocin 2 % ointment 1 applic topical BID Qty: 22 RF: 0 Vitamin B-12 2,500 mcg Tablet, Sublingual 2,500 mcg PO QAM RF: 0 acetaminophen 500 mg Tablet 1,000 mg PO Q4H PRN (Reason: Pain) RF: 0 trazodone 50 mg tablet 50 mg PO BEDTIME RF: 0 donepezil 10 mg tablet 10 mg PO QAM RF: 0 Zyprexa 10 mg tablet 10 mg PO QAM RF: 0 simvastatin 40 mg tablet 40 mg PO QPM RF: 0 glimepiride 2 mg tablet 2 mg PO QAM RF: 0 tamsulosin 0.4 mg capsule 0.4 mg PO BEDTIME RF: 0 omeprazole 20 mg capsule,delayed release(DR/EC) 20 mg PO QAM RF: 0 montelukast 10 mg tablet 10 mg PO QAM RF: 0 Remeron 15 mg tablet 15 mg PO QPM RF: 0 ergocalciferol (vitamin D2) 1,250 mcg (50,000 unit) capsule 1,250 mcg PO Q7D RF: 0 pioglitazone 30 mg tablet 30 mg PO QAM RF: 0 metformin 500 mg tablet extended release 24 hr 1,000 mg PO BID RF: 0 Mucinex 600 mg tablet extended release 12hr 600 mg PO BID PRN (Reason: Congestion) RF: 0 Discharge Orders: Discharge Order (Routine); Ordered 09/13/21 Ordered By: Paul Keller Discharge Diet: Regular Discharge Activity: Increase activity as tolerated Patient Instructions: Opioid Safety Discharge Attestations Time Spent in Discharge Care*: less than 30 min Status at Discharge: Cognitive status at discharge: cognitively intact, Behavioral status at discharge: cooperative, Quality Metrics Clinical Quality Measures During this hospital stay, did patient experience: None Coding Level of Care Code Acute Chg FW DC note Diagnoses Acute metabolic encephalopathy G93.41 Dehydration E86.0 UTI (urinary tract infection) N39.0 Vitamin D deficiency E55.9 Depression F32.9 Dementia F03.90
[2021-09-13 12:00] VITALS: BP 113/73; PULSE 83; RESP 17; TEMP 36.9; O2SAT 96
[2021-09-13 12:15] LABS: Glucose Point of Care 255 mg/dL (70-110)
--- NOTE | 2021-09-13 15:04 | PC.NURSE ---
PT HAS DONE WELL FOR ME TODAY. PT HAS NOT HAD ANY COMPLAINTS OF PAIN. PT IS DOING GOOD AND HAS BEEN UP AMBULATING WITH PHYSICAL THERAPY. HERNANDEZ REMOVED. PT TOLERATED WELL. IV REMOVED. PT TOLERATED WELL. PT WILL DISCHARGE TODAY. DISCHARGE PAPERWORK GONE OVER WITH PT. ALL QUESTIONS ANSWERED. MEDICATION SENT TO PHARMACY OF PTS CHOICE. PT SAFELY DISCHARGED FROM HOSPITAL. PT LEFT WITH BROTHER, STUDENT NURSE HELPED ASSIST PT OUT WITH BROTHER.
[2021-09-13 15:08] VITALS: BP 113/73; PULSE 83; RESP 17; TEMP 36.9; O2SAT 96
--- NOTE | 2021-09-20 08:38 | PC.SOCIAL ---
Followed up with LOKESH Vazquez regarding her concerns. She verbalized understanding and was appreciative. Patient is now on Hospice.
== END 2021-09-13 13:00 | disposition home or self-care (01) | DRG 689 ==
LOC: ER 21:43 → MEDSURG 21:46
PROVIDERS: Admitting Provider Internal Medicine; Emergency Provider Emergency Medicine; PCP Nurse Practitioner; Visit Provider Internal Medicine
DX: N39.0 Urinary tract infection, site not specified (principal); G93.41 Metabolic encephalopathy; N17.9 Acute kidney failure, unspecified; F03.91 Unspecified dementia, unspecified severity, with behavioral disturbance; F05 Delirium due to known physiological condition; F03.90 Unspecified dementia, unspecified severity, without behavioral disturbance, psychotic disturbance, mood disturbance, and anxiety; E86.0 Dehydration; E55.9 Vitamin D deficiency, unspecified; F32.A Depression, unspecified; E11.9 Type 2 diabetes mellitus without complications; I10 Essential (primary) hypertension; I25.10 Atherosclerotic heart disease of native coronary artery without angina pectoris; K21.9 Gastro-esophageal reflux disease without esophagitis; E78.5 Hyperlipidemia, unspecified; R33.9 Retention of urine, unspecified; Z66 Do not resuscitate; Z79.84 Long term (current) use of oral hypoglycemic drugs
CPT/HCPCS: 36415; 36416; 51702; 70450; 71045; 80048; 80053; 81001; 81003; 82962; 83735; 84145; 84443; 85025; 87077; 87086; 87186; 96365; 96372; 97161; 97165; 97530; 99285; J0696; J1650; J1815; J7030